=== PATIENT | female | born 1945 | race Caucasian/White ===

== ENCOUNTER → 2020-02-03 11:14 | Outpatient (CLI) | payer MEDICARE, SELFPAY ==
--- NOTE | ~2020-02-03 | XR_ITS ---
XR hip BI 2V w AP pelvis DATE: 02/03/2020 11:47 INDICATION: Bilateral hip pain TECHNIQUE: AP pelvis. AP and lateral views of each hip COMPARISON: None FINDINGS: Diffuse osteopenia. No pelvic fracture. No hip fracture or dislocation. The pubic symphysis and sacroiliac joints are i ntact. Hip joint spaces are preserved. Abdominal aortic and bilateral common iliac artery calcifications. IMPRESSION: Osteopenia No pelvic or hip fracture or bone destruction is detected. Reviewed, dictated and finalized at location B. R MANAGER
--- NOTE | ~2020-02-03 | MM_ITS ---
EXAMINATION: MM screening [facility] BI w samuel HISTORY: Screening mammogram TECHNIQUE: Craniocaudal and mediolateral oblique 3-D tomosynthesis images were obtained and synthetic 2-D images were generated. CAD analysis was submitted and interpreted. COMPARISON: 09/15/2018, 08/24/2017, 07/01/2016 BREAST PARENCHYMAL COMPOSITION: There are scattered areas of fibroglandular density. FINDINGS: Focal asymmetry of the central left breast has decreased in prominence compared to prior ex aminations. There is no evidence of suspicious mass, calcification, or architectural distortion to ulloa ggest malignancy in either breast. There has been no suspicious interval change. IMPRESSION: 1. No mammographic evidence of malignancy. 2. Recommend routine screening mammography in one year. BI-RADS Category 2: Benign finding(s). Reviewed, dictated and finalized at location A. WARE QUALITY AUTOMATION ENGINEER
--- NOTE | ~2020-02-03 | DEXA_ITS ---
Bone Density Report Name: Glendy Roblero Age: 74 Sex: Female Ethnicity: White Date of : 1945 Indication: postmenopausal osteoporosis; height loss; Referring Provider: Cristiana, Tere Callahan Study: Bone densitometry was performed. Exam Date: February 03, 2020 Accession number: [id number] Bone Density: Region BMD T-score Z-score Classification AP Spine (L1-L4) 0.607 -4.0 -1.7 Osteoporosis Femoral Neck (Left) 0.453 -3.6 -1.6 Osteoporosis Total Hip (Left) 0.463 -3.9 -2.2 Osteoporosis Femoral Neck (Right) 0.411 -3.9 -1.9 Osteoporosis Total Hip (Right) 0.463 -3.9 -2.2 Osteoporosis Total Hip Mean 0.463 -3.9 -2.2 Osteoporosis World Health Organization criteria for BMD impression classify patients as: Normal (T-score at or above -1.0), Osteopenia (T-score between -1.0 and -2.5), or Osteoporosis (T-score at or below -2.5). 10-year Fracture Risk: FRAX not reported because: Some T-score for Spine Total or Hip Total or Femoral Neck at or below -2.5 Previous Exams: Region Exam Age BMD T-score BMD Change BMD Change Date g/cm2 vs Baseline vs Previous AP Spine(L1-L4) 02/03/2020 74 0.607 -4.0 -0.213* -0.038* 07/01/2016 71 0.644 -3.7 -0.175* -0.074* 01/21/2013 67 0.718 -3.0 -0.101* -0.023* 04/12/2010 64 0.741 -2.8 -0.078* -0.004 03/13/2008 62 0.745 -2.7 -0.074* -0.037* 03/01/2007 61 0.782 -2.4 -0.037* -0.037* 02/05/2004 58 0.819 -2.1 Total Hip(Left) 02/03/2020 74 0.463 -3.9 -0.246* -0.067* 07/01/2016 71 0.530 -3.4 -0.180* -0.053* 01/21/2013 67 0.583 -2.9 -0.126* -0.028* 04/12/2010 64 0.611 -2.7 -0.098* -0.010 03/13/2008 62 0.621 -2.6 -0.088* -0.056* 03/01/2007 61 0.677 -2.2 -0.032* -0.032* 02/05/2004 58 0.709 -1.9 Total Hip(Right) 02/03/2020 74 0.463 -3.9 -0.280* -0.053* 07/01/2016 71 0.515 -3.5 -0.228* -0.073* 01/21/2013 67 0.589 -2.9 -0.154* -0.026 04/12/2010 64 0.615 -2.7 -0.128* -0.017 03/13/2008 62 0.632 -2.5 -0.111* -0.072* 03/01/2007 61 0.704 -2.0 -0.039* -0.039* 02/05/2004 58 0.743 -1.6 *Denotes significance at 95% confidence level, LSC for AP Spine = 0.022 g/cm2, LSC for Total Hip = 0.027 g/cm2 Clinical Information Provided by Patient:
== END ==
PROVIDERS: Visit Provider Nurse Practitioner Family
DX: Z12.31 Encounter for screening mammogram for malignant neoplasm of breast (principal); Z78.0 Asymptomatic menopausal state; M81.0 Age-related osteoporosis without current pathological fracture; M85.852 Other specified disorders of bone density and structure, left thigh; M85.851 Other specified disorders of bone density and structure, right thigh
CPT/HCPCS: 73521; 77063; 77067; 77080

== ENCOUNTER → 2021-07-01 16:01 | Outpatient (CLI) | payer MEDICARE, SELFPAY ==
--- NOTE | ~2021-07-01 | MM_ITS ---
EXAMINATION: MM screening kit BI w samuel HISTORY: Screening mammogram TECHNIQUE: Craniocaudal and mediolateral oblique 3-D tomosynthesis images were obtained and synthetic 2-D images were generated. CAD analysis was submitted and interpreted. COMPARISON: 02/03/2020, 09/15/2018, 08/24/2017 bilateral screening mammogram examinations BREAST PARENCHYMAL COMPOSITION: There are scattered areas of fibroglandular density. FINDINGS: Stable fibroglandular asymmetry. Occasional benign calcifications. There is no evidence of suspicious mass, calcification, or architectural distortion to suggest malignancy in either breast. T here has been no suspicious interval change. IMPRESSION: 1. No mammographic evidence of malignancy. 2. Recommend routine screening mammography in one year. BI-RADS Category 2: Benign finding(s). Reviewed, dictated and finalized at location A.
== END ==
PROVIDERS: PCP Nurse Practitioner Family; Visit Provider Nurse Practitioner Family
DX: Z12.31 Encounter for screening mammogram for malignant neoplasm of breast (principal)
CPT/HCPCS: 77063; 77067

== ENCOUNTER → 2022-09-05 13:14 | Outpatient (CLI) | payer MEDICARE, SELFPAY ==
--- NOTE | ~2022-09-05 | MM_ITS ---
EXAMINATION: MM screening kit BI w samuel HISTORY: Screening mammogram TECHNIQUE: Craniocaudal and mediolateral oblique 3-D tomosynthesis images were obtained and synthetic 2-D images were generated. CAD analysis was submitted and interpreted. COMPARISON: 07/01/2021, 02/03/2020 BREAST PARENCHYMAL COMPOSITION:There are scattered areas of fibroglandular density. FINDINGS: No suspicious mass, calcification, or architectural distortion are identified in either alana ast to suggest malignancy. There has been no suspicious interval change. IMPRESSION: No mammographic evidence of malignancy. Recommend routine screening mammography in one year. BI-RADS Category 1: Negative Reviewed, dictated and finalized at location .
== END ==
PROVIDERS: PCP Nurse Practitioner Family; Visit Provider Nurse Practitioner Family
DX: Z12.31 Encounter for screening mammogram for malignant neoplasm of breast (principal)
CPT/HCPCS: 77063; 77067

== ENCOUNTER 2023-04-15 15:55 | Outpatient (CLI) | payer MEDICARE, SELFPAY ==
[2023-04-15 16:20] LABS: Basophils Absolute Auto 0.1 K/mm3 (0.0-0.1); Basophils Percent Auto 0.4 % (0.2-1.2); Eosinophils Absolute Auto 0.1 K/mm3 (0-0.3); Eosinophils Percent Auto 0.3 % (0-4.4); Hematocrit 41.2 % (37.0-47.0); Hemoglobin 13.7 g/dL (12.0-15.0); Immature Granulocyte Absolute 0.08 K/mm3 (0.00-0.031); Immature Granulocyte Percent A 0.5 % (0-0.5); Lymphocytes Absolute Auto 2.28 K/mm3 (0.9-3.2); Mean Corpuscular HGB Conc 33.3 g/dl (32-36); Mean Corpuscular Hemoglobin 32.2 pg (26-34); Mean Corpuscular Volume 96.7 fl (80-100); Mean Platelet Volume 8.6 fl (7.4-10.4); Monocytes Absolute Auto 0.9 K/mm3 (0.1-0.6); Monocytes Percent Auto 5.3 % (2.6-8.5); Neutrophils Absolute Auto 12.9 K/mm3 (1.3-6.7); Neutrophils Percent Auto 79.5 % (45.5-73.1); Platelet Count Result 460 k/mm3 (150-375); Red Blood Count 4.26 M/mm3 (4.2-5.4); Red Cell Distribution Width 13.2 % (11.5-14.5); White Blood Count 16.2 K/mm3 (4.5-10.0)
[2023-04-15 17:12] LABS: Erythrocyte Sedimentation Rate 13 mm/hr (0-20)
[2023-04-15 18:33] LABS: Iron 76 ug/dL (37-170)
[2023-04-15 18:42] LABS: Percent Iron Saturation 23 % (20-50)
[2023-04-15 20:12] LABS: Alanine Aminotransferase 11 U/L (6-35); Albumin Level 4.7 g/dL (3.5-5.1); Alkaline Phosphatase 65 U/L (38-126); Anion Gap 9 mmol/L (8-16); Aspartate Amino Transferase 24 U/L (14-36); Bilirubin,Total 0.5 mg/dL (0.2-1.3); Blood Urea Nitrogen 6 mg/dL (7-17); CRP < 0.5 mg/dL (<1.0); Calcium 10.1 mg/dL (8.4-10.2); Carbon Dioxide 30 mmol/L (22-30); Chloride 97 mmol/L (98-107); Estimated Glomerular Filt Rate > 60; Glucose 105 mg/dL (65-110); Potassium 4.3 mmol/L (3.4-5.0); Sodium 136 mmol/L (137-145)
== END 2023-04-15 15:56 | disposition home or self-care (01) ==
PROVIDERS: Nurse Practitioner Family; PCP Nurse Practitioner Family; Visit Provider Internal Medicine Hematology & Oncology
DX: D72.829 Elevated white blood cell count, unspecified (principal); D50.9 Iron deficiency anemia, unspecified
CPT/HCPCS: 36415; 80053; 82728; 83540; 83550; 85025; 85652; 86140; 88184; 88185

== ENCOUNTER 2023-06-15 12:39 | Outpatient (CLI) | payer MEDICARE, SELFPAY ==
--- NOTE | ~2023-06-15 | CT_ITS ---
CT Scan of the Chest without Contrast: Clinical Indication: Lung cancer screening, nicotine dependence Technique: Contiguous sections were acquired throughout the chest without intravenous contrast. Dose reduction technique was used on this scan by utilizing automated exposure control and iterative recon struction technique. The dose-length product (DLP) was 32.61 mGy-cm. Findings: There is no evidence of any significant mediastinal, hilar or axillary lymphadenopathy. There are ath erosclerotic calcifications of the aorta. There is no evidence of pleural or pericardial effusion. There is advanced emphysema. There is a 4 mm fissural nodule right lung (axial image 66). Images through the upper abdomen reveal no abnormalities. Impression: Lung RADS 2: Benign appearance. 12 month follow-up screening CT advised. Advanced emphysema. Reviewed, dictated and finalized at [facility]. Impression: Lung RADS 2: Benign appearance. 12 month follow-up screening CT advised. Advanced emphysema.
== END 2023-06-15 12:40 ==
LOC: MICIMG 12:40
PROVIDERS: PCP Nurse Practitioner Family; Visit Provider Nurse Practitioner Family
DX: Z12.2 Encounter for screening for malignant neoplasm of respiratory organs (principal); Z87.891 Personal history of nicotine dependence; J43.9 Emphysema, unspecified
CPT/HCPCS: 71271

== ENCOUNTER 2023-06-29 10:53 | Outpatient (CLI) | payer MEDICARE, SELFPAY ==
[2023-06-29 11:11] LABS: Basophils Percent Auto 0.4 % (0.2-1.2); Eosinophils Absolute Auto 0.1 K/mm3 (0-0.3); Eosinophils Percent Auto 0.6 % (0-4.4); Hemoglobin 13.7 g/dL (12.0-15.0); Immature Granulocyte Absolute 0.04 K/mm3 (0.00-0.031); Immature Granulocyte Percent A 0.4 % (0-0.5); Lymphocytes Absolute Auto 2.31 K/mm3 (0.9-3.2); Lymphocytes Percent Auto 23.5 % (18.3-44.2); Mean Corpuscular HGB Conc 32.6 g/dl (32-36); Mean Corpuscular Hemoglobin 31.9 pg (26-34); Mean Corpuscular Volume 97.9 fl (80-100); Mean Platelet Volume 8.4 fl (7.4-10.4); Monocytes Absolute Auto 0.7 K/mm3 (0.1-0.6); Monocytes Percent Auto 6.8 % (2.6-8.5); Neutrophils Absolute Auto 6.7 K/mm3 (1.3-6.7); Neutrophils Percent Auto 68.3 % (45.5-73.1); Platelet Count Result 422 k/mm3 (150-375); Red Blood Count 4.29 M/mm3 (4.2-5.4); Red Cell Distribution Width 12.7 % (11.5-14.5); White Blood Count 9.8 K/mm3 (4.5-10.0)
[2023-06-29 11:20] LABS: Blood Urea Nitrogen 7 mg/dL (8-26); Carbon Dioxide 29 mmol/L (22-30); Chloride 97 mmol/L (98-109); Estimated Glomerular Filt Rate 54; Glucose 95 mg/dL (70-105); Ionized Calcium (POC) 1.14 mmol/L (1.11-1.31); Potassium 4.5 mmol/L (3.5-4.9); Sodium 136 mmol/L (138-146)
== END 2023-06-29 10:54 | disposition home or self-care (01) ==
LOC: ANHLAB 10:56
PROVIDERS: Nurse Practitioner Family; PCP Nurse Practitioner Family; Visit Provider Internal Medicine Hematology & Oncology
DX: D72.829 Elevated white blood cell count, unspecified (principal)
CPT/HCPCS: 36415; 80047; 85025

== ENCOUNTER 2023-07-09 13:07 | Outpatient (CLI) | payer MEDICARE, SELFPAY ==
--- NOTE | ~2023-07-09 | XR_ITS ---
EXAMINATION: XR scapula RT DATE: 07/09/2023 13:33 INDICATION: Right posterior thorax bump. TECHNIQUE: 2 views of right scapula were obtained. COMPARISON: None. FINDINGS: There is thoracic dextroscoliosis. No fracture. There is mild osteoarthritis of acromioclav icular joint. Glenohumeral joint is normal. IMPRESSION: 1. Mild right acromioclavicular joint osteoarthritis. Reviewed, dictated and finalized at location E.
--- NOTE | ~2023-07-09 | XR_ITS ---
EXAMINATION: XR thoracic spine 2V DATE: 07/09/2023 13:33 INDICATION: Kyphosis deformity of spine. TECHNIQUE: 2 views of thoracic spine were obtained. COMPARISON: Chest CT 06/15/2023. FINDINGS: There is 27 degrees dextroscoliosis of thoracic spine. There is kyphosis of thoracic spine. Vertebral body heights are normal. Intervertebral disc heights are normal. There are endplate osteop hytes at most levels. There is multilevel mild facet joint osteoarthritis. IMPRESSION: 1. Mild thoracic spondylosis. 2. Thoracic dextroscoliosis and kyphosis. Reviewed, dictated and finalized at location E.
== END 2023-07-09 13:08 ==
PROVIDERS: PCP Physician Assistant; Visit Provider Physician Assistant
DX: M43.04 Spondylolysis, thoracic region (principal); M41.84 Other forms of scoliosis, thoracic region; M40.204 Unspecified kyphosis, thoracic region
CPT/HCPCS: 72070; 73010

== ENCOUNTER 2023-12-30 13:04 | Outpatient (CLI) | payer MEDICARE, SELFPAY ==
[2023-12-30 13:26] LABS: Basophils Absolute Auto 0.1 K/mm3 (0.0-0.1); Basophils Percent Auto 0.5 % (0.2-1.2); Eosinophils Absolute Auto 0.1 K/mm3 (0-0.3); Eosinophils Percent Auto 0.6 % (0-4.4); Hematocrit 40.4 % (37.0-47.0); Hemoglobin 12.9 g/dL (12.0-15.0); Immature Granulocyte Absolute 0.06 K/mm3 (0.00-0.031); Immature Granulocyte Percent A 0.5 % (0-0.5); Lymphocytes Absolute Auto 2.05 K/mm3 (0.9-3.2); Lymphocytes Percent Auto 16.4 % (18.3-44.2); Mean Corpuscular HGB Conc 31.9 g/dl (32-36); Mean Corpuscular Hemoglobin 31.4 pg (26-34); Mean Corpuscular Volume 98.3 fl (80-100); Mean Platelet Volume 8.2 fl (7.4-10.4); Monocytes Absolute Auto 0.7 K/mm3 (0.1-0.6); Monocytes Percent Auto 5.8 % (2.6-8.5); Neutrophils Absolute Auto 9.6 K/mm3 (1.3-6.7); Neutrophils Percent Auto 76.2 % (45.5-73.1); Platelet Count Result 406 k/mm3 (150-375); Red Blood Count 4.11 M/mm3 (4.2-5.4); Red Cell Distribution Width 13.5 % (11.5-14.5); White Blood Count 12.5 K/mm3 (4.5-10.0)
[2023-12-30 13:31] LABS: Blood Urea Nitrogen 6 mg/dL (8-26); Carbon Dioxide 26 mmol/L (22-30); Chloride 97 mmol/L (98-109); Estimated Glomerular Filt Rate > 60; Glucose 112 mg/dL (70-105); Ionized Calcium (POC) 1.14 mmol/L (1.11-1.31); Potassium 3.8 mmol/L (3.5-4.9); Sodium 135 mmol/L (138-146)
[2023-12-30 17:06] LABS: Alanine Aminotransferase 8 U/L (6-35); Albumin Level 4.2 g/dL (3.5-5.1); Alkaline Phosphatase 50 U/L (38-126); Anion Gap 8 mmol/L (4-12); Aspartate Amino Transferase 21 U/L (14-36); Bilirubin,Total 0.4 mg/dL (0.2-1.3); Blood Urea Nitrogen 8 mg/dL (7-17); Calcium 9.2 mg/dL (8.4-10.2); Carbon Dioxide 29 mmol/L (22-30); Chloride 97 mmol/L (98-107); Cholesterol 169 mg/dL (0-200); Estimated Glomerular Filt Rate > 60; Glucose 115 mg/dL (65-110); HDL Direct 65 mg/dL; Potassium 3.9 mmol/L (3.4-5.0); Sodium 134 mmol/L (137-145); Triglycerides 77 mg/dL (<150)
[2023-12-30 17:18] LABS: LDL Cholesterol Direct 78 mg/dL
[2023-12-30 17:38] LABS: Thyroid Stimulating Hormone 0.787 uIU/mL (0.465-4.680)
[2023-12-30 21:26] LABS: Free T4 Free Thyroxine 1.01 ng/mL (0.78-2.19)
== END 2023-12-30 13:05 | disposition home or self-care (01) ==
LOC: ANHLAB 13:06
PROVIDERS: Nurse Practitioner Family; PCP Physician Assistant; Visit Provider Internal Medicine Hematology & Oncology
DX: Z13.220 Encounter for screening for lipoid disorders (principal); Z79.899 Other long term (current) drug therapy
CPT/HCPCS: 36415; 80047; 80048; 80061; 80076; 84439; 84443; 85025

== ENCOUNTER 2024-07-01 13:27 | Outpatient (CLI) | payer MEDICARE, SELFPAY ==
--- NOTE | ~2024-07-01 | CT_ITS ---
EXAMINATION: CT lung screening DATE: 07/01/2024 14:35 INDICATION: Nicotine dependence TECHNIQUE: Computed tomography (CT) of the chest was performed without intravenous contrast. The dose -length product was 63.56 mGy-cm. Automated exposure control and iterative reconstruction technique w ere employed. COMPARISON: CT dated 06/15/2023 FINDINGS: Heart size normal. No thoracic lymphadenopathy. There is atherosclerosis of the aorta and c oronary arteries. No significant pleural or pericardial effusion. There is dextroscoliosis of the tho racic spine. No focal lytic or blastic lesions are seen. Severe emphysema. Stable 4 mm fissural nodul e on the right there is dependent atelectasis. No pneumothorax. IMPRESSION: 1. Lung-RADS category 2: Benign appearance or behavior. Continue annual screening with noncontrast lo w-dose chest CT in 12 months. Reviewed, dictated and finalized at location A. IMPRESSION: 1. Lung-RADS category 2: Benign appearance or behavior. Continue annual screeni ng with noncontrast low-dose chest CT in 12 months.
--- OUTSIDE RECORDS SUMMARY | 2024-07-01 13:33 | XMS_ITS | CONTINUITY OF CARE DOCUMENT ---
Author Name felipe wang Address Unknown Organization [facility] Address [address] [facility] [address] [place] [address] Phone [phone] Care Team Providers Care Packager Or Packer And Weigher Name Role Phone felipe wang Unavailable Unavailable
--- OUTSIDE RECORDS SUMMARY | 2024-07-01 13:34 | XMS_ITS | Continuity of Care Document ---
Author Organization [facility] Address [address] [place] [address] [place] [address] Phone Care Team Providers Care Filter Washer And Presser Name Role Phone Gamal Recio Unavailable Unavailable [...] Providers Copied on Encounter Office/outpat ient Visit, [facility], [address] [place] [address] [address], [place], [place], [id number], [place] tel:[phone] [facility] No Information 2-201 0 Hemal Yeung. Arlet [facility] [address], [place], [address], [place]. tel:[phone] Referring Provider: Arlet Calderon [facility] [address], [place], [address]. tel:[phone] Office/outpat ient Visit, [facility], [address] [place] [address] [address], [place], [place], [id number], [place] tel:[phone] [facility] [place] No Information Mar-0 9-201 0 Valente Petel. [address], [place], [place], [facility], . tel:[phone] Office/outpat ient Visit, [facility], [address], [place], [place], [address], [place] tel:[phone] [facility] No Information Oct-0 5-200 9 Doisy Edward. [address], [place], [place], [facility], [place]. tel:[phone] [facility]pat [facility], [facility], [address] [place] [address] [address], [place], [place], [address], [place] tel:[phone] [facility] No Information Sep-2 1-200 9 Doisy Edward. [address], [place], [place], [facility], [place]. tel:[phone] [facility], [address] [place] [address] [address], [place], [place], [id number], [place] tel:[phone] [facility] No Information Benton-3 1-200 9 Doisy Edward. [address], [place], [place], [facility], [place]. tel:[phone] Office/outpat ient Visit, [facility], [address] [place] [address] [address], [place], [place], [id number], [place] tel:[phone] [facility] [place] No Information Robby-0 9-200 8 Doisy Edward. [address], [place], [place], [facility], [place]. tel:[phone] [facility]/outpat ient Visit, [facility], [address], [place], [place], [id number], tel:[phone] [facility] No Information 200 7 Hemal Yeung. [address] [place] [address] , [address], [place], [place], [facility], . tel:[phone] Referring Provider: Arlet Calderon [facility] [address], [place], [place], [facility]. tel:[phone] [facility], [address], [place], [place], [id number], tel:[phone] [facility] [place] No Information 7 Hemal Yeung. [address] [place] [address] , [address], [place], [place], [facility], . tel:[phone] Referring Provider: Arlet Calderon [facility] [address], [place], [place], [facility]. tel:[phone] Family History Family Member Type Diagnosis Age At Onset No Information Payers Payer name Insurance type Covered republican ID Authoriza tion(s) No Information Social History [...]
--- OUTSIDE RECORDS SUMMARY | 2024-07-01 13:34 | XMS_ITS | Data Portability ---
Author Organization [facility]ju[facility]ita[facility] Patience Address [address] [place] [address] Care Team Providers Care Salesperson Jewelry Name Role Phone MARY GUDINO Primary Care Provider Unavailab le Assessment No assessment recorded. Plan of Treatment Reminders Order Date Submit Date Provider Last Modified By Organization Details Last Modified Time Details Appointments ANY 15 2024 01:00P M HARDIK Reilly Not available Not available Not available [facility], [facility]24 [email or web address], [address], [place], [address], 04/01/2024 14:03:10 hepatic function panel, serum 2023 024 [email or web address], 20[address], [place], [address], 04/01/2024 14:03:09 BMP, serum or plasma 2023 024 [email or web address], [address], [place], [address], 04/01/2024 14:03:09 TSH + free T4, serum 2023 024 [email or web address], [address], [place], [address], 04/01/2024 14:03:10 Referral None recorded. Procedures None recorded. Surgeries None recorded. Imaging XR, thoracic spine, 2 view 2023 024 [facility], 2022 Mirtha [address], [address], [place], [address], 07/10/2023 07:26:35 XR, scapula [address] [facility], 2022 [address], [place], [address], 07/29/2023 13:55:35 MAMMO, screening , digital, bilateral [address] [facility], [address]22 [address], [place], [address], 03/08/2024 09:41:10 DEXA [address], 2022 [address], [address], [place], [address], 03/08/2024 09:41:04 Medication Orders None recorded. Patient TargetsNo targets recorded. Patient InstructionsNo instructions recorded. Reason for Referral None Reported. Results Created Date Observation Date Name Description Value Unit Range Abnormal Flag Note LastModifiedBy Organization Detail LastModifiedTime 07/10/19 24 07/09/2023 XR, thora cic spine , 2 view No observ ation record ed. [email or web address] 20[address], [place], [address], 07/14/2023 17:47:16 Result Notes None recorded. Problems Name Problem SNOMED Code Status Onset Date Resolution Date Notes Provider Name and Address Organization Details Recorded Time Bilateral hip joint pain 6658838860730 9100 Active 2023 HARDIK Reilly Attn: Rebeka xie,[address] [facility], [place], [address], [place] - [facility] 4 15:47:17 Chronic obstructive pulmonary disease 30469011 Active 2023 HARDIK Reilly Attn: Rebeka xie,[address] [facility], [place], [address], [place] [facility] 4 15:47:18 Leukocytosi s 127399203 Active 2023 HARDIK Reilly Attn: Rebeka xie,[address] [place], [address], [place] [facility] 4 15:47:19 Hypoxemia 522650511 Active 2023 HARDIK Reilly Attn: Rebeka xie,[address] [place], [address], [place] [facility] 4 15:47:22 Kyphosis deformity of spine 711453157 Active 2023 HARDIK Reilly Attn: Rebeka xie,[address] [place], [address], [place] [facility] 4 15:47:24 Long-term drug therapy Active 2023 HARDIK Reilly Attn: Rebeka g,[address] [place], [address], [place] [facility] 4 15:47:30 Allergic rhinitis 02455911 Active 2023 Alison Reyna LPN null, [place] [facility] 4 10:04:29 Body mass index less than 20 278367727 Active 2023 HARDIK Reilly Attn: Rebeka xie,[address] [place], [address], [place] [facility] 4 10:12:29 Problem Notes None recorded. Procedures Surgical History None recorded. Imaging Results Imaging Date Name Status LastModified by Organiz ation Details LastModified Time 07/09/2023 XR, thoracic spine, 2 view completed [facility] [address], [place], [address], 07/14/2023 17:47:16 Procedure Notes None recorded. Medical Equipment None Reported. Allergies Allergen ID Allergen Name Allergen Category Reaction Reaction Severity Criticality Documentation Date Start Date Code Code System Note Provider Name and Address Organization Details Recorded Time 691075 codeine medicatio n Not available Not available Not available 07/08/2023 2670 RxNorm Not Available Not Available Not Available 199292 Product containin g penicilli n (product) medicatio n Not available Not available Not available 07/08/2023 20820 8001 SNOMED Not Available Not Available Not Available 550421 ibuprofen medicatio n Not available Not available Not available 07/08/2023 5640 RxNorm Not Available Not Available Not Available Medications Name Sig Start Date Stop Date Status Note LastModified by Organization Details LastModified Time nystatin 100,000 unit/mL oral suspension SHAKE LIQUID AND TAKE 5 ML BY MOUTH FOUR TIMES DAILY NEEDED active Not Available Not Available No t Available hydrocortison e 2.5 % topical cream with perineal applicator APPLY THIN LAYER TOPICALLY TO THE AFFECTED AREA 2 TO 4 TIMES DAILY NEEDED active Not Available Not Available No t Available montelukast 10 mg tablet TAKE 1 TABLET BY MOUTH EVERY DAY active Not Available Not Available No t Available gabapentin 100 mg capsule TAKE 1 CAPSULE BY MOUTH EVERY OTHER DAY active Not Available Not Available No t Available fluticasone propionate 50 mcg/actuation nasal spray,suspens ion SHAKE LIQUID AND USE 2 SPRAYS IN EACH NOSTRIL AT SUPPER active Not Available Not Available No t Available Ventolin HFA 90 mcg/actuation aerosol inhaler INHALE 1 TO 2 PUFFS BY MOUTH EVERY 4 TO 6 HOURS NEEDED FOR SHORTNESS OF BREATH OR WHEEZING active Not Available Not Available No t Available Vitamin D3 50 mcg (2,000 unit) capsule Take by oral route. active Not Available Not Available No t Available Anoro Ellipta 62.5 mcg-25 mcg/actuation powder for inhalation INHALE 1 PUFF BY MOUTH DAILY active Not Available Not Available No t Available Vitals Date Recorded Body height Body mass index (BMI) Body weight Oxygen saturation Oxygen saturation in Arterial blood by Pulse oximetry Heart rate Systolic blood pressure Diastolic blood pressure Provider Name and Address Organization Details Last Updated DateTime 4 155.58 cm 16.7 kg/m2 31859.7 2 g 89 % 89 % 101 /min 130 mm[Hg] 72 mm[Hg] Kassy Roper [place] - [facility] 4 15:34:41 Date Recorded Respiratory rate Oxygen saturation Oxygen saturation in Arterial blood by Pulse oximetry Systolic blood pressure Diastolic blood pressure Systolic blood pressure Diastolic blood pressure Provider Name and Address Organization Details Last Updated DateTime 4 18 /min 94 % 94 % 140 mm[Hg] 80 mm[Hg] 132 mm[Hg] 80 mm[Hg] HARDIK Reilly Attn: Rebeka xie,[address] [facility], [place], [address], [facility] 4 16:00:16 Date Recorded Body height Body mass index (BMI) Body weight Respiratory rate Oxygen saturation Oxygen saturation in Arterial blood by Pulse oximetry Heart rate Systolic blood pressure Diastolic blood pressure Provider Name and Address Organization Details Last Updated DateTime 4 155.58 cm 15.6 kg/m2 73663.3 5 g 18 /min 96 % 96 % 88 /min 138 mm[Hg] 88 mm[Hg] Kassy Roper MA [facility] 4 15:27:13 Social History Question Answer Notes LastModified by Organizat ion Details LastModified Time Tobacco Smoking Status Current Every Day Smoker Kassy Roper MA null, [facility] 07/08/2023 15:29:20 Do You Have An Advance Directive? Yes Information n ot available 07/08/2023 What Is Your Level Of Alcohol Consumption? None Information not available 07/08/2023 Are You Blind Or Do You Have Difficulty Seeing? No Information n ot available 07/08/2023 What Is Your Level Of Caffeine Consumption? None DECAFE/ Information not available 07/08/2023 In The 14 Days Before Symptom Onset, Have You Had Close Contact With A Laboratory-confirm ed COVID-19 While That Case Was Ill? No Information n ot available 07/08/2023 In The 14 Days Before Symptom Onset, Have You Had Close Contact With A Person Who Is Under Investigation For COVID-19 While That Person Was Ill? No Information not available 07/08/2023 Have You Been To An Area Known To Be High Risk For COVID-19? No Information not available 07/08/2023 Are You Deaf Or Do You Have Serious Difficulty Hearing? No Information not available 07/08/2023 What Type Of Diet Are You Following? REGULAR Information n ot available 07/08/2023 Are There Any Guns Present In Your Home? No Information not available 07/08/2023 What Was The Date Of Your Most Recent Tobacco Screening? 12/16/2023 Information not available 12/16/2023 What Is Your Current Pack Years? 20-29packye ars Information not available 07/08/2023 Do You Use Your Seat Belt Or Car Seat Routinely? Yes Information not available 07/08/2023 Do You Have Smoke And Carbon Monoxide Detectors In Your Home? Yes Information not available 07/08/2023 How Much Tobacco Do You Smoke? 1 PPD Information not available 07/08/2023 Do You Feel Stressed (tense, Restless, Nervous, Or Anxious, Or Unable To Sleep At Night)? [id number] Information not available 07/08/2023 Do You Use Any Illicit Or Recreational Drugs? No Information not available 07/08/2023 Do You Use Sunscreen Routinely? No Information not available 07/08/2023 Has Tobacco Cessation Counseling Been Provided? Yes Information not available 07/08/2023 On What Date Was Tobacco Cessation Counseling Provided? 12/16/2023 Information not available 12/16/2023 Do You Or Have You Ever Used Any Other Forms Of Tobacco Or Nicotine? No Information not available 07/08/2023 Sex: Female Functional Status Question Answer Note LastModified by Organizat ion Details LastModified Time Are you able to care for yourself? Yes Information not available 07/08/2023 What is your exercise level? Occasional Information not available 07/08/2023 Mental Status None recorded. Family History Relationship Description Onset Age of this Age Resolved Age Notes LastModified by Organization Details LastModified Time Mother Hypertensive disorder [email or web address] Not available 2023 16:19:57 Mother Hypercholest erolemia tcarterma Not available 2023 16:20:04 Mother Diabetes mellitus [email or web address] Not available 2023 16:20:10 Medical History Condition Response Coronary Artery Disease N Other N Atrial Fibrillation N High Blood Pressure N Depression N COPD Y Blood Clots N Anxiety Disorder N Muscle, Joint, or Bone Problems Y Acid Reflux (GERD) N Cancer Y Stroke N High Cholesterol N Liver Disease N Headaches N Kidney or Bladder Problems N Thyroid Problems N GI Problems N Skin Problems N Anemia N Heart Attack (NC) N Diabetes N Seizures/Epilepsy N Asthma N Allergies N Hepatitis N Heart Failure N Osteoporosis N Gynecological History Statement/Question Response Menses Monthly N Current Control Method None Obstetrics History GPAL:G 0 P 0 0 0 0 Immunizations Vaccine Type Date Status Note Provider Nam e and Address Organization Details Recorded Time Influenza, split virus, quadrivalent, preservative 0 completed EDUARDO Bauer, [place] - [facility] 12/30/2023 13:59:53 Influenza, split virus, quadrivalent, preservative 8 completed Kassy Roper [place], [place] [facility] 12/30/2023 13:59:53 Influenza, adjuvanted, trivalent, PF 8 completed Kassy [place] [facility] 12/30/2023 13:59:53 Influenza, adjuvanted, trivalent, PF 7 completed Kassy [place] [facility] 12/30/2023 13:59:53 Influenza, high-dose, quadrivalent, PF 2 completed Kassy [place] [facility] 12/30/2023 13:59:53 Influenza, high-dose, quadrivalent, PF 0 completed Kassy [place] [facility] 12/30/2023 13:59:53 Influenza, high-dose, quadrivalent, PF 1 [place] [facility] 12/30/2023 13:59:53 Influenza, high-dose, quadrivalent, PF 3 [place] [facility] 12/30/2023 13:59:53 COVID-19, mRNA, LNP-S, PF, 30 mcg/0.3 mL dose 1 [place] ED[place] [facility] 12/30/2023 13:59:53 COVID-19, mRNA, LNP-S, PF, 30 mcg/0.3 mL dose 1 completed Kassy [place] [facility] 12/30/2023 13:59:53 COVID-19, mRNA, LNP-S, PF, 30 mcg/0.3 mL dose 1 completed Kassy [place] [facility] 12/30/2023 13:59:53 COVID-19, mRNA, LNP-S, PF, 30 mcg/0.3 mL dose 1 [place] [facility] 12/30/2023 13:59:53 pneumococcal polysaccharide PPV23 0 [place] ED[place] [facility] 12/30/2023 13:59:53 Pneumococcal conjugate PCV 13 9 completed Kassy [place] [facility] 12/30/2023 13:59:53 Pneumococcal conjugate PCV 13 9 completed Kassy [place] [facility] 12/30/2023 13:59:53 Influenza, high-dose, trivalent, PF 4 completed [place]assy [place] [facility] 12/30/2023 13:59:53 Influenza, high-dose, trivalent, PF 6 completed Kasys Roper [place] [facility] 12/30/2023 13:59:53 Influenza, high-dose, trivalent, PF 6 completed [place]assy [place] [facility] 12/30/2023 13:59:53 Influenza, split virus, trivalent, preservative 1 completed [place]assy [place] [facility] 12/30/2023 13:59:53 Influenza, split virus, trivalent, preservative 3 completed [place]assy [place] [facility] 12/30/2023 13:59:53 Influenza, split virus, quadrivalent, PF 9 completed Kassy Roper MA null, [place] - [facility] 12/30/2023 13:59:53 Influenza, high-dose, trivalent, PF 4 completed HARDIK Reilly Attn: Accounting,[address] [facility], [place], [address], [facility] 12/31/2023 14:28:21 Past Encounters Encounter ID Performer Location Encounter Start Date Encounter Closed Date Diagnosis/Indication Diagnosis SNOMED-CT Code Diagnosis ICD10 Code Diagnosis Note [id number] HARDIK Reilly [facility] [employer] [address] [place] [address] 07/08/2023 15:05:31 07/08/2023 16:10:39 Chronic obstructive pulmonary disease 15602219 J44.9 Pulmonary is TANMA[facility] Becerra [facility]. Leukocytosis 127902674 D 72.[address] Brownlee and her WBC improved and she follows up in 6 months. Bilateral hip joint pain 6957383936 4608275 M25.551 M25.552 hx noted. sees pain management . Long-term drug therapy 661942950 Z79.899 will await records that she will bring us tomorrow. she thinks labs were done in the winter plus dr. Brownlee completed some recently. Kyphosis d eformity of spine 376311915 M40.209 check xray tspine and scapula with deformity noted on exam today Screening mammography 24 177600 Z12.31 annual mammogram due Screening for osteoporosis 096348750 Z13.820 due for DEXA screening. Hypoxemia 329110790 R09. 02 86% on room air after walking, up to 94% with rest. [id number] HARDIK Reilly [facility] [employer] [address] [place] [address] 12/16/2023 14:38:45 12/24/2023 11:54:41 Chronic obstructive pulmonary disease 20044711 J44.9 Pulmonary is [facility]. Leukocytosis 403000835 D 72.[address] Brownlee and her WBC improved and she follows up in 6 months. Bilateral hip joint pain 9622606041 4772343 M25.551 M25.552 hx noted. sees pain management . Hypoxemia 354574810 R09. 02 86% on room air after walking, up to 94% with rest. Kyphosis d eformity of spine 009055824 M40.209 check xray tspine and scapula with deformity noted on exam today Long-term drug therapy 115451527 Z79.899 All routine labs were ordered for routine six-month evaluation Cholesterol screening 27 4828800 Z13.220 Body mass index less than 20 892531760 Z68.1 15.6 [id number] HARDIK Reilly [facility] [address] [place] [address] 12/31/2023 14:07:26 01/04/2024 15:07:00 Administration of influenza vaccine 54661628 Z23 Health Concerns Section Related Observation LastModified by Organization Detai ls LastModified Time None Recorded Concern Status LastModified by Organization Details LastModified Time None Recorded Advance Directives Directive Y: Payers Encounter Date Sequence Insurance Name Policy Number Policy Paul Covered Member ID Paul Member ID Guarantor Name 07/08/2023 1 [place] Glendy Roblero [id number] 2 Glendy Roblero 07/08/2023 2 [place] [id number] Glendy Roblero [id number] Glendy Roblero 12/16/2023 2 [place] [id number] Glendy Roblero [id number] Glendy Roblero 12/16/2023 [place] [facility] Glendy Roblero [id number] 2 Glendy Roblero 12/31/2023 1 [place] Glendy Roblero [id number] 2 Glendy Roblero 12/31/2023 2 [place] [id number] Glendy Roblero [id number] Glendy Roblero Notes Date Note Type Note Provider Name and Address Organization Details Recorded Time 07/08/2023 text/html COPDReported bypatient.Notes:bolivar ing Anoro Ellipta inhaler.Hip(s)Repor kevyn bypatient.Notes:arden at. hip arthritis. sees pain management and gets gabapentin 100mg daily. HARDIK Reilly Attn: Accounting,[address] [place], [address], [facility] 07/15/2023 13:40:25 12/16/2023 text/html COPDReported bypatient.Notes:bolivar ing Anoro Ellipta inhaler. Patient follows with salon manager for managementHip(s)Rep orted bypatient.Notes:arden at. hip arthritis. sees pain management and gets gabapentin 100mg daily. Patient has chronic leukocytosis and follows with oncology hematology for management and evaluation HARDIK Reilly Attn: Accounting,[address] [place], [address], [facility] 01/04/2024 10:12:51 OBGyn Episode No OBEpisode recorded.
--- OUTSIDE RECORDS SUMMARY | 2024-07-01 13:34 | XMS_ITS | Data Portability ---
Author Organization [place] [facility] [employer], Main Office Address [address] [place] [address] Assessment Encounter Date Assessment Date Assessment LastModified by Organization Details LastModified Time 06/16/2022 06/16/2022 Cscope- 03/2018- [facility] repeat 2023 Mammo- 06/2021 DEXA- osteoporosis, refuses meds LDCT- per pulm WWE- DRY PLASTERER- Dr. Chan Call office if worse, ER if life threatening illness RTC 4 months She voices understanding of plan and agrees [email or web address] Not available 06/16/2022 15:06:29 10/14/2022 10/14/2022 Cscope- 03/2018- [facility] repeat 2023 Mammo-08/2022 DEXA- osteoporosis, refuses meds LDCT- per pulmiguel BAINS- DRY PLASTERERJacey Chan Call office if worse, ER if life threatening illness RTC 4 months She voices understanding of plan and agrees [email or web address] Not available 10/14/2022 13:59:34 02/10/2023 02/10/2023 Cscope- 03/2018- [facility] repeat 2023 Mammo-08/2022 DEXA- osteoporosis, refuses meds LDCT- per pulmiguel ROLONE- DRY PLASTERER- Dr. Chan Call office if worse, ER if life threatening illness RTC 4 months- plans to transfer to PCP out of [facility] She voices understanding of plan and agrees [email or web address] Not available 02/10/2023 15:23:57 Plan of Treatment Reminders Order Date Submit Date Provider Last Modified By Organization Details Last Modified Time Details Appointments None recorded. Lab vitamin D, 25-hydroxy, total, serum 2022 023 [email or web address] [facility] (Lab), [address] [place], [address], 4 15:46:33 CMP, serum or plasma 2022 023 [facility] (Lab), [address] [place], [address], 3 17:19:48 CBC w/ auto diff 2022 023 [facility] (Lab), [address] [place], [address], 3 17:09:49 lipid panel, serum 2022 023 [facility] (Lab), [address] [place], [address], 3 17:19:58 vitamin D, 25-hydroxy, total, serum [address] (Lab), [address] [place], [address], 3 09:18:51 CBC w/ auto diff 2022 023 [facility] (Lab), [address] [place], [address], 3 17:03:00 CMP, serum or plasma 2022 023 [facility] (Lab), [address] [place], [address], 3 19:09:58 lipid panel, serum 2022 023 [facility] (Lab), [address] [place], [address], 3 19:10:03 TSH, serum or plasma 2022 023 [facility] (Lab), [address] [place], [address], 19:23:22 Referral None recorded. Procedures None recorded. Surgeries None recorded. Imaging LDCT, chest, for lung cancer screening - DUE 12/2022 023 [email or web address] [facility], [address], [place], [address], 09:48:25 MAMMO, screening, bilateral 2022 023 [email or web address] [facility], [address], [place], [address], 17:20:24 Medication Orders montelukast 10 mg tablet 2022 023 [id number], [address], [place], [place], [id number], 3 14:53:31 Anoro Ellipta 62.5 mcg-25 mcg/actuati on powder for inhalation 2022 023 [facility] #[id number], [address], [place], [place], [id number], 3 14:53:30 fluticasone propionate 50 mcg/actuati on nasal spray,suspe nsion 2022 023 [facility] #[id number], [address], [place], [place], [id number], 3 14:19:12 Anusol-HC 2.5 % topical cream with perineal applicator 2022 023 [facility] #[id number], [address], [place], [place], [id number], 14:19:12 Patient TargetsNo targets recorded. Patient Instructions Encounter Date Encounter Id Patient Instructions Last Modified By Organization Details Last Modified Time 10/14/2022 [id number] dementia rating scale-2* [email or web address] Not available 10/14/2022 14:27:15 depression screening* Not available 10/14/2022 15:30:28 multi-dimensiona l health assessment questionnaire* [email or web address] Not available 10/14/2022 14:27:15 Personalized [facility] Plan and Screening Recommendations Advance Directives - Do you have one? Yes Advance Directives - Do we have your advance directive on file in your health record? No, please bring in a copy at your earliest convenience Primary Prevention/Interven tion (prevents or decreases the chance of common diseases from occurring) Smoking Risk: Smoker Refer to attached smoking cessation handouts Alcohol Misuse Screening: Negative Weight: Underweight monitor weight weekly and call if continue to lose weight Physical activity: Need more exercise/physical activity minimum of 10-20 minutes of activity that causes mild breathlessness/day minimum of 20-30 minutes activity that causes mild breathlessness/day minimum of 30-40 minutes of activity that causes mild breathlessness/day Nutrition: Good Average Refer to attached handout Heart-Healthy Diet: After Your Visit Fall Risk (screened today): Low Intermediate Refer to attached handout Preventing Falls: After your Visit Vaccines Pneumococcal: Ordered Recommended today Recommended today, but you have declined No further needed Influenza: Your next one in the fall of this year Chronic Disease Risks Stroke: Low Risk Intermediate Risk Heart Attack: Low risk Intermediate Risk Clogging of the Arteries: Low risk Intermediate Risk Diabetes: Low Risk Secondary Prevention/Interven tion (detects treatable diseases before they may cause symptoms, disability, or ) Breast Cancer Screening with mammogram: Cervical/Uterine/Ov cristal Cancer Screening: No screening necessary Osteoporosis Screening: Your next DEXA in: Ordered Recomme nded today Recommended today, but you have declined Date Screening Last Performed: Colon Cancer Screening: Colonoscopy Date Screening Last Performed: Eye Disease Screening: Ordered Recommended today Dementia Risk: Low Depression Screening: Negative [email or web address] Not available 10/14/2022 14:28:51 Reason for Referral None Reported. Results Created Date Observation Date Name Description Value Unit Range Abnormal Flag Note LastModifiedBy Organization Detail LastModifiedTime 06/17/1906/16/2022 CBC/C OMPLE TE BLD COUNT W/DIF F white blood cells 9.9 x10'3 /uL 4.2-10 .8 Not Available [facility] (Lab) [address] [place], [address], 06/16/2022 17:03:00 06/17/19 23 06/16/2022 CBC/C OMPLE TE BLD COUNT W/DIF F red blood cells 4.07 x10'6 /uL 3.80-5 .20 Not Available [facility] (Lab) [address] [facility] [place], [address], 06/16/2022 17:03:00 06/17/19 23 06/16/2022 CBC/C OMPLE TE BLD COUNT W/DIF F hemoglobin 12.6 g/dL 12.0-1 5.6 Not Available [facility] (Lab) [address] [place], [address], 06/16/2022 17:03:00 06/17/19 23 06/16/2022 CBC/C OMPLE TE BLD COUNT W/DIF F hematocrit 39.0 % 35.7-4 5.7 Not Available [facility] (Lab) [address] [place], [address], 06/16/2022 17:03:00 06/17/19 23 06/16/2022 CBC/C OMPLE TE BLD COUNT W/DIF F mean red cell volume 95.8 fL 82.0-9 9.0 Not Available [facility] (Lab) [address] [place], [address], 06/16/2022 17:03:00 06/17/19 23 06/16/2022 CBC/C OMPLE TE BLD COUNT W/DIF F mean red cell hemoglobin 31.0 pg 27.0-3 3.0 Not Available [facility] (Lab) [address] [place], [address], 06/16/2022 17:03:00 06/17/19 23 06/16/2022 CBC/C OMPLE TE BLD COUNT W/DIF F mean RBC HGB concentratio n 32.3 g/dL 31.0-3 6.0 Not Available [facility] (Lab) [address] [place], [address], 06/16/2022 17:03:00 06/17/19 23 06/16/2022 CBC/C OMPLE TE BLD COUNT W/DIF F red cell distribution width 13.1 % 11.8-1 5.5 Not Available [facility] (Lab) [address] [place], [address], 06/16/2022 17:03:00 06/17/19 23 06/16/2022 CBC/C OMPLE TE BLD COUNT W/DIF F platelets 414 x10'3 /uL 150-40 0 high Not Available [facility] (Lab) [address] [place], [address], 06/16/2022 17:03:00 06/17/1906/16/2022 CBC/C OMPLE TE BLD COUNT W/DIF F mean platelet volume 9.2 fL 9.0-12 .4 Not Available [facility] (Lab) [address] [place], [address], 06/16/2022 17:03:00 06/17/19 23 06/16/2022 CBC/C OMPLE TE BLD COUNT W/DIF F neutrophils 60.7 % 39.0-7 2.0 Not Available [facility] (Lab) [address] [place], [address], 06/16/2022 17:03:00 06/17/19 23 06/16/2022 CBC/C OMPLE TE BLD COUNT W/DIF F lymphocytes 30.2 % 16.0-4 7.0 Not Available [facility] (Lab) [address] [place], [address], 06/16/2022 17:03:00 06/17/19 23 06/16/2022 CBC/C OMPLE TE BLD COUNT W/DIF F monocytes 7.1 % 5.0-12 .0 Not Available [facility] (Lab) [address] [place], [address], 06/16/2022 17:03:00 06/17/19 23 06/16/2022 CBC/C OMPLE TE BLD COUNT W/DIF F eosinophils 1.0 % 1.0-7. 0 Not Available [facility] (Lab) [address] [place], [address], 06/16/2022 17:03:00 06/17/19 23 06/16/2022 CBC/C OMPLE TE BLD COUNT W/DIF F basophils 0.6 % 0.0-2. 0 Not Available [facility] (Lab) [address] [place], [address], 06/16/2022 17:03:00 06/17/1906/16/2022 CBC/C OMPLE TE BLD COUNT W/DIF F immature granulocytes 0.4 % 0.00-0 .50 Not Available [facility] (Lab) [address] [place], [address], 06/16/2022 17:03:00 06/17/1906/16/2022 CBC/C OMPLE TE BLD COUNT W/DIF F neutrophils, absolute count 5.99 x10'3 /uL 1.5-8. 0 Not Available [facility] (Lab) [address] [place], [address], 06/16/2022 17:03:00 06/17/19 23 06/16/2022 CBC/C OMPLE TE BLD COUNT W/DIF F lymphocytes, absolute count 2.98 x10'3 /uL 1.07-3 .43 Not Available [facility] (Lab) [address] [place], [address], 06/16/2022 17:03:00 06/17/1906/16/2022 CBC/C OMPLE TE BLD COUNT W/DIF F monocytes, absolute count 0.70 x10'3 /uL 0.29-0 .99 Not Available [facility] (Lab) [address] [place], [address], 06/16/2022 17:03:00 06/17/19 23 06/16/2022 CBC/C OMPLE TE BLD COUNT W/DIF F eosinophils, absolute count 0.10 x10'3 /uL 0.02-0 .53 Not Available [facility] (Lab) [address] [place], [address], 06/16/2022 17:03:00 06/17/19 23 06/16/2022 CBC/C OMPLE TE BLD COUNT W/DIF F basophils, absolute count 0.06 x10'3 /uL 0.01-0 .08 Not Available [facility] (Lab) [address] [place], [address], 06/16/2022 17:03:00 06/17/19 23 06/16/2022 CBC/C OMPLE TE BLD COUNT W/DIF F immature granulocytes ,absolute 0.04 x10'3 /uL 0.00-0 .05 Not Available [facility] (Lab) [address] [place], [address], 06/16/2022 17:03:00 06/17/19 23 06/16/2022 CBC/C OMPLE TE BLD COUNT W/DIF F nucleated red blood cells 0.0 % -0 Not Available [facility] (Lab) [address] [place], [address], 06/16/2022 17:03:00 06/17/19 23 06/16/2022 CBC/C OMPLE TE BLD COUNT W/DIF F NRBC# 0.00 x10'3 /uL Not Available [facility] (Lab) [address] [place], [address], 06/16/2022 17:03:00 06/17/19 23 06/16/2022 COMPR EHENS MICHAEL METAB OLIC PANEL sodium 136 mmol/ L 137-14 5 low Not Available [facility] (Lab) [address] [place], [address], 06/16/2022 19:09:58 06/17/19 23 06/16/2022 COMPR EHENS MICHAEL METAB OLIC PANEL potassium 4.1 mmol/ L 3.5-5. 1 Not Available [facility] (Lab) [address] [place], [address], 06/16/2022 19:09:58 06/17/19 23 06/16/2022 COMPR EHENS MICHAEL METAB OLIC PANEL chloride 101 mmol/ L 98-107 Not Available [facility] (Lab) [address] [place], [address], 06/16/2022 19:09:58 06/17/19 23 06/16/2022 COMPR EHENS MICHAEL METAB OLIC PANEL carbon dioxide 26 mmol/ L 22-30 Not Available [facility] (Lab) [address] [place], [address], 06/16/2022 19:09:58 06/17/19 23 06/16/2022 COMPR EHENS MICHAEL METAB OLIC PANEL anion gap 13.1 mmol/ L 14-22 low Not Available [facility] (Lab) [address] [place], [address], 06/16/2022 19:09:58 06/17/19 23 06/16/2022 COMPR EHENS MICHAEL METAB OLIC PANEL glucose 82 mg/dL 70-99 Not Available [facility] (Lab) [address] [place], [address], 06/16/2022 19:09:58 06/17/19 23 06/16/2022 COMPR EHENS MICHAEL METAB OLIC PANEL BUN 7 mg/dL 8-19 low Not Available [facility] (Lab) [address] [facility] [place], [address], 06/16/2022 19:09:58 06/17/19 23 06/16/2022 COMPR EHENS MICHAEL METAB OLIC PANEL creatinine 0.88 mg/dL 0.66-1 .25 Not Available [facility] (Lab) [address] [place], [address], 06/16/2022 19:09:58 06/17/19 23 06/16/2022 COMPR EHENS MICHAEL METAB OLIC PANEL GFR >60 Refer ence Range : [place] ge GFR Healt hy Adult : >60 mL/mi n/1.7 3 m2 Chron ic Kidne y Disea se: 15-60 mL/mi n/1.7 3 m2 Kidne y Failu re: <15/m L/min /1.73 m2 www.n iddk. nih.g ov The MDRD study equat ion has not been valid ated in child charles <18 years of age; pregn ant women ; the elder ly >85 years of age; or in some racia l or ethni c subgr oups, such as [facility] nics. Outsi de the valid ated skye eters , estim ated GFR is less accur ate, requi ring clini rubén judgm ent on a case- by-ca se basis . Clini rubén inter preta tion for other races and ages must be made by the clini dre. The MDRD study equat ion has not been valid ated for the evalu ation of serum creat inine relat ed to nutri [place] statu s or medic ation usage . For perso ns <18 years of age, a pedia tric GFR calcu lator is avail able on the F websi te: https ://carolina w.malgorzata velasquez.o rg/pr ofess ional s/kdo qi/gf r_cal culat or Not Available [facility] (Lab) [address] [place], [address], 06/16/2022 19:09:58 06/17/19 23 06/16/2022 COMPR EHENS MICHAEL METAB OLIC PANEL alkaline phosphatase 49 U/L 38-126 Not Available [facility] (Lab) [address] [place], [address], 06/16/2022 19:09:58 06/17/19 23 06/16/2022 COMPR EHENS MICHAEL METAB OLIC PANEL alanine aminotransfe rase 13 U/L 0-35 Not Available [facility] (Lab) [address] [place], [address], 06/16/2022 19:09:58 06/17/19 23 06/16/2022 COMPR EHENS MICHAEL METAB OLIC PANEL aspartate aminotransfe rase 20 U/L 15-37 Not Available [facility] (Lab) [address] [place], [address], 06/16/2022 19:09:58 06/17/19 23 06/16/2022 COMPR EHENS MICHAEL METAB OLIC PANEL bilirubin, total 0.30 mg/dL 0.20-1 .30 Not Available [facility] (Lab) [address] [place], [address], 06/16/2022 19:09:58 06/17/19 23 06/16/2022 COMPR EHENS MICHAEL METAB OLIC PANEL calcium 9.0 mg/dL 8.4-10 .2 Not Available [facility] (Lab) [address] [place], [address], 06/16/2022 19:09:58 06/17/19 23 06/16/2022 COMPR EHENS MICHAEL METAB OLIC PANEL total protein 7.4 g/dL 6.3-8. 2 Not Available [facility] (Lab) [address] [place], [address], 06/16/2022 19:09:58 06/17/19 23 06/16/2022 COMPR EHENS MICHAEL METAB OLIC PANEL albumin 4.0 g/dL 3.0-4. 4 Not Available [facility] (Lab) [address] [place], [address], 06/16/2022 19:09:58 06/17/19 23 06/16/2022 COMPR EHENS MICHAEL METAB OLIC PANEL globulin 3.4 g/dL 2.6-4. 2 Not Available [facility] (Lab) [address] [place], [address], 06/16/2022 19:09:58 06/17/19 23 06/16/2022 COMPR EHENS MICHAEL METAB OLIC PANEL A/G ratio 1.2 ratio 1.0-2. 0 Not Available [facility] (Lab) [address] [place], [address], 06/16/2022 19:09:58 06/17/19 23 06/16/2022 LIPID PANEL cholesterol 178 mg/dL 140-19 9 NIH LALIT NSUS RECOM MENDA TION FOR HELEN STERO L: ADULT CHILD LOW RISK: <200 <170 BORDE RLINE : <200- 239 ----- HIGH RISK: >240 >200 Not Available [facility] (Lab) [address] [place], [address], 06/16/2022 19:10:03 06/17/19 23 06/16/2022 LIPID PANEL triglyceride s 71 mg/dL 0-150 NIH LALIT NSUS REPOR T RECOM MENDA TION FOR TRIGL YCERI CHEIKH: ADULT CHILD LOW RISK: <150 ----- BODER LINE: 150-1 99 ----- HIGH RISK: >200 ----- Not Available [facility] (Lab) [address] [place], [address], 06/16/2022 19:10:03 04/03/20 23 06/16/2022 LIPID PANEL HDL cholesterol 63 mg/dL 40- Not Available [facility] (Lab) [address] [place], [address], 06/16/2022 19:10:03 06/17/19 23 06/16/2022 LIPID PANEL LDL cholesterol, calculated 101 mg/dL 0-130 NIH LALIT NSUS REPOR T RECOM MENDA TIONS FOR LDL: ADULT CHILD LOW RISK <130 <110 (OPTI MAL LDL) <100 ----- BORDE RLINE : 130-1 59 ----- HIGH RISK: >160 >130 A TRIGL YCERI DE RESUL T >400 INVAL IDATE S THE CALCU LATIO N FOR LDL FRACT IONAT ION - THE LDL RESUL T WILL NOT BE REPOR PATSY. Not Available [facility] (Lab) [address] [place], [address], 06/16/2022 19:10:03 06/17/19 23 06/16/2022 VITAM IN D 25-HY DROXY [id number] 68.3 NG/mL 30-100 Vitam in D Statu s: Defic ient: <20 ng/mL Insuf ficie nt: 20-29 ng/mL Suffi cient : 30-10 0 ng/mL Not Available [facility] (Lab) [address] [place], [address], 06/16/2022 19:23:07 06/17/1906/16/2022 TSH W/REF SEGUNDO FT4 TSH with reflex free T4 2.010 uIU/m L 0.465- 4.680 Not Available [facility] (Lab) [address] [place], [address], 06/16/2022 19:23:22 02/11/20 23 02/10/2023 CBC/C OMPLE TE BLD COUNT W/DIF F white blood cells 12.6 x10'3 /uL 4.2-10 .8 high Not Available [facility] (Lab) [address] [place], [address], 02/10/2023 17:09:48 02/11/20 23 02/10/2023 CBC/C OMPLE TE BLD COUNT W/DIF F red blood cells 4.13 x10'6 /uL 3.80-5 .20 Not Available [facility] (Lab) [address] [place], [address], 02/10/2023 17:09:48 02/11/20 23 02/10/2023 CBC/C OMPLE TE BLD COUNT W/DIF F hemoglobin 13.3 g/dL 12.0-1 5.6 Not Available [facility] (Lab) [address] [place], [address], 02/10/2023 17:09:48 02/11/20 23 02/10/2023 CBC/C OMPLE TE BLD COUNT W/DIF F hematocrit 40.9 % 35.7-4 5.7 Not Available [facility] (Lab) [address] [place], [address], 02/10/2023 17:09:48 02/11/20 23 02/10/2023 CBC/C OMPLE TE BLD COUNT W/DIF F mean red cell volume 99.0 fL 82.0-9 9.0 Not Available [facility] (Lab) [address] [place], [address], 02/10/2023 17:09:48 02/11/20 23 02/10/2023 CBC/C OMPLE TE BLD COUNT W/DIF F mean red cell hemoglobin 32.2 pg 27.0-3 3.0 Not Available [facility] (Lab) [address] [place], [address], 02/10/2023 17:09:48 02/11/20 23 02/10/2023 CBC/C OMPLE TE BLD COUNT W/DIF F mean RBC HGB concentratio n 32.5 g/dL 31.0-3 6.0 Not Available [facility] (Lab) [address] [place], [address], 02/10/2023 17:09:48 02/11/20 23 02/10/2023 CBC/C OMPLE TE BLD COUNT W/DIF F red cell distribution width 13.2 % 11.8-1 5.5 Not Available [facility] (Lab) [address] [place], [address], 02/10/2023 17:09:48 02/11/20 23 02/10/2023 CBC/C OMPLE TE BLD COUNT W/DIF F platelets 437 x10'3 /uL 150-40 0 high Not Available [facility] (Lab) [address] [place], [address], 02/10/2023 17:09:48 02/11/20 23 02/10/2023 CBC/C OMPLE TE BLD COUNT W/DIF F mean platelet volume 9.4 fL 9.0-12 .4 Not Available [facility] (Lab) [address] [place], [address], 02/10/2023 17:09:48 02/11/20 23 02/10/2023 CBC/C OMPLE TE BLD COUNT W/DIF F neutrophils 69.3 % 39.0-7 2.0 Not Available [facility] (Lab) [address] [place], [address], 02/10/2023 17:09:48 02/11/20 23 02/10/2023 CBC/C OMPLE TE BLD COUNT W/DIF F lymphocytes 23.2 % 16.0-4 7.0 Not Available [facility] (Lab) [address] [place], [address], 02/10/2023 17:09:48 02/11/20 23 02/10/2023 CBC/C OMPLE TE BLD COUNT W/DIF F monocytes 5.9 % 5.0-12 .0 Not Available [facility] (Lab) [address] [place], [address], 02/10/2023 17:09:48 02/11/20 23 02/10/2023 CBC/C OMPLE TE BLD COUNT W/DIF F eosinophils 0.8 % 1.0-7. 0 low Not Available [facility] (Lab) [address] [place], [address], 02/10/2023 17:09:48 02/11/20 23 02/10/2023 CBC/C OMPLE TE BLD COUNT W/DIF F basophils 0.5 % 0.0-2. 0 Not Available [facility] (Lab) [address] [place], [address], 02/10/2023 17:09:48 02/11/20 23 02/10/2023 CBC/C OMPLE TE BLD COUNT W/DIF F immature granulocytes 0.3 % 0.00-0 .50 Not Available [facility] (Lab) [address] [place], [address], 02/10/2023 17:09:48 02/11/20 23 02/10/2023 CBC/C OMPLE TE BLD COUNT W/DIF F neutrophils, absolute count 8.74 x10'3 /uL 1.5-8. 0 high Not Available [facility] (Lab) [address] [place], [address], 02/10/2023 17:09:48 02/11/20 23 02/10/2023 CBC/C OMPLE TE BLD COUNT W/DIF F lymphocytes, absolute count 2.92 x10'3 /uL 1.07-3 .43 Not Available [facility] (Lab) [address] [place], [address], 02/10/2023 17:09:48 02/11/20 23 02/10/2023 CBC/C OMPLE TE BLD COUNT W/DIF F monocytes, absolute count 0.75 x10'3 /uL 0.29-0 .99 Not Available [facility] (Lab) [address] [place], [address], 02/10/2023 17:09:48 02/11/20 23 02/10/2023 CBC/C OMPLE TE BLD COUNT W/DIF F eosinophils, absolute count 0.10 x10'3 /uL 0.02-0 .53 Not Available [facility] (Lab) [address] [place], [address], 02/10/2023 17:09:48 02/11/20 23 02/10/2023 CBC/C OMPLE TE BLD COUNT W/DIF F basophils, absolute count 0.06 x10'3 /uL 0.01-0 .08 Not Available [facility] (Lab) [address] [place], [address], 02/10/2023 17:09:48 02/11/20 23 02/10/2023 CBC/C OMPLE TE BLD COUNT W/DIF F immature granulocytes ,absolute 0.04 x10'3 /uL 0.00-0 .05 Not Available [facility] (Lab) [address] [place], [address], 02/10/2023 17:09:48 02/11/20 23 02/10/2023 CBC/C OMPLE TE BLD COUNT W/DIF F nucleated red blood cells 0.0 % -0 Not Available [facility] (Lab) [address] [place], [address], 02/10/2023 17:09:48 02/11/20 23 02/10/2023 CBC/C OMPLE TE BLD COUNT W/DIF F NRBC# 0.00 x10'3 /uL Not Available [facility] (Lab) [address] [place], [address], 02/10/2023 17:09:48 02/11/2002/10/2023 VITAM IN D 25-HY DROXY [id number] 84.7 NG/mL 30-100 Vitam in D Statu s: Defic ient: <20 ng/mL Insuf ficie nt: 20-29 ng/mL Suffi cient : 30-10 0 ng/mL Not Available [facility] (Lab) [address] [place], [address], 02/10/2023 17:17:24 02/11/20 23 02/10/2023 COMPR EHENS MICHAEL METAB OLIC PANEL sodium 134 mmol/ L 137-14 5 low Not Available [facility] (Lab) [address] [place], [address], 02/10/2023 17:19:48 02/11/20 23 02/10/2023 COMPR EHENS MICHAEL METAB OLIC PANEL potassium 4.4 mmol/ L 3.5-5. 1 Not Available [facility] (Lab) [address] [place], [address], 02/10/2023 17:19:48 02/11/20 23 02/10/2023 COMPR EHENS MICHAEL METAB OLIC PANEL chloride 98 mmol/ L 98-107 Not Available [facility] (Lab) [address] [place], [address], 02/10/2023 17:19:48 02/11/20 23 02/10/2023 COMPR EHENS MICHAEL METAB OLIC PANEL carbon dioxide 28 mmol/ L 22-30 Not Available [facility] (Lab) [address] [place], [address], 02/10/2023 17:19:48 02/11/20 23 02/10/2023 COMPR EHENS MICHAEL METAB OLIC PANEL anion gap 12.4 mmol/ L 14-22 low Not Available [facility] (Lab) [address] [place], [address], 02/10/2023 17:19:48 02/11/20 23 02/10/2023 COMPR EHENS MICHAEL METAB OLIC PANEL glucose 93 mg/dL 70-99 Not Available [facility] (Lab) [address] [place], [address], 02/10/2023 17:19:48 02/11/20 23 02/10/2023 COMPR EHENS MICHAEL METAB OLIC PANEL BUN 8 mg/dL 8-19 Not Available [facility] (Lab) [address] [place], [address], 02/10/2023 17:19:48 02/11/20 23 02/10/2023 COMPR EHENS MICHAEL METAB OLIC PANEL creatinine 0.83 mg/dL 0.66-1 .25 Not Available [facility] (Lab) [address] [place], [address], 02/10/2023 17:19:48 02/11/2002/10/2023 COMPR EHENS MICHAEL METAB OLIC PANEL GFR >60 Refer ence Range : [place] ge GFR Healt hy Adult : >60 mL/mi n/1.7 3 m2 Chron ic Kidne y Disea se: 15-60 mL/mi n/1.7 3 m2 Kidne y Failu re: <15/m L/min /1.73 m2 [email or web address] The MDRD study equat ion has not been valid ated in child charles <18 years of age; pregn ant women ; the elder ly >85 years of age; or in some racia l or ethni c subgr oups, such as Hispa nics. Outsi de the valid ated skye eters , estim ated GFR is less accur ate, requi ring clini rubén judgm ent on a case- by-ca se basis . Clini rubén inter preta tion for other races and ages must be made by the clini dre. The MDRD study equat ion has not been valid ated for the evalu ation of serum creat inine relat ed to nutri [place] statu s or medic ation usage . For perso ns <18 years of age, a pedia tric GFR calcu lator is avail able on the F websi te: [email or web address] :[email or web address] culat or Not Available [facility] (Lab) [address] [place], [address], 02/10/2023 17:19:48 02/11/20 23 02/10/2023 COMPR EHENS MICHAEL METAB OLIC PANEL alkaline phosphatase 52 U/L 38-126 Not Available [facility] (Lab) [address] [place], [address], 02/10/2023 17:19:48 02/11/20 23 02/10/2023 COMPR EHENS MICHAEL METAB OLIC PANEL alanine aminotransfe rase 12 U/L 0-35 Not Available [facility] (Lab) [address] [place], [address], 02/10/2023 17:19:48 02/11/20 23 02/10/2023 COMPR EHENS MICHAEL METAB OLIC PANEL aspartate aminotransfe rase 21 U/L 15-37 Not Available [facility] (Lab) [address] [place], [address], 02/10/2023 17:19:48 02/11/20 23 02/10/2023 COMPR EHENS MICHAEL METAB OLIC PANEL bilirubin, total 0.40 mg/dL 0.20-1 .30 Not Available [facility] (Lab) [address] [place], [address], 02/10/2023 17:19:48 02/11/20 23 02/10/2023 COMPR EHENS MICHAEL METAB OLIC PANEL calcium 9.8 mg/dL 8.4-10 .2 Not Available [facility] (Lab) [address] [place], [address], 02/10/2023 17:19:48 02/11/20 23 02/10/2023 COMPR EHENS MICHAEL METAB OLIC PANEL total protein 8.1 g/dL 6.3-8. 2 Not Available [facility] (Lab) [address] [place], [address], 02/10/2023 17:19:48 02/11/20 23 02/10/2023 COMPR EHENS MICHAEL METAB OLIC PANEL albumin 4.2 g/dL 3.0-4. 4 Not Available [facility] (Lab) [address] [place], [address], 02/10/2023 17:19:48 02/11/20 23 02/10/2023 COMPR EHENS MICHAEL METAB OLIC PANEL globulin 3.9 g/dL 2.6-4. 2 Not Available [facility] (Lab) [address] [place], [address], 02/10/2023 17:19:48 02/11/20 23 02/10/2023 COMPR EHENS MICHAEL METAB OLIC PANEL A/G ratio 1.1 ratio 1.0-2. 0 Not Available [facility] (Lab) [address] [place], [address], 02/10/2023 17:19:48 02/11/20 23 02/10/2023 LIPID PANEL cholesterol 199 mg/dL 140-19 9 NIH LALIT NSUS RECOM MENDA TION FOR HELEN STERO L: ADULT CHILD LOW RISK: <200 <170 BORDE RLINE : <200- 239 ----- HIGH RISK: >240 >200 Not Available [facility] (Lab) [address] [place], [address], 02/10/2023 17:19:58 02/11/20 23 02/10/2023 LIPID PANEL triglyceride s 95 mg/dL 0-150 NIH LALIT NSUS REPOR T RECOM MENDA TION FOR TRIGL YCERI CHEIKH: ADULT CHILD LOW RISK: <150 ----- BODER LINE: 150-1 99 ----- HIGH RISK: >200 ----- Not Available [facility] (Lab) [address] [facility] [place], [address], 02/10/2023 17:19:58 02/11/20 23 02/10/2023 LIPID PANEL HDL cholesterol 69 mg/dL 40- Not Available [facility] (Lab) [address] [facility] [place], [address], 02/10/2023 17:19:58 02/11/20 23 02/10/2023 LIPID PANEL LDL cholesterol, calculated 111 mg/dL 0-130 NIH LALIT NSUS REPOR T RECOM MENDA TIONS FOR LDL: ADULT CHILD LOW RISK <130 <110 (OPTI MAL LDL) <100 ----- MARILOU RLINE : 130-1 59 ----- HIGH RISK: >160 >130 A TRIGL YCERI DE RESUL T >400 INVAL IDATE S THE CALCU LATIO N FOR LDL FRACT IONAT ION - THE LDL RESUL T WILL NOT BE REPOR PATSY. Not Available [facility] (Lab) [address] [place], [address], 02/10/2023 17:19:58 03/12/20 23 03/12/2023 CBC/C OMPLE TE BLD COUNT W/DIF F white blood cells 14.0 x10'3 /uL 4.2-10 .8 high Not Available [facility] (Lab) [address] [place], [address], 03/12/2023 15:55:00 03/12/20 23 03/12/2023 CBC/C OMPLE TE BLD COUNT W/DIF F red blood cells 4.07 x10'6 /uL 3.80-5 .20 Not Available [facility] (Lab) [address] [place], [address], 03/12/2023 15:55:00 03/12/20 23 03/12/2023 CBC/C OMPLE TE BLD COUNT W/DIF F hemoglobin 13.2 g/dL 12.0-1 5.6 Not Available [facility] (Lab) [address] [place], [address], 03/12/2023 15:55:00 03/12/20 23 03/12/2023 CBC/C OMPLE TE BLD COUNT W/DIF F hematocrit 40.5 % 35.7-4 5.7 Not Available [facility] (Lab) [address] [place], [address], 03/12/2023 15:55:00 03/12/20 23 03/12/2023 CBC/C OMPLE TE BLD COUNT W/DIF F mean red cell volume 99.5 fL 82.0-9 9.0 high Not Available [facility] (Lab) [address] [place], [address], 03/12/2023 15:55:00 03/12/20 23 03/12/2023 CBC/C OMPLE TE BLD COUNT W/DIF F mean red cell hemoglobin 32.4 pg 27.0-3 3.0 Not Available [facility] (Lab) [address] [place], [address], 03/12/2023 15:55:00 03/12/20 23 03/12/2023 CBC/C OMPLE TE BLD COUNT W/DIF F mean RBC HGB concentratio n 32.6 g/dL 31.0-3 6.0 Not Available [facility] (Lab) [address] [place], [address], 03/12/2023 15:55:00 03/12/20 23 03/12/2023 CBC/C OMPLE TE BLD COUNT W/DIF F red cell distribution width 13.5 % 11.8-1 5.5 Not Available [facility] (Lab) [address] [place], [address], 03/12/2023 15:55:00 03/12/20 23 03/12/2023 CBC/C OMPLE TE BLD COUNT W/DIF F platelets 415 x10'3 /uL 150-40 0 high Not Available [facility] (Lab) [address] [place], [address], 03/12/2023 15:55:00 03/12/20 23 03/12/2023 CBC/C OMPLE TE BLD COUNT W/DIF F mean platelet volume 9.5 fL 9.0-12 .4 Not Available [facility] (Lab) [address] [place], [address], 03/12/2023 15:55:00 03/12/20 23 03/12/2023 CBC/C OMPLE TE BLD COUNT W/DIF F neutrophils 72.6 % 39.0-7 2.0 high Not Available [facility] (Lab) [address] [place], [address], 03/12/2023 15:55:00 03/12/20 23 03/12/2023 CBC/C OMPLE TE BLD COUNT W/DIF F lymphocytes 19.1 % 16.0-4 7.0 Not Available [facility] (Lab) [address] [place], [address], 03/12/2023 15:55:00 03/12/20 23 03/12/2023 CBC/C OMPLE TE BLD COUNT W/DIF F monocytes 6.9 % 5.0-12 .0 Not Available [facility] (Lab) [address] [place], [address], 03/12/2023 15:55:00 03/12/20 23 03/12/2023 CBC/C OMPLE TE BLD COUNT W/DIF F eosinophils 0.6 % 1.0-7. 0 low Not Available [facility] (Lab) [address] [place], [address], 03/12/2023 15:55:00 03/12/20 23 03/12/2023 CBC/C OMPLE TE BLD COUNT W/DIF F basophils 0.4 % 0.0-2. 0 Not Available [facility] (Lab) [address] [place], [address], 03/12/2023 15:55:00 03/12/20 23 03/12/2023 CBC/C OMPLE TE BLD COUNT W/DIF F immature granulocytes 0.4 % 0.00-0 .50 Not Available [facility] (Lab) [address] [place], [address], 03/12/2023 15:55:00 03/12/20 23 03/12/2023 CBC/C OMPLE TE BLD COUNT W/DIF F neutrophils, absolute count 10.14 x10'3 /uL 1.5-8. 0 high Not Available [facility] (Lab) [address] [place], [address], 03/12/2023 15:55:00 03/12/20 23 03/12/2023 CBC/C OMPLE TE BLD COUNT W/DIF F lymphocytes, absolute count 2.67 x10'3 /uL 1.07-3 .43 Not Available [facility] (Lab) [address] [place], [address], 03/12/2023 15:55:00 03/12/20 23 03/12/2023 CBC/C OMPLE TE BLD COUNT W/DIF F monocytes, absolute count 0.97 x10'3 /uL 0.29-0 .99 Not Available [facility] (Lab) [address] [place], [address], 03/12/2023 15:55:00 03/12/20 23 03/12/2023 CBC/C OMPLE TE BLD COUNT W/DIF F eosinophils, absolute count 0.08 x10'3 /uL 0.02-0 .53 Not Available [facility] (Lab) [address] [place], [address], 03/12/2023 15:55:00 03/12/20 23 03/12/2023 CBC/C OMPLE TE BLD COUNT W/DIF F basophils, absolute count 0.05 x10'3 /uL 0.01-0 .08 Not Available [facility] (Lab) [address] [place], [address], 03/12/2023 15:55:00 03/12/20 23 03/12/2023 CBC/C OMPLE TE BLD COUNT W/DIF F immature granulocytes ,absolute 0.06 x10'3 /uL 0.00-0 .05 high Not Available [facility] (Lab) [address] [place], [address], 03/12/2023 15:55:00 03/12/20 23 03/12/2023 CBC/C OMPLE TE BLD COUNT W/DIF F nucleated red blood cells 0.0 % -0 Not Available [facility] (Lab) [address] [place], [address], 03/12/2023 15:55:00 03/12/20 23 03/12/2023 CBC/C OMPLE TE BLD COUNT W/DIF F NRBC# 0.00 x10'3 /uL Not Available [facility] (Lab) [address] [place], [address], 03/12/2023 15:55:00 09/06/19 23 09/05/2022 MAMMO , scree nithya, bilat eral No observ ation record ed. [email or web address] [facility] [address] [facility], [place], [address], 09/09/2022 10:56:10 Result Notes None recorded. Problems Name Problem SNOMED Code Status Onset Date Resolution Date Notes Provider Name and Address Organization Details Recorded Time Vitamin D deficiency 44293263 Active 2022 Not Available [facility] 04:10:23 Osteoporos is 62005800 Active 2022 Not Available [facility] 4 04:10:23 Nicotine dependence with current use 166103746 Active 2022 Not Available [facility] 4 04:10:23 Microscopi c hematuria 417340447 Active 2022 Not Available [facility] 4 04:10:23 Allergic rhinitis 37889207 Active 2022 Not Available [facility] 4 04:10:23 Sciatica 83937443 Active 2022 Not Available [facility] 4 04:10:23 Coronary atheroscle rosis 146438979 Active 2022 Not Available [facility] 4 04:10:23 Bilateral hip joint pain 0020638665431 9100 Active 2022 Not Available [facility] 4 04:10:23 Nicotine dependence 41109477 Active 2022 Not Available [facility] 4 04:10:23 Sciatica 85094550 Active 2022 Not Available [facility] 4 04:10:23 Hemorrhoid s 47318858 Active 2022 Not Available [facility] 4 04:10:23 Leukocytos is 235956316 Active 2022 Not Available [facility] 4 04:10:23 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 Not Available [facility] 4 04:10:23 Anxiety disorder 426010430 Active Not Available [facility] 4 04:10:23 Low back pain 146374719 Active 2017 Not Available [facility] 4 04:10:23 Severe chronic obstructiv e pulmonary disease 575651216 Active 2019 Not Available [facility] 4 04:10:23 Hypoxia 724153873 Active 2019 Not Available [facility] 4 04:10:23 Osteoarthr itis 426700874 Active Not Available [facility] 4 04:10:23 Bronchioli tis 3833900 Active Not Available [facility] 4 04:10:23 Hyperlipid emia 25999070 Active Not Available [facility] 4 04:10:23 Dyspnea on exertion 97242718 Active 2021 Not Available [facility] 4 04:10:23 Otitis media 59702350 Active Not Available [facility] 4 04:10:23 Thrombocyt osis 9110997 Active Not Available [facility] 4 04:10:23 Rhinitis 28939513 Active 2017 Not Available [facility] 4 04:10:23 Posterior rhinorrhea 58775109 Active 2021 Not Available [facility] 4 04:10:23 Hyponatrem ia 13888324 Active Not Available [facility] 4 04:10:23 Eczema of external auditory canal 95256559 Active 2021 Not Available [facility] 4 04:10:23 Problem Notes None recorded. Procedures Surgical History Date Name Laterality Status Provider Name and Address Organization Details Recorded Time 10/15/19 Medicare Wellness CPT Code, subsequent completed Tere Zendejas, ROOM MANAGER-C [address] [place] [address], [facility] [address], [place], [address], [facility] [employer] [facility] 10/14/2022 14:23:51 02/03/20 20 Most Recent Bone Density completed Not Available [facility] 05/14/2022 04:41:58 03/30/19 19 Date of Last Colonoscopy completed Not Available [facility] 05/14/2022 04:41:58 Breast Biopsy completed Not Available [facility] 05/14/2022 04:42:01 procedure on facial bone completed Not Available [facility] 05/14/2022 04:42:01 Imaging Results Imaging Date Name Status LastModified by Organiz [facility] Details LastModified Time 09/05/2022 MAMMO, screening, bilateral completed [email or web address] [facility] [address], [place], [address], 09/09/2022 10:56:10 Procedure Notes None recorded. Medical Equipment None Reported. Allergies Allergen ID Allergen Name Allergen Category Reaction Reaction Severity Criticality Documentation Date Start Date Code Code System Note Provider Name and Address Organization Details Recorded Time 7945 Product containin g penicilli n (product) medicatio n Not available Not available Not available 05/14/2022 89068 8001 SNOMED Not Available [facility] 3 05:03:16 7946 ibuprofen medicatio n Not available Not available Not available 05/14/2022 5640 RxNorm Not Available [facility] 3 05:03:16 7947 codeine medicatio n Not available Not available Not available 05/14/2022 2670 RxNorm Not Available [facility] 3 05:03:16 7948 aspirin medicatio n Not available Not available Not available 05/14/2022 1191 RxNorm Not Available [facility] 3 05:03:16 7949 caffeine food,medi cation Not available Not available Not available 05/14/2022 1886 RxNorm Not Available [facility] 3 05:03:16 7950 Advil medicatio n Not available Not available Not available 05/14/2022 84889 0 RxNorm pt is unsur e if she has an aller gy to this Not Available [facility] 3 05:03:16 Medications Name Sig Start Date Stop Date Status Note LastModified by Organization Details LastModified Time tetracyclin e 500 mg capsule Take 1 capsule twice a day by oral route for 6 days. active Not Available Not Available No t Available buspirone 5 mg tablet Take 1 tablet twice a day by oral route as needed. active Not Available Not Available No t Available nystatin 100,000 unit/mL oral suspension Take 5 mL PO 4 times per day x 10 days- swish for 30 seconds then swallow active Not Available Not Available No t Available clindamycin HCl 300 mg capsule active Not Available Not Available Not Available azithromyci n 250 mg tablet Take 1 dose pk by oral route for 1 day. 01/26 completed Not Available Not Available Not Available ofloxacin 0.3 % eye drops 09/17 completed Not Available Not Available Not Available tizanidine 4 mg tablet TAKE 1 TABLET BY MOUTH EVERY DAY AT BEDTIME 02/12 completed Not Available Not Available Not Available promethazin e 6.25 mg/5 mL oral syrup TAKE TWO TEASPOONF ULS BY MOUTH THREE TIMES DAILY active Not Available Not Available No t Available Claritin 10 mg tablet Take 1 tablet every day by oral route for 90 days. 2012 active Not Available Not Available Not Avai lable minocycline 100 mg capsule Take 1 capsule every day by oral route for 6 days. active Not Available Not Available No t Available fluoxetine 10 mg tablet Take 1 tablet every day by oral route. active Not Available Not Available No t Available alclometaso ne 0.05 % topical cream 10/15 completed Not Available Not Available Not Available Debrox 6.5 % ear drops INSTILL 5 DROPS INTO AFFECTED EAR(S) BY OTIC ROUTE 2 TIMES PER DAY 12/16 completed Not Available Not Available Not Available ciprofloxac in 500 mg tablet Take 1 tablet every 12 hours by oral route for 5 days. active Not Available Not Available No t Available peg-electro lyte solution 420 gram oral solution 05/14 completed Not Available Not Available Not Available hydrocortis one 2.5 % topical cream with perineal applicator APPLY THIN LAYER TOPICALLY TO THE AFFECTED AREA 2 TO 4 TIMES DAILY NEEDED active Not Available Not Available No t Available lorazepam 0.5 mg tablet Take 1 tablet twice a day by oral route in the morning&h s for 30 days. 02/12 completed Not Available Not Available Not Available benzonatate 100 mg capsule TK 1 C PO TID PRN 03/13 completed Not Available Not Available Not Available bisacodyl 10 mg rectal suppository UNW AND I 1 SUP REC UTD 05/14 completed Not Available Not Available Not Available erythromyci n 5 mg/gram (0.5 %) eye ointment DELANEY A THIN LAYER INTO THE LEFT EYE TID active Not Available Not Available No t Available montelukast 10 mg tablet TAKE 1 TABLET BY MOUTH EVERY DAY active Not Available Not Available No t Available gabapentin 100 mg capsule TAKE 1 CAPSULE BY MOUTH EVERY OTHER DAY active Not Available Not Available No t Available ergocalcife rol (vitamin D2) 1,250 mcg (50,000 unit) capsule Take 1 capsule every week by oral route as directed for 84 days. 05/15 completed Not Available Not Available Not Available Cheratussin AC 10 mg-100 mg/5 mL oral liquid Take 10 mL every 4 hours by oral route. active Not Available Not Available No t Available methylpredn isolone 4 mg tablets in a dose pack TK UTD 09/29 completed Not Available Not Available Not Available fluticasone propionate 50 mcg/actuati on nasal spray,suspe nsion SHAKE LIQUID AND USE 2 SPRAYS IN EACH NOSTRIL AT SUPPER active Not Available Not Available No t Available Ventolin HFA 90 mcg/actuati on aerosol inhaler Inhale 2 puffs every 4-6 hours by inhalatio n route as needed for 30 days. active Not Available Not Available No t Available Pneumovax-2 3 25 mcg/0.5 mL injection syringe ADM 0.5ML IM UTD 01/16 completed Not Available Not Available Not Available mirtazapine 7.5 mg tablet Take 1 tablet every day by oral route at bedtime. active Not Available Not Available No t Available acetaminoph en 500 mg effervescen t tablet Take 2 tablets every 6-8 hours by oral route. 03/28 completed Not Available Not Available Not Available Prevnar 13 (PF) 0.5 mL intramuscul ar syringe INJECT 0.5 ML IM ONCE FOR 1 DOSE 11/24 completed Not Available Not Available Not Available D3-2000 50 mcg (2,000 unit) capsule Take 1 capsule every day by oral route. 2019 active Not Available Not Available Not Avai lable Anoro Ellipta 62.5 mcg-25 mcg/actuati on powder for inhalation INHALE 1 PUFF BY MOUTH EVERY DAY DIRECTED active Not Available Not Available No t Available Fluad 65yr up(PF)45 mcg(15 mcgx3)/0.5 mL intramuscul ar syringe ADM 0.5ML IM UTD 05/29 completed Not Available Not Available Not Available Fluad 65yr up(PF)45 mcg(15 mcgx3)/0.5 mL intramuscul ar syringe ADM 0.5ML IM UTD 02/12 completed Not Available Not Available Not Available Fluarix Quad (PF) 60 mcg (15 mcg x 4)/0.5 mL IM syringe ADM 0.5ML IM UTD 01/26 completed Not Available Not Available Not Available Fluzone High-Dose Quad (PF) 240 mcg/0.7 mL IM syringe ADMINISTE R 0.7ML IN THE MUSCLE DIRECTED 01/16 completed Not Available Not Available Not Available Vitals Date Recorded Body mass index (BMI) Body height Oxygen saturation Oxygen saturation in Arterial blood by Pulse oximetry Heart rate Body temperature Body weight Systolic blood pressure Diastolic blood pressure Provider Name and Address Organization Details Last Updated DateTime 2 17.7 kg/m2 157.48 cm 91 % 91 % 102 /min 96.7 [degF] 31311.4 6 g 120 mm[Hg] 70 mm[Hg] Not Available [facility] 3 04:44:33 Date Recorded Body height Body mass index (BMI) Body weight Body temperature Heart rate Oxygen saturation Oxygen saturation in Arterial blood by Pulse oximetry Systolic blood pressure Diastolic blood pressure Provider Name and Address Organization Details Last Updated DateTime 3 157.48 cm 17 kg/m2 33416.0 9 g 97.9 [degF] 94 /min 96 % 96 % 114 mm[Hg] 72 mm[Hg] Kirsten Subramanian [place] [employer] [facility] [employer] 3 14:04:48 Date Recorded Body height Body mass index (BMI) Body weight Heart rate Oxygen saturation Oxygen saturation in Arterial blood by Pulse oximetry Systolic blood pressure Diastolic blood pressure Provider Name and Address Organization Details Last Updated DateTime 3 157.48 cm 17.4 kg/m2 64288.2 8 g 91 /min 95 % 95 % 118 mm[Hg] 72 mm[Hg] Abimbola Montesinos [employer] [facility] [employer] 3 14:20:34 Date Recorded Body height Body mass index (BMI) Body weight Body temperature Heart rate Oxygen saturation Oxygen saturation in Arterial blood by Pulse oximetry Systolic blood pressure Diastolic blood pressure Provider Name and Address Organization Details Last Updated DateTime 3 157.48 cm 16.8 kg/m2 04050.5 g 97.9 [degF] 102 /min 96 % 96 % 116 mm[Hg] 72 mm[Hg] Kirsten Subramanian [place] [employer] [employer] [facility] [employer] 3 13:57:41 Date Recorded Body height Body mass index (BMI) Body weight Body temperature Heart rate Oxygen saturation Oxygen saturation in Arterial blood by Pulse oximetry Systolic blood pressure Diastolic blood pressure Provider Name and Address Organization Details Last Updated DateTime 3 157.48 cm 16.6 kg/m2 39194.9 1 g 98.7 [degF] 104 /min 96 % 96 % 114 mm[Hg] 74 mm[Hg] EDUARDO Jordan - [facility] 3 14:31:05 Social History Question Answer Notes LastModified by Organizat ion Details LastModified Time Tobacco Smoking Status Current Some Day Smoker Not Available [facility] 05/14/2022 04:19:36 Do You Have An Advance Directive? Yes [id number] Information not available 05/14/2022 What Is Your Level Of Alcohol Consumption? None [id number].14127 [id number] Information not available 05/14/2022 Are You Blind Or Do You Have Difficulty Seeing? No MIGRATION.92105 [id number] Information not available 05/14/2022 What Is Your Level Of Caffeine Consumption? None [id number].81000 [id number] Information not available 05/14/2022 How Much Tobacco Do You Chew? None [id number].30815 [id number] Information not available 05/14/2022 In The 14 Days Before Symptom Onset, Have You Had Close Contact With A Laboratory-confi rmed COVID-19 While That Case Was Ill? No [id number].[id number] Information not available 05/14/2022 In The 14 Days Before Symptom Onset, Have You Had Close Contact With A Person Who Is Under Investigation For COVID-19 While That Person Was Ill? No [id number].[id number] Information not available 05/14/2022 Are You Deaf Or Do You Have Serious Difficulty Hearing? No MIGRATION.36647 [id number] Information not available 05/14/2022 What Type Of Diet Are You Following? REGULAR MIGRATION.29049 [id number] Information not available 05/14/2022 Which Illicit Or Recreational Drugs Have You Used? None MIGRATION.54234 [id number] Information not available 05/14/2022 Do You Or Have You Ever Used E-cigarettes Or Vape? Never Used Electronic Cigarettes MIGRATION.04685 [id number] Information not available 05/14/2022 What Is Your Occupation? Retired MIGRATION.48345 [id number] Information not available 05/14/2022 Have There Been Any Changes To Your Family Or Social Situation? No MIGRATION.21889 [id number] Information not available 05/14/2022 What Is The Fluoride Status Of Your Home? Unknown MIGRATION.61982 [id number] Information not available 05/14/2022 Do You Use Insect Repellent Routinely? No MIGRATION.25374 46610 Information not available 05/14/2022 Where Do You Live? [place] MIGRATION.97056 13914 Information not available 05/14/2022 Do You Have A Medical Power Of Marketing Sales Representative? Yes [id number].62529 [id number] Information not available 05/14/2022 What Was The Date Of Your Most Recent Tobacco Screening? 02/10/2023 [email or web address] Information not available 02/10/2023 What Is Your Relationship Status? MIGRATION.09863 [id number] Information not available 05/14/2022 Do You Use Your Seat Belt Or Car Seat Routinely? Yes MIGRATION.86605 09239 Information not available 05/14/2022 Do You Have Smoke And Carbon Monoxide Detectors In Your Home? Yes MIGRATION.96856 [id number] Information not available 05/14/2022 Are You Passively Exposed To Smoke? Yes MIGRATION.23246 [id number] Information not available 05/14/2022 Do You Or Have You Ever Used Smokeless Tobacco? Never Used Smokeless Tobacco MIGRATION.63609 [id number] Information not available 05/14/2022 Are There Any Smokers In Your House? Yes MIGRATION.10892 [id number] Information not available 05/14/2022 How Much Tobacco Do You Smoke? 1 PPD MIGRATION.60681 07761 Information not available 05/14/2022 Do You Feel Stressed (tense, Restless, Nervous, Or Anxious, Or Unable To Sleep At Night)? [id number] MIGRATION.20405 19657 Information not available 05/14/2022 Do You Use Any Illicit Or Recreational Drugs? No MIGRATION.32586 53642 Information not available 05/14/2022 Do You Use Sunscreen Routinely? No MIGRATION.68636 28597 Information not available 05/14/2022 Have You Recently Traveled Abroad? No MIGRATION.42684 76660 Information not available 05/14/2022 Do You Have Any Dietary Restrictions? No MIGRATION.70833 43764 Information not available 05/14/2022 Do You Or Have You Ever Used Any Other Forms Of Tobacco Or Nicotine? No [id number] Information not available 05/14/2022 Sex: Unknown Functional Status Question Answer Note LastModified by Organizat ion Details LastModified Time Do you have difficulty walking or climbing stairs? Yes due to hips [id number] Information not available 05/14/2022 Do you have transportation difficulties? No [id number] Information not available 05/14/2022 Are you able to walk? YESWOREST MIGRATION.[id number] Information not available 05/14/2022 Do you have difficulty doing errands alone? No [id number] Information not available 05/14/2022 Are you able to care for yourself? Yes [id number] Information not available 05/14/2022 Do you have difficulty dressing or bathing? No MIGRATION.[id number] Information not available 05/14/2022 What is your exercise level? Occasional [id number].[id number] Information not available 05/14/2022 Mental Status Question Answer Note LastModified by Organizat ion Details LastModified Time Do you have difficulty concentrating, remembering or making decisions? No [id number] Information not available 05/14/2022 Family History Relationship Description Onset Age of this Age Resolved Age Notes LastModified by Organization Details LastModified Time Mother Hyperlipidem ia [id number] Not available 05/14/2022 04:42:05 Mother Diabetes mellitus MIGRATION.772 [id number] Not available 05/14/2022 04:42:05 Mother Hypertensive disorder [id number] Not available 05/14/2022 04:42:05 Father Hypertensive disorder [id number] [id number] Not available 05/14/2022 04:42:05 Father Malignant tumor of colon MIGRATION.[id number] Not available 05/14/2022 04:42:05 Father Heart disease MIGRATION.898 [id number] Not available 05/14/2022 04:42:05 Medical History Condition Response BLINDNESS N NERVE DISEASE N RHEUMATIC FEVER N BLADDER PROBLEMS N KIDNEY STONES N MRSA N OTHER # 1 N POLIO N LUNG DISEASE/DISORDER N RADIATION / CHEMOTHERAPY N COPD Y Other # 2 N BLOOD DISEASES N EAR OR HEARING PROBLEMS N MUMPS N DEPRESSION (INCLUDING POST ) N BOWEL PROBLEMS N STROKE/TIA N ULCERS N BENIGN PROSTATIC HYPERPLASIA N MEASLES N MYOCARDIAL INFARCTION N OBESITY N GERD/NAUSEA N ANEURYSM N URINARY/BLADDER/KIDNEY PROBLEMS N CORONARY ARTERY DISEASE (CAD) N ADDICTION CONCERNS N ENDOMETRIOSIS N Impotence N USE OF BLOOD THINNERS N SKIN PROBLEMS N GASTROINTESTINAL DISORDER N PERIPHERAL VASCULAR DISEASE N MUSCLE,JOINT OR BONE PROBLEMS N GASTROINTESTINAL BLEEDING N BLOOD CLOTS N ASTHMA N CATARACTS N ERECTILE DYSFUNCTION N VARICOSITIES N GI PROBLEMS N Low Testosterone N INFERTILITY N AIDS/HIV N CHEMOTHERAPY / RADIATION N LIVER DISEASE N MALE HYPOGONADISM N HYPERTENSION N Deficiency Y TOURETTE'S N ANXIETY DISORDER Y BLOOD TRANSFUSION N ANEMIA/BLOOD DISORDER N CHRONIC EAR INFECTIONS N BRONCHITIS N TUBERCULOSIS N GLAUCOMA N FOOT PROBLEM N DIVERTICULITIS N SLEEP APNEA N CHICKENPOX N INFECTIOUS DISEASE N HEART ARRHYTHMIA N PROSTATE N INSOMNIA N HIGH CHOLESTEROL / HYPERLIPIDEMIA Y HYPERTHYROIDISM N EYE PROBLEMS N EDEMA N CHRONIC PAIN SYNDROME N HYPOTHYROIDISM N CAROTID BLOCKAGE N CONSTIPATION N BACK / NECK PROBLEMS N ATHEROSCLEROSIS N BREAST PROBLEMS N DIALYSIS N ECZEMA N OSTEOPOROSIS Y ARTHRITIS Y APPENDICITIS N DIABETES, TYPE N BAD TEETH N ENT N HEARTBURN / REFLUX N AUTISM SPECTRUM DISORDER (ASD) N HEPATITIS / LIVER DISEASE N GOUT N SLEEP DISORDER N ALZHEIMER'S DISEASE N Brain Problems N HERPES N DEMENTIA N HEADACHES/MIGRAINES N SEIZURES/EPILEPSY N VASCULAR DISEASE N PACEMAKER N Blood Disorder N DIZZINESS N HEART DISEASE/HEART PROBLEMS N KIDNEY DISEASE N MULTIPLE SCLEROSIS N CARDIAC ARRHYTHMIA N CANCER: SPECIFY N ATRIAL FIBRILLATION N Gall Stones N PULMONARY EMBOLISM N AUTOIMMUNE DISEASE N Gynecological History Statement/Question Response Date of Last Mammogram 07/01/2021 Date of Last Colonoscopy 03/30/2018 Most Recent Bone Density 02/03/2020 Obstetrics History GPAL:G 0 P 0 0 0 0 Immunizations Vaccine Type Date Status Note Provider Nam e and Address Organization Details Recorded Time Influenza, split virus, trivalent, preservative 3 completed Not Available [facility] 03/27/2023 04:10:24 Influenza, high-dose, trivalent, PF 9 completed Not Available [facility] 03/27/2023 04:10:24 Influenza, split virus, quadrivalent, preservative 9 completed Not Available [facility] 03/27/2023 04:10:23 COVID-19, mRNA, LNP-S, PF, 30 mcg/0.3 mL dose 1 completed Not Available [facility] 03/27/2023 04:10:23 Influenza, split virus, trivalent, preservative 1 completed Not Available [facility] 03/27/2023 04:10:24 COVID-19, mRNA, LNP-S, PF, 30 mcg/0.3 mL dose 1 completed Not Available [facility] 03/27/2023 04:10:23 COVID-19, mRNA, LNP-S, PF, 30 mcg/0.3 mL dose 1 completed Not Available [facility] 03/27/2023 04:10:23 Influenza, high-dose, quadrivalent, PF 0 completed Not Available [facility] 03/27/2023 04:10:23 Influenza, split virus, quadrivalent, preservative 0 completed Not Available [facility] 03/27/2023 04:10:23 pneumococcal polysaccharide PPV23 0 completed Not Available [facility] 03/27/2023 04:10:24 Pneumococcal conjugate PCV 13 9 completed Not Available [facility] 03/27/2023 04:10:24 Influenza, split virus, quadrivalent, preservative 8 completed Not Available [facility] 03/27/2023 04:10:23 influenza, unspecified formulation 7 completed Not Available [facility] 03/27/2023 04:10:24 Influenza, high-dose, trivalent, PF 6 completed Not Available [facility] 03/27/2023 04:10:24 Influenza, high-dose, quadrivalent, PF 2 completed Not Available [facility] 03/27/2023 04:10:23 Influenza, high-dose, trivalent, PF 6 completed Not Available [facility] 03/27/2023 04:10:24 Influenza, high-dose, trivalent, PF 4 completed Not Available [facility] 03/27/2023 04:10:24 Influenza, high-dose, quadrivalent, PF 3 completed EDUARDO Jordan [place] [employer] 01/05/2023 14:18:16 Past Encounters Encounter ID Performer Location Encounter Start Date Encounter Closed Date Diagnosis/Indication Diagnosis SNOMED-CT Code Diagnosis ICD10 Code Diagnosis Note [id number] [facility] Pulmonolo [facility] [place] [address] [place] [address] 09/07/2020 00:00:00 09/07/2020 16:32:12 [id number] [facility] Internal [facility] [place] [address] [place] [address] 09/14/2020 00:00:00 09/14/2020 15:44:54 [id number] [facility] [place] [address] [place] [address] 10/25/2020 00:00:00 10/25/2020 14:26:06 [id number] [facility] [place] [address] [place] [address] 01/18/2021 00:00:00 01/18/2021 15:43:37 [id number] [facility] [place] [address] [facility] [address] [place] [address] 01/25/2021 00:00:00 01/25/2021 16:04:32 [id number] [facility] [place] [address] [place] [address] 05/21/2021 00:00:00 05/21/2021 16:12:54 [id number] [facility] [place] [address] [facility] [address] [place] [address] 07/16/2021 00:00:00 07/16/2021 17:24:17 [id number] [facility] [place] [address] [place] [address] 08/16/2021 00:00:00 08/16/2021 15:05:22 [id number] [facility] [place] [address] [place] [address] Ave[address] [facility] [address] [place] [address] 12/16/2021 00:00:00 12/16/2021 15:06:13 [id number] [facility] [place] [address] [place] [address] 02/12/2022 00:00:00 02/12/2022 16:55:21 [id number] JAROD Osullivan [facility] Internal Med [place] [address] [place] [address] 06/16/2022 13:56:21 06/16/2022 14:22:35 Hyperlipidemia 56536660 E78.5 no meds, lifestyle measuresch mendy labs Vitamin D deficiency 347 71438 E55.9 on OTC supplement Severe chr onic obstructive pulmonary disease 940354690 J44.9 follows pulmonolog y- Aydee Cruz Anororefus es O2 Sciatica 26335378 M54.30 follows pain management on gabapentin Osteoporosis 95357391 M8 1.0 refuses meds, she is aware of risks of untreated osteoporos is including risk of fracture and deathweigh t bearing exercise recommende d, on OTC calcium and vitamin D3 Nicotine dependence 5629 4008 F17.200 1 min spent with patient discussing risks, cessation options. Patient encouraged to quit. Coronary atherosclerosis 548690732 I25.10 incidental finding on LDCT, she refuses cardiology referral Microscopic hematuria 19 0876589 R31.29 Follows urology- Dr. Chenqcyst oscopy was negative Bilateral hip joint pain [id number] 1877735 M25.551 M25.552 follows pain management as abovethey have recommende d injections - she declinessh e also declines PT Allergic rhinitis 370171 04 J30.9 on singulair, flonaseCal l office if any change in mood or behavior Screening mammography 24 541553 Z12.31 Hemorrhoids 83640954 K64 .9 On Anusol p.r.n. [id number] Aydee Patel, [facility] Pulmonolo gy [place] [address] [place] [address] 08/13/2022 14:01:09 08/13/2022 14:41:23 Severe chronic obstructive pulmonary disease 440126692 J44.9 PFT testing December 2018 with severe obstructio n.FEV1:FVC ratio 47%.FEV1 30% pre BD.15% improvemen t post BD.TLC 125%.DLCO decreased. Alpha1 MM normalDecl brett any repeat testingNo oxygen needed per six minute walk testing 2018Contin ue Anoro and Albuterol. Instructed on Anoro use and techniqueD iscussed indication s for Albuterol useShe is aware of reportable signs and symptomsRT C in 6 months, PRN for concerns Traction bronchiectasis 28207245 J47.[address] chestStart flutter valve - discussed use and frequencyI have re-demonst rated use today Dyspnea on exertion 6084 5006 R06.09 All labs normal except IGGsEvalua tion by immunologi st with all values but one returned to normalEnco uraged smoking cessationI ncrease activitySa turations re-checked : 94% on RA at restDeclin es repeat testing Nicotine dependence 5629 4008 Z87.891 Smoking cessation counseling and techniques reviewed at length. Literature reviewed. Avoid triggers, support groups. Distractio n techniques Greater than 3 but less than 10 minutes spent discussing cessation. Declines NRT. Discussed Rx options if needed in the future. LDCT completed 12/2021No mass or adenopathy Repeat due 12/2022 - ordered today [id number] JAROD Osullivan [facility] Internal Med [place] [address] [facility], [place] [address] [place] [address] 10/14/2022 13:48:35 10/14/2022 14:28:53 Hyperlipidemia 00182912 E78.5 no meds, lifestyle measuresch mendy labs Vitamin D deficiency 347 64698 E55.9 on OTC supplement Severe chr onic obstructive pulmonary disease 715210816 J44.9 follows pulmonolog y- Aydeeregla Cruz Anororefus es O2 Sciatica 43595091 M54.30 follows pain management on gabapentin Osteoporosis 88498095 M8 1.0 refuses meds, she is aware of risks of untreated osteoporos is including risk of fracture and deathweigh t bearing exercise recommende d, on OTC calcium and vitamin D3 Nicotine dependence 5629 4008 F17.200 1 min spent with patient discussing risks, cessation options. Patient encouraged to quit. Coronary atherosclerosis 617146812 I25.10 incidental finding on LDCT, she refuses cardiology referral Microscopic hematuria 19 3892750 R31.29 Follows urology- Dr. Chenqcyst oscopy was negative Bilateral hip joint pain 5923873846 2937818 M25.551 M25.552 follows pain management as abovethey have recommende d injections - she declinessh e also declines PT Allergic rhinitis 042936 04 J30.9 on singulair, flonaseCal l office if any change in mood or behavior Hemorrhoids 73793261 K64 .9 On Anusol p.r.n. Adult heal th examination 369492521 Z00.00 Screening for disorder 268233900 Z13.9 [id number] Tere Zendejas, [facility] Internal Med [place] [address] [facility] [address] [place] [address] 02/10/2023 14:11:50 02/10/2023 14:53:11 Hyperlipidemia 11032175 E78.5 no meds, lifestyle measuresch mendy labs Vitamin D deficiency 347 52409 E55.9 on OTC supplement Severe chr onic obstructive pulmonary disease 087415885 J44.9 follows pulmonolog y- Aydee Cruz Anororefus es O2 Sciatica 49612768 M54.30 follows pain management on gabapentin Osteoporosis 84633203 M8 1.0 refuses meds, she is aware of risks of untreated osteoporos is including risk of fracture and deathweigh t bearing exercise recommende d, on OTC calcium and vitamin D3 Nicotine dependence 5629 4008 F17.200 1 min spent with patient discussing risks, cessation options. Patient encouraged to quit. Coronary atherosclerosis 623321485 I25.10 incidental finding on LDCT, she refuses cardiology referral Microscopic hematuria 19 1452259 R31.29 Follows urology- Dr. Chenqcyst oscopy was negative Bilateral hip joint pain 3118814888 3240865 M25.551 M25.552 follows pain management as abovethey have recommende d injections - she declinessh e also declines PT Allergic rhinitis 263664 04 J30.9 on singulair, flonaseCal l office if any change in mood or behavior Hemorrhoids 09111435 K64 .9 On Anusol p.r.n. Renewal of prescription 950459480 Z76.0 Health Concerns Section Related Observation LastModified by Organization Detai ls LastModified Time None Recorded Concern Status LastModified by Organization Details LastModified Time None Recorded Advance Directives Directive Y: Payers Encounter Date Sequence Insurance Name Policy Number Policy Paul Covered Member ID Paul Member ID Guarantor Name 06/16/2022 1 [place] Glendy Roblero [id number] Glendy Roblero 06/16/2022 2 [place] [id number] Glendy Roblero [id number] Glendy Roblero 08/13/2022 1 [place]y Roblero [id number] Glendy Roblero 08/13/2022 2 [place] [id number] Glendy Roblero [id number] Glendy Roblero 10/14/2022 1 [place] Glendy Roblero [id number] Glendy Roblero 10/14/2022 2 [place] [id number] Glendy Roblero [id number] Glendy Roblero 02/10/2023 1 [place] Glendy Roblero [id number] Glendy Roblero 02/10/2023 2 [place] [id number] Glendy Roblero [id number] Glendy Roblero Notes Date Note Type Note Provider Name and Address Organization Details Recorded Time 08/13/2022 text/html Glendy presents to day to follow up on COPD, dyspnea, cough, nicotine dependenceNo exacerbations in > 2 years requiring steroids or antibiotics.Continu es to have anxiety R/T her personal lifeStable on Anoro Ellipta, no rescue inhaler useShe feels her hip pain limits her, not her breathing.Continues to sleep well and continues to decline any re-testing for nocturnal oxygenNo hemoptysis or chest painDenies GERD and sinus congestionContinues to smoke, she has tried to quit but just does not want to.Has not felt like she has had decline in he last 6 months. Aydee Patel, [facility]- [address] [facility], [place], [address], [place] [facility] [facility] 08/13/2022 16:09:58 10/14/2022 text/html Glendy presents to [facility] for follow up. She is also due for Medicare annual wellness visit. She reports she has been having more hip pain. She tried to come off her gabapentin but was having more pain with that. She is back on to the gabapentin. She just saw Pain Management again last week. She reports the pain is better now that she is back on the gabapentin. She continues to follow pulmonology for her COPD. She has been breathing at baseline even with the hot weather. She has been staying inside in the air conditioning. She continues to refuse medications for osteoporosis. She is taking OTC multivitamin, calcium, and vitamin-D. JAROD Osullivan [address] [facility], [facility] [address], [place], [address], [facility] [employer] [facility] [employer] 10/14/2022 15:30:54 02/10/2023 text/html Glendy presents to [facility] for follow-up. She has been following Aydee Patel for pulm, she is planning to transfer her care to her at her new location. For now, she needs a refill on her Anoro until she can get in for a new patient appointment. She reports the COPD is well controlled on the Anoro. She reports allergies are well controlled on the montelukast. She continues to follow with pain management for the bilateral hip pain. She reports pain is well controlled on the gabapentin from them. She does continue to smoke. Is not interested in cessation at this time. JAROD Osullivan [address] [facility] [address], [place], [address], [facility] [employer] [facility] [employer] [facility] 02/10/2023 15:24:12 OBGyn Episode No OBEpisode recorded.
--- OUTSIDE RECORDS SUMMARY | 2024-07-01 13:34 | XMS_ITS | Clinical Summary ---
Author Organization [facility] Cipriano mayen Felicitymayiemilia Address [address] [place] [address] Care Team Providers Care Car Knocker Name Role Phone Unavailable Primary Care Provider Unavailabl e Allergies Active Allergy Reactions Criticality Noted Date Comments Aspirin Unknown 04/15/2023 Codeine Unknown 04/15/2023 Ibuprofen (Bulk) Unknown 04/15/2023 Penicillins Swelling Low 04/29/2023 Medications umeclidinium-vi lanteroL (Anoro Ellipta) 62.5-25 mcg/actuation Disk with Device Take by inhalation. Active montelukast (SINGULAIR) 10 mg tablet Take 10 mg by mouth daily at bedtime. Active gabapentin (NEURONTIN) 100 mg capsule Take 100 mg by mouth every other day. Active Cholecalciferol , Vitamin D3, 50 mcg (2,000 unit) Capsule Take 50 mcg by mouth. Active fluticasone propionate (FLONASE) 50 mcg/spray [place], Suspension nasal inhaler Administer 2 Sprays in each nostril daily. Active Active Problems No known active problems Encounters Date Type Department Care Team Description 05/04/2024 External Device Data [facility] ABSTRACTION Provider, Abstract 04/13/2024 External Device Data [facility] ABSTRACTION Provider, Abstract 04/07/2024 External Device Data [facility] ABSTRACTION Provider, Abstract from Last 3 Months Family History Medical History Relation Name Comments No Known Problems Daughter Colon Cancer Father Diabetes Mother Hypertension Mother No Known Problems Son Relation Name Status Comments Daughter Alive Father Mother Son Alive Social History Tobacco Use Types Packs/Day Years Used Date Smoking Tobacco: Every Day Cigarettes 1.5 25 Tobacco Cessation:Ready to Q uit: Not Asked; Counseling Given: Not Answered Comments Unknown Sex and Gender Information Value Date Recorded Sex Assigned at Not on file Legal Sex Female 11:50 AM [employer] Gender Identity Not on file Sexual Orientation Not on file Last Filed Vital Signs Vital Sign Reading Time Taken Comments Blood Pressure 115/85 12/30/2023 1:39 PM CDT Pulse 92 12/30/2023 1:39 PM CDT Temperature 36.7 C (98 F) 12/30/2023 1:39 PM CDT Respiratory Rate 16 12/30/2023 1:39 PM CDT Oxygen Saturation 91% 12/30/2023 1:39 PM CDT Inhaled Oxygen Concentration - - Weight 38.1 kg (84 lb) 12/30/2023 1:39 PM CDT Height 154.9 cm (5' 1 ) 04/15/2023 3:03 PM [employer] Body Mass Index 15.87 04/15/2023 3:03 PM [employer] Plan of Treatment Upcoming Encounters Date Type Department Care Team (Late st Contact Info) Description 08/15/2024 2:45 PM CDT Office Visit [facility] Oncology and Hematology [facility] [address] [facility] [address] [place] [address] Shaun Barlow MD [address] [facility] [address] [place] [address] Health Maintenance Due Date Last Done Comments DTAP/TDAP/TD VACCINES (1 - Tdap) 1964 Traditional Medicare (ACO) A nnual Wellness Visit 1964 Lung Cancer Screening 1996 ZOSTER VACCINE (1 of 2) 1996 RSV VACCINE (60+ or ) (1 - 1-dose 75+ series) 2021 INFLUENZA VACCINE (#1) 2023 3, 12/16/2021, 12/16/2020, Additional history exists OSTEOPOROSIS SCREENING 02/02/2025 02/03/2020 PNEUMOCOCCAL VACCINE 50+ YEARS Completed 11/17/2019 , 11/02/2018 Insurance MEDICARE PART A AND B [facility] SUPP
--- OUTSIDE RECORDS SUMMARY | 2024-07-01 13:34 | XMS_ITS | Clinical Summary ---
Author Organization [facility] Care Team Providers Care Aircraft Cabin Cleaner Name Role Phone Unavailable Primary Care Provider Unavailabl e Social History Tobacco Use Types Packs/Day Years Used Date Smoking Tobacco: Never Assessed Comments Unknown Sex and Gender Information Value Date Recorded Sex Assigned at Not on file Legal Sex Female 9:23 PM CDT Gender Identity Not on file Sexual Orientation Not on file Plan of Treatment Not on file
== END 2024-07-01 13:28 | disposition home or self-care (01) ==
PROVIDERS: PCP Physician Assistant; Visit Provider Internal Medicine Hematology & Oncology
DX: Z12.2 Encounter for screening for malignant neoplasm of respiratory organs (principal); Z87.891 Personal history of nicotine dependence
CPT/HCPCS: 71271

== ENCOUNTER 2024-07-28 07:36 | Outpatient (CLI) | payer MEDICARE, SELFPAY ==
--- NOTE | ~2024-07-28 | CT_ITS ---
CT of the Abdomen and Pelvis: Indication: Intentional weight loss Technique: 2.5 mm axial scans were obtained through the abdomen and pelvis following intravenous adm inistration of 100 cc of Omnipaque 350. Dose reduction technique was used on this scan by utilizing a utomated exposure control and iterative reconstruction technique. The dose-length product (DLP) was 1 39.95 mGy-cm. Findings: Scans through the lung bases there is a peripheral chronic interstitial change in the righ t lower lobe with probable minimal bronchiolectasis in the right lower lobe.. The liver, spleen, pancreas, gallbladder, adrenals and kidneys are within normal limits. There are at herosclerotic calcifications of the aorta. No lymphadenopathy. No bowel obstruction or bowel wall thickening. There is no evidence to suggest acute appendicitis. Images through the pelvis were performed. Urinary bladder unremarkable. No pelvic mass seen. No ascit es. Impression: No acute abnormalities seen. Probable chronic changes at the lung bases, as detailed above. Reviewed, dictated and finalized at location . Impression: No acute abnormalities seen. Probable chronic changes at the lung bases, as detailed above.
--- OUTSIDE RECORDS SUMMARY | 2024-07-28 07:41 | XMS_ITS | Continuity of Care Document ---
Author Organization [facility] Address [address] [place] [address] [place] [address] Phone Care Team Providers Care Animal Cytologist Name Role Phone Gamal Recio Unavailable Unavailable [...] Providers Copied on Encounter Office/outpat ient Visit, [facility], [address] [place] [address] [address], [place], [place], [id number], [place] tel:[phone] [facility] No Information 2-201 0 Hemal Yeung. Arlet [facility] [address], [place], [address], [place]. tel:[phone] Referring Provider: [facility] [address], [place], [address]. tel:[phone] Office/outpat ient Visit, [facility], [address] [place] [address] [address], [place], [place], [id number], [place] tel:[phone] [facility] [place] No Information Mar-0 9-201 0 Valente Petel. [address], [place], [place], [facility], . tel:[phone] Office/outpat ient Visit, [facility], [address], [place], [place], [address], [place] tel:[phone] [facility] No Information Oct-0 5-200 9 Doisy Edward. [address] , [address], [place], [facility], [place]. tel:[phone] [facility]pat ient [facility], [facility], [address] [place] [address] [address], [place], [place], [id number], [place] tel:[phone] SEC [facility] No Information Sep-2 1-200 9 Doisy Edward. [address] , [address], [place], [facility], [place]. tel:[phone] [facility], [address] [place] [address] [address], [place], [place], [id number], [place] tel:[phone] [facility] No Information Benton-3 1-200 9 Doisy Edward. [address] , [address], [place], [facility], [place]. tel:[phone] Office/outpat ient Visit, [facility], [address] [place] [address] [address], [place], [place], [address], [place] tel:[phone] [facility] [place] No Information Robby-0 9-200 8 Doisy Edward. [address] , [address], [place], [facility], [place]. tel:[phone] [facility]pat ient [facility], [facility], [address], [place], [place], [address], tel:[phone] [facility] No Information 200 7 Hemal Yeung. [address] [place] [address] , [address], [place], [facility], . tel:[phone] Referring Provider: Arlet Calderon [facility] [address], [place], [facility]. tel:[phone] [facility], [address], [place], [place], [address], tel:[phone] [facility] [place] No Information 7 Hemal Yeung. [address] [place] [address] , [address], [place], [facility], . tel:[phone] Referring Provider: Arlet Calderon [facility] [address], [place], [facility]. tel:[phone] Family History Family Member Type Diagnosis Age At Onset No Information Payers Payer name Insurance type Covered libertarian ID Authoriza tion(s) No Information Social History [...]
--- OUTSIDE RECORDS SUMMARY | 2024-07-28 07:42 | XMS_ITS | Data Portability ---
Author Organization [facility] Address [address] [place] [address] Care Team Providers Care Watershed Program Manager Name Role Phone MARY GUDINO Primary Care Provider Unavailab le Assessment No assessment recorded. Plan of Treatment Reminders Order Date Submit Date Provider Last Modified By Organization Details Last Modified Time Details Appointments ANY 15 2024 01:00P M HARDIK Reilly Not available Not available Not available [facility], [facility]23 024 [facility], [address], [place], [address], 04/01/2024 14:03:10 hepatic function panel, serum 2023 024 [facility], [address], [place], [address], 04/01/2024 14:03:09 BMP, serum or plasma 2023 024 [facility], [address], [place], [address], 04/01/2024 14:03:09 TSH + free T4, serum 2023 024 [facility], [address], [place], [address], 04/01/2024 14:03:10 Referral None recorded. Procedures None recorded. Surgeries None recorded. Imaging XR, thoracic spine, 2 view 2023 024 [facility], [address], [place], [address], 07/10/2023 07:26:35 XR, scapula [address] [facility], [address], [place], [address], 07/29/2023 13:55:35 MAMMO, screening , digital, bilateral [address] [facility], [address], [place], [address], 03/08/2024 09:41:10 DEXA [address], [address], [place], [address], 03/08/2024 09:41:04 Medication Orders None recorded. Patient TargetsNo targets recorded. Patient InstructionsNo instructions recorded. Reason for Referral None Reported. Results Created Date Observation Date Name Description Value Unit Range Abnormal Flag Note LastModifiedBy Organization Detail LastModifiedTime 07/10/19 24 07/09/2023 XR, thora cic spine , 2 view No observ ation record ed. [email or web address] [facility] [address], [place], [address], 07/14/2023 17:47:16 Result Notes None recorded. Problems Name Problem SNOMED Code Status Onset Date Resolution Date Notes Provider Name and Address Organization Details Recorded Time Pain of bilateral hip joints 2932626636187 9100 Active 2023 HARDIK Reilly Attn: Rebeka xie,[address] [facility], [place], [address], [place] [facility] 15:47:17 Chronic obstructive pulmonary disease 79684507 Active 2023 HARDIK Reilly Attn: Rebeka xie,[address] [facility], [place], [address], [place] [facility] 4 15:47:18 Leukocytosi s 087581190 Active 2023 HARDIK Reilly Attn: Rebeka xie,[address] [place], [place], [address] [place] [address] 2, [place] [facility] 4 15:47:19 Hypoxemia 137556866 Active 2023 HARDIK Reilly Attn: Rebeka g,[address] [place], [place], [address] [place] [address] 2, [place] [facility] 4 15:47:22 Kyphosis deformity of spine 095250021 Active 2023 HARDIK Reilly Attn: Accountrhianna g,[address] [facility], [place], [place], [address] [place] [address] 2, [place] [facility] 4 15:47:24 Long-term drug therapy Active 2023 HARDIK Reilly Attn: Accountrhianna g,[address] [facility], [place], [place], [address] [place] [address] 2, [place] [facility] 4 15:47:30 Allergic rhinitis 73786509 Active 2023 Alison Reyna LPN null, [place] [facility] 4 10:04:29 Body mass index less than 16.5 752275633 Active 2024 Kassy Roper MA null, [place] [facility] 5 13:58:55 Problem Notes None recorded. Procedures Surgical History None recorded. Imaging Results Imaging Date Name Status LastModified by Organiz ation Details LastModified Time 07/09/2023 XR, thoracic spine, [address] [facility] [address], [place], [address], 07/14/2023 17:47:16 Procedure Notes None recorded. Medical Equipment None Reported. Allergies Allergen ID Allergen Name Allergen Category Reaction Reaction Severity Criticality Documentation Date Start Date Code Code System Note Provider Name and Address Organization Details Recorded Time 715469 codeine medicatio n Not available Not available Not available 07/08/2023 2410 RxNorm EDUARDO [place], [place] - [facility] 4 15:25:38 877985 Product containin g penicilli n (product) medicatio n Not available Not available Not available 07/08/2023 17420 8001 SNOMED EDUARDO [place], [place] - [facility] 4 15:25:46 175988 ibuprofen medicatio n Not available Not available Not available 07/08/2023 5640 RxNorm EDUARDO [place], [place] [facility] 4 15:25:51 Medications Name Sig Start Date Stop Date Status Note LastModified by Organization Details LastModified Time nystatin 100,000 unit/mL oral suspension SHAKE LIQUID AND TAKE 5 ML BY MOUTH FOUR TIMES DAILY NEEDED active Not Available Not Available No t Available hydrocortiso ne 2.5 % topical cream with perineal applicator APPLY A THIN LAYER TO THE AFFECTED AREA(S) BY TOPICAL ROUTE 2-4 TIMESDAILY PRN 2024 active Not Available Not Available Not Avai lable montelukast 10 mg tablet TAKE 1 TABLET BY MOUTH EVERY DAY active Not Available Not Available No t Available gabapentin 100 mg capsule TAKE 1 CAPSULE BY MOUTH EVERY OTHER DAY active Not Available Not Available No t Available fluticasone propionate 50 mcg/actuatio n nasal spray,suspen shanita SHAKE LIQUID AND USE 2 SPRAYS IN EACH NOSTRIL AT SUPPER active Not Available Not Available No t Available Ventolin HFA 90 mcg/actuatio n aerosol inhaler INHALE 1 TO 2 PUFFS BY MOUTH EVERY 4 TO 6 HOURS NEEDED FOR SHORTNESS OF BREATH OR WHEEZING active Not Available Not Available Not Available Vitamin D3 50 mcg (2,000 unit) capsule Take by oral route. active Not Available Not Available Not Available Anoro Ellipta 62.5 mcg-25 mcg/actuatio n powder for inhalation INHALE 1 PUFF BY MOUTH DAILY active Not Available Not Available Not Available Vitals Date Recorded Body height Body mass index (BMI) Body weight Oxygen saturation Oxygen saturation in Arterial blood by Pulse oximetry Heart rate Systolic blood pressure Diastolic blood pressure Provider Name and Address Organization Details Last Updated DateTime 4 155.58 cm 16.7 kg/m2 08344.7 2 g 89 % 89 % 101 /min 130 mm[Hg] 72 mm[Hg] Kassy Roper MA [facility] 4 15:34:41 Date Recorded Respiratory rate Oxygen saturation Oxygen saturation in Arterial blood by Pulse oximetry Systolic blood pressure Diastolic blood pressure Systolic blood pressure Diastolic blood pressure Provider Name and Address Organization Details Last Updated DateTime 4 18 /min 94 % 94 % 140 mm[Hg] 80 mm[Hg] 132 mm[Hg] 80 mm[Hg] HARDIK Reilly Attn: Rebeka xie,[address] [facility], [place], [address], [facility] 4 16:00:16 Date Recorded Body height Body mass index (BMI) Body weight Respiratory rate Oxygen saturation Oxygen saturation in Arterial blood by Pulse oximetry Heart rate Systolic blood pressure Diastolic blood pressure Provider Name and Address Organization Details Last Updated DateTime 4 155.58 cm 15.6 kg/m2 20219.3 5 g 18 /min 96 % 96 % 88 /min 138 mm[Hg] 88 mm[Hg] Kassy Roper MA [facility] 4 15:27:13 Date Recorded Body height Body mass index (BMI) Body weight Oxygen saturation Oxygen saturation in Arterial blood by Pulse oximetry Heart rate Respiratory rate Systolic blood pressure Diastolic blood pressure Provider Name and Address Organization Details Last Updated DateTime 5 155.58 cm 12.1 kg/m2 72419.4 3 g 96 % 96 % 76 /min 18 /min 122 mm[Hg] 80 mm[Hg] Kassy Roper MA [facility] 5 14:01:19 Social History Question Answer Notes LastModified by Organizat ion Details LastModified Time Tobacco Smoking Status Current Every Day Smoker Kassy Roper MA null, [facility] 07/08/2023 15:29:20 Do You Have An Advance Directive? Yes Information n ot available 07/08/2023 Are You Blind Or Do [...] Date Of Your Most Recent Tobacco Screening? 07/18/2024 Information not available 07/18/2024 What Is Your Current Pack Years? 20-29packye ars Information not available 07/08/2023 Do You Use Your Seat Belt Or Car Seat Routinely? Yes Information not available 07/08/2023 Do You Have Smoke And Carbon Monoxide Detectors In Your Home? Yes Information not available 07/08/2023 How Much Tobacco Do You Smoke? 1 PPD Information not available 07/08/2023 Do You Use Sunscreen Routinely? No Information not available 07/08/2023 Has Tobacco Cessation Counseling Been Provided? Yes Information not available 07/08/2023 On What Date Was Tobacco Cessation Counseling Provided? 07/18/2024 Information not available 07/18/2024 Sex: Female Functional Status Question Answer Note LastModified by Organizat ion Details LastModified Time Do you use any illicit or recreational drugs? No Information not available 07/08/2023 Do you or have you ever used any other forms of tobacco or nicotine? No Information not available 07/08/2023 What is your level of alcohol consumption? None Information not available 07/08/2023 Are you able to care for yourself? Yes Information n ot available 07/08/2023 What is your exercise level? Occasional Information not available 07/08/2023 Mental Status Question Answer Note LastModified by Organization D etails LastModified Time Do you feel stressed (tense, restless, nervous, or anxious, or unable to sleep at night)? [id number] Information not available 07/08/2023 Family History Relationship Description Onset Age of this Age Resolved Age Notes LastModified by Organization Details LastModified Time Mother Hypertensive disorder [email or web address] Not available 2023 16:19:57 Mother Hypercholest erolemia tcarterma Not available 2023 16:20:04 Mother Diabetes mellitus tcarterma Not available 2023 16:20:10 Medical History Condition Response Coronary Artery Disease N Other N High Blood Pressure N Atrial Fibrillation N Kidney or Bladder Problems N Thyroid Problems N GI Problems N Depression N COPD Y Blood Clots N Skin Problems N Anemia N Heart Attack (SD) N Anxiety Disorder N Diabetes N Muscle, Joint, or Bone Problems Y Seizures/Epilepsy N Acid Reflux (GERD) N Cancer Y Stroke N Asthma N Allergies N High Cholesterol N Hepatitis N Liver Disease N Headaches N Osteoporosis N Heart Failure N Gynecological History Statement/Question Response Menses Monthly [...] 13:59:53 Influenza, high-dose, quadrivalent, PF 2 completed EDUARDO [place] [facility] 12/30/2023 13:59:53 Influenza, high-dose, quadrivalent, PF 0 completed Kassy Roper [place], [place] [facility] 12/30/2023 13:59:53 Influenza, high-dose, quadrivalent, PF 1 completed Kassy [place] [facility] 12/30/2023 13:59:53 Influenza, high-dose, quadrivalent, PF 3 completed Kassy Roper [place] null, [place] [...] 12/30/2023 13:59:53 pneumococcal polysaccharide PPV23 0 completed Kassy Roper [place] null, [place] [...] Influenza, split virus, quadrivalent, PF 9 completed [place]ARD[place] [facility] 12/30/2023 13:59:53 Influenza, high-dose, trivalent, PF 4 completed HARDIK Reilly Attn: Accounting[address] [place], [address], [place] [facility] 12/31/2023 14:28:21 Past Encounters Encounter ID Performer Location Encounter Start Date Encounter Closed Date Diagnosis/Indication Diagnosis SNOMED-CT Code Diagnosis ICD10 Code Diagnosis Note [id number] Alessio Patricio MD [facility] [address] [place] [address] 07/08/2023 15:05:31 07/08/2023 16:10:39 Chronic obstructive pulmonary disease 38425206 J44.9 Pulmonary is [facility]. Leukocytosis 736422550 D 72.[address] Brownlee and her WBC improved and she follows up in 6 months. Pain of bi lateral hip joints 7088846148 5591248 M25.551 M25.552 hx noted. sees pain management . Long-term drug therapy 222559197 Z79.899 will await records that she will bring us tomorrow. she thinks labs were done in the winter plus dr. Brownlee completed some recently. Kyphosis d eformity of spine 529634131 M40.209 check xray tspine and scapula with deformity noted on exam today Screening mammography 24 565655 Z12.31 annual mammogram due Screening for osteoporosis 791598469 Z13.820 due for DEXA screening. Hypoxemia 986137366 R09. 02 86% on room air after walking, up to 94% with rest. [id number] Alessio Patricio MD [facility] [place] [facility] [address] [place] [address] 12/16/2023 14:38:45 12/24/2023 11:54:41 Chronic obstructive pulmonary disease 94591232 J44.9 Pulmonary is [facility]. Leukocytosis 883942997 D 72.[address] Brownlee and her WBC improved and she follows up in 6 months. Pain of bi lateral hip joints 6554880161 6840443 M25.551 M25.552 hx noted. sees pain management . Hypoxemia 122650510 R09. 02 86% on room air after walking, up to 94% with rest. Kyphosis d eformity of spine 267651991 M40.209 check xray tspine and scapula with deformity noted on exam today Long-term drug therapy 009226791 Z79.899 All routine labs were ordered for routine six-month evaluation Cholesterol screening 27 6344654 Z13.220 Body mass index less than 20 042890052 Z68.1 15.6 [id number] Alessio Patricio MD [facility] [employer] [place] [facility] [employer] [address] [place] [address] 12/31/2023 14:07:26 01/04/2024 15:07:00 Administration of influenza vaccine 05645035 Z23 [id number] Alessio Patricio MD [facility] [place] [facility] [place] [address] [place] [address] 07/18/2024 13:38:14 07/18/2024 14:41:19 Body mass index less than 16.5 606135162 Z68.1 12.1 Chronic ob structive pulmonary disease 51728311 J44.9 Pulmonary is [facility]. Leukocytosis 975320582 D 72.[address] Brownlee and her WBC improved and she follows up in 6 months. Pain of bi lateral hip joints 8972025519 5702542 M25.551 M25.552 hx noted. sees pain management . Kyphosis d eformity of spine 645701277 M40.209 Long-term drug therapy 721165245 Z79.899 All routine labs were ordered for routine six-month evaluation Cholesterol screening 27 7047230 Z13.220 Body mass index less than 20 201163924 Z68.1 External hemorrhoids 239 79663 K64.4 Unintentio nal weight loss 535041096 R63.4 Screening for malignant neoplasm of colon 829686106 Z12.11 Positive s creening for depression on PHQ-9 (Patient Health Questionnaire 9) 7101686039 94952 Z13.31 Health Concerns Section Related Observation LastModified by Organization Detai ls LastModified Time None Recorded Concern Status LastModified by Organization Details LastModified Time None Recorded Advance Directives Directive Y: Payers Encounter Date Sequence Insurance Name Policy Number Policy Paul Covered Member ID Paul Member ID Guarantor Name 07/08/2023 1 [place] Glendy Roblero [id number] 2 Glendy Roblero 07/08/2023 2 [place] [id number] Glendy Roblero [id number] Glendy Roblero 12/16/2023 2 [place] [id number] Glendy Roblero [id number] Glendy Roblero 12/16/2023 [place] [facility] Glendy Roblero [id number] 2 Glendy Roblero 12/31/2023 1 [place] Glendy Roblero [id number] 2 Glendy Roblero 12/31/2023 2 [place] [id number] Glendy Roblero [id number] Glendy Roblero Notes Date Note Type Note Provider Name and Address Organization Details Recorded Time 07/08/2023 text/html COPDReported bypatient.Notes:bolivar ing Anoro Ellipta inhaler.Hip(s)Repor kevyn bypatient.Notes:arden at. hip arthritis. sees pain management and gets gabapentin 100mg daily. HARDIK Reilly Attn: Accounting,[address], [place], [address], [place] [facility] 07/15/2023 13:40:25 12/16/2023 text/html COPDReported bypatient.Notes:bolivar ing Anoro Ellipta inhaler. Patient follows with terrazzo journeyman for managementHip(s)Rep orted bypatient.Notes:arden at. hip arthritis. sees pain management and gets gabapentin 100mg daily. Patient has chronic leukocytosis and follows with oncology hematology for management and evaluation HARDIK Reilly Attn: Accounting[address], [place], [address], [place] [facility] 01/04/2024 10:12:51 OBGyn Episode No OBEpisode recorded.
--- OUTSIDE RECORDS SUMMARY | 2024-07-28 07:42 | XMS_ITS | Clinical Summary ---
Author Organization [facility] Care Team Providers Care Street Superintendent Name Role Phone Unavailable Primary Care Provider [...]
--- OUTSIDE RECORDS SUMMARY | 2024-07-28 07:42 | XMS_ITS | Data Portability ---
Author Organization [place] [facility] [employer], Main Office Address [address] [place] [address] Assessment Encounter Date Assessment Date Assessment LastModified by Organization Details LastModified Time 06/16/2022 06/16/2022 Cscope- 03/2018- [place] repeat 2023 Mammo- 06/2021 DEXA- osteoporosis, refuses meds LDCT- per pulm WWE- DAIRY FARMWORKER- Dr. Chan Call office if worse, ER if life threatening illness RTC 4 months She voices understanding of plan and agrees [email or web address] Not available 06/16/2022 15:06:29 10/14/2022 10/14/2022 Cscope- 03/2018- [place] repeat 2023 Mammo-08/2022 DEXA- osteoporosis, refuses meds LDCT- per pulm HERSON- DAIRY FARMWORKERJacey Chan Call office if worse, ER if life threatening illness RTC 4 months She voices understanding of plan and agrees [email or web address] Not available 10/14/2022 13:59:34 02/10/2023 02/10/2023 Cscope- 03/2018- [place] repeat 2023 Mammo-08/2022 DEXA- osteoporosis, refuses meds LDCT- per pulm GONZALESE- DAIRY FARMWORKERJacey Chan Call office if worse, ER if life threatening illness RTC 4 months- plans to transfer to PCP out of [facility] system She voices understanding of plan and agrees [email or web address] Not available 02/10/2023 15:23:57 Plan of Treatment Reminders Order Date Submit Date Provider Last Modified By Organization Details Last Modified Time Details Appointments None recorded. Lab vitamin D, 25-hydroxy, total, serum 2022 023 [email or web address] [facility] (Lab), [address] [place], [address], 4 15:46:33 CMP, serum or plasma 2022 023 [facility] (Lab), [address] [place], [address], 3 17:19:48 CBC w/ auto diff 2022 023 [facility] (Lab), [address] [place], [address], 3 17:09:49 lipid panel, serum 2022 023 [facility] (Lab), [address] [place], [address], 3 17:19:58 vitamin D, 25-hydroxy, total, serum [address] (Lab), [address] [place], [address], 3 09:18:51 CBC w/ auto diff 2022 023 [facility] (Lab), [address] [place], [address], 3 17:03:00 CMP, serum or plasma 2022 023 [facility] (Lab), [address] [place], [address], 3 19:09:58 lipid panel, serum 2022 023 [facility] (Lab), [address] [place], [address], 3 19:10:03 TSH, serum or plasma 2022 023 [facility] (Lab), [address] [place], [address], 19:23:22 Referral None recorded. Procedures None recorded. Surgeries None recorded. Imaging LDCT, chest, for lung cancer screening - DUE 12/2022 023 [email or web address], [address], [place], [address], 09:48:25 MAMMO, screening, bilateral 2022 023 [email or web address] [facility], [address], [place], [address], 17:20:24 Medication Orders montelukast 10 mg tablet 2022 023 [facility] #[id number], [address], [place], [place], [id number], 3 14:53:31 Anoro Ellipta 62.5 mcg-25 mcg/actuati on powder for inhalation 2022 023 [facility] #[id number], [address], [place], [place], [id number], 3 14:53:30 fluticasone propionate 50 mcg/actuati on nasal spray,suspe nsion 2022 023 [facility] #[id number], [address], [place], [place], [id number], 14:19:12 Anusol-HC 2.5 % topical cream with perineal applicator 2022 023 [facility] #[id number], [address], [place], [place], [id number], 14:19:12 Patient TargetsNo targets recorded. Patient Instructions Encounter Date Encounter Id Patient Instructions Last Modified By Organization Details Last Modified Time 10/14/2022 [id number] dementia rating scale-2* Not available 10/14/2022 14:27:15 depression screening* [email or web address] Not available 10/14/2022 15:30:28 multi-dimensiona l health assessment questionnaire* [email or web address] Not available 10/14/2022 14:27:15 Personalized a [facility] Plan and Screening Recommendations Advance Directives - [...] today Dementia Risk: Low Depression Screening: Negative [email or web address] Not available 10/14/2022 14:28:51 Reason for Referral None Reported. Results Created Date Observation Date Name Description Value Unit Range Abnormal Flag Note LastModifiedBy Organization Detail LastModifiedTime 06/17/1906/16/2022 CBC/C OMPLE TE BLD COUNT W/DIF F white blood cells 9.9 x10'3 /uL 4.2-10 .8 Not Available [facility] (Lab) [address] [place], [address], 06/16/2022 17:03:00 06/17/19 23 06/16/2022 CBC/C OMPLE TE BLD COUNT W/DIF F red blood cells 4.07 x10'6 /uL 3.80-5 .20 Not Available [facility] (Lab) [address] [place], [address], 06/16/2022 17:03:00 06/17/19 23 06/16/2022 CBC/C OMPLE TE BLD COUNT W/DIF F hemoglobin 12.6 g/dL 12.0-1 5.6 Not Available [facility] (Lab) [address] [place], [address], 06/16/2022 17:03:00 06/17/19 23 06/16/2022 CBC/C OMPLE TE BLD COUNT W/DIF F hematocrit 39.0 % 35.7-4 5.7 Not Available [facility] (Lab) [address] [place], [address], 06/16/2022 17:03:00 06/17/19 23 06/16/2022 CBC/C OMPLE TE BLD COUNT W/DIF F mean red cell volume 95.8 fL 82.0-9 9.0 Not Available [facility] (Lab) [address] [place], [address], 06/16/2022 17:03:00 06/17/19 23 06/16/2022 CBC/C OMPLE TE BLD COUNT W/DIF F mean red cell hemoglobin 31.0 pg 27.0-3 3.0 Not Available [facility] (Lab) [address] [place], [address], 06/16/2022 17:03:00 06/17/19 23 06/16/2022 CBC/C OMPLE TE BLD COUNT W/DIF F mean RBC HGB concentratio n 32.3 g/dL 31.0-3 6.0 Not Available [facility] (Lab) [address] [place], [address], 06/16/2022 17:03:00 06/17/19 23 06/16/2022 CBC/C OMPLE TE BLD COUNT W/DIF F red cell distribution width 13.1 % 11.8-1 5.5 Not Available [facility] (Lab) [address] [place], [address], 06/16/2022 17:03:00 06/17/19 23 06/16/2022 CBC/C OMPLE TE BLD COUNT W/DIF F platelets 414 x10'3 /uL 150-40 0 high Not Available [facility] (Lab) [address] [place], [address], 06/16/2022 17:03:00 06/17/19 23 06/16/2022 CBC/C OMPLE TE BLD COUNT W/DIF F mean platelet volume 9.2 fL 9.0-12 .4 Not Available [facility] (Lab) [address] [place], [address], 06/16/2022 17:03:00 06/17/19 23 06/16/2022 CBC/C OMPLE TE BLD COUNT W/DIF F neutrophils 60.7 % 39.0-7 2.0 Not Available [facility] (Lab) [address] [place], [address], 06/16/2022 17:03:00 06/17/19 23 06/16/2022 CBC/C OMPLE TE BLD COUNT W/DIF F lymphocytes 30.2 % 16.0-4 7.0 Not Available [facility] (Lab) [address] [place], [address], 06/16/2022 17:03:00 06/17/19 23 06/16/2022 CBC/C OMPLE TE BLD COUNT W/DIF F monocytes 7.1 % 5.0-12 .0 Not Available [facility] (Lab) [address] [place], [address], 06/16/2022 17:03:00 06/17/19 23 06/16/2022 CBC/C OMPLE TE BLD COUNT W/DIF F eosinophils 1.0 % 1.0-7. 0 Not Available [facility] (Lab) [address] [place], [address], 06/16/2022 17:03:00 06/17/19 23 06/16/2022 CBC/C OMPLE TE BLD COUNT W/DIF F basophils 0.6 % 0.0-2. 0 Not Available [facility] (Lab) [address] [place], [address], 06/16/2022 17:03:00 06/17/19 23 06/16/2022 CBC/C OMPLE TE BLD COUNT W/DIF F immature granulocytes 0.4 % 0.00-0 .50 Not Available [facility] (Lab) [address] [place], [address], 06/16/2022 17:03:00 06/17/19 23 06/16/2022 CBC/C OMPLE TE BLD COUNT W/DIF F neutrophils, absolute count 5.99 x10'3 /uL 1.5-8. 0 Not Available [facility] (Lab) [address] [place], [address], 06/16/2022 17:03:00 06/17/19 23 06/16/2022 CBC/C OMPLE TE BLD COUNT W/DIF F lymphocytes, absolute count 2.98 x10'3 /uL 1.07-3 .43 Not Available [facility] (Lab) [address] [place], [address], 06/16/2022 17:03:00 06/17/19 23 06/16/2022 CBC/C OMPLE TE BLD COUNT W/DIF F monocytes, absolute count 0.70 x10'3 /uL 0.29-0 .99 Not Available [facility] (Lab) [address] [place], [address], 06/16/2022 17:03:00 06/17/19 23 06/16/2022 CBC/C OMPLE TE BLD COUNT W/DIF F eosinophils, absolute count 0.10 x10'3 /uL 0.02-0 .53 Not Available [facility] (Lab) [address] [place], [address], 06/16/2022 17:03:00 06/17/19 23 06/16/2022 CBC/C OMPLE TE BLD COUNT W/DIF F basophils, absolute count 0.06 x10'3 /uL 0.01-0 .08 Not Available [facility] (Lab) [address] [place], [address], 06/16/2022 17:03:00 06/17/19 23 06/16/2022 CBC/C OMPLE TE BLD COUNT W/DIF F immature granulocytes ,absolute 0.04 x10'3 /uL 0.00-0 .05 Not Available [facility] (Lab) [address] [place], [address], 06/16/2022 17:03:00 06/17/19 23 06/16/2022 CBC/C OMPLE TE BLD COUNT W/DIF F nucleated red blood cells 0.0 % -0 Not Available [facility] (Lab) [address] [place], [address], 06/16/2022 17:03:00 06/17/19 23 06/16/2022 CBC/C OMPLE TE BLD COUNT W/DIF F NRBC# 0.00 x10'3 /uL Not Available [facility] (Lab) [address] [place], [address], 06/16/2022 17:03:00 06/17/19 23 06/16/2022 COMPR EHENS MICHAEL METAB OLIC PANEL sodium 136 mmol/ L 137-14 5 low Not Available [facility] (Lab) [address] [place], [address], 06/16/2022 19:09:58 06/17/19 23 06/16/2022 COMPR EHENS MICHAEL METAB OLIC PANEL potassium 4.1 mmol/ L 3.5-5. 1 Not Available [facility] (Lab) [address] [place], [address], 06/16/2022 19:09:58 06/17/19 23 06/16/2022 COMPR EHENS MICHAEL METAB OLIC PANEL chloride 101 mmol/ L 98-107 Not Available [facility] (Lab) [address] [place], [address], 06/16/2022 19:09:58 06/17/19 23 06/16/2022 COMPR EHENS MIHCAEL METAB OLIC PANEL carbon dioxide 26 mmol/ L 22-30 Not Available [facility] (Lab) [address] [place], [address], 06/16/2022 19:09:58 06/17/19 23 06/16/2022 COMPR EHENS MICHAEL METAB OLIC PANEL anion gap 13.1 mmol/ L 14-22 low Not Available [facility] (Lab) [address] [place], [address], 06/16/2022 19:09:58 06/17/19 23 06/16/2022 COMPR EHENS MICHAEL METAB OLIC PANEL glucose 82 mg/dL 70-99 Not Available [facility] (Lab) [address] [place], [address], 06/16/2022 19:09:58 06/17/19 23 06/16/2022 COMPR EHENS MICHAEL METAB OLIC PANEL BUN 7 mg/dL 8-19 low Not Available [facility] (Lab) [address] [place], [address], 06/16/2022 19:09:58 06/17/19 23 06/16/2022 COMPR EHENS MICHAEL METAB OLIC PANEL creatinine 0.88 mg/dL 0.66-1 .25 Not Available [facility] (Lab) [address] [facility] [place], [place], [address], 06/16/2022 19:09:58 06/17/19 23 06/16/2022 COMPR EHENS MICHAEL METAB OLIC PANEL GFR >60 Refer ence Range : [place] ge GFR Healt hy Adult : >60 [...] or ethni c subgr oups, such as [facility] nics. Outsi de the valid ated skye [...] able on the F websi te: https ://gonzales w.malgorzata velasquez.o rg/pr ofess ional s/kdo qi/gf r_cal culat or Not Available [facility] (Lab) [address] [place], [address], 06/16/2022 19:09:58 06/17/19 23 06/16/2022 COMPR EHENS MICHAEL METAB OLIC PANEL alkaline phosphatase 49 U/L 38-126 Not Available [facility] (Lab) [address] [place], [address], 06/16/2022 19:09:58 06/17/19 23 06/16/2022 COMPR EHENS MICHAEL METAB OLIC PANEL alanine aminotransfe rase 13 U/L 0-35 Not Available [facility] (Lab) [address] [place], [address], 06/16/2022 19:09:58 06/17/19 23 06/16/2022 COMPR EHENS MICHAEL METAB OLIC PANEL aspartate aminotransfe rase 20 U/L 15-37 Not Available [facility] (Lab) [address] [place], [address], 06/16/2022 19:09:58 06/17/19 23 06/16/2022 COMPR EHENS MICHAEL METAB OLIC PANEL bilirubin, total 0.30 mg/dL 0.20-1 .30 Not Available [facility] (Lab) [address] [place], [address], 06/16/2022 19:09:58 06/17/19 23 06/16/2022 COMPR EHENS MICHAEL METAB OLIC PANEL calcium 9.0 mg/dL 8.4-10 .2 Not Available [facility] (Lab) [address] [place], [address], 06/16/2022 19:09:58 06/17/19 23 06/16/2022 COMPR EHENS MICHAEL METAB OLIC PANEL total protein 7.4 g/dL 6.3-8. 2 Not Available [facility] (Lab) [address] [place], [address], 06/16/2022 19:09:58 06/17/19 23 06/16/2022 COMPR EHENS MICHAEL METAB OLIC PANEL albumin 4.0 g/dL 3.0-4. 4 Not Available [facility] (Lab) [address] [place], [address], 06/16/2022 19:09:58 06/17/19 23 06/16/2022 COMPR EHENS MICHAEL METAB OLIC PANEL globulin 3.4 g/dL 2.6-4. 2 Not Available [facility] (Lab) [address] [place], [address], 06/16/2022 19:09:58 06/17/19 23 06/16/2022 COMPR EHENS MICHAEL METAB OLIC PANEL A/G ratio 1.2 ratio 1.0-2. 0 Not Available [facility] (Lab) [address] [place], [address], 06/16/2022 19:09:58 06/17/19 23 06/16/2022 LIPID PANEL cholesterol 178 mg/dL 140-19 9 NIH LALIT NSUS RECOM MENDA TION FOR HELEN STERO L: ADULT CHILD LOW RISK: <200 <170 BORDE RLINE : <200- 239 ----- HIGH RISK: >240 >200 Not Available [facility] (Lab) [address] [place], [address], 06/16/2022 19:10:03 06/17/19 23 06/16/2022 LIPID PANEL triglyceride s 71 mg/dL 0-150 NIH LALIT NSUS REPOR T RECOM MENDA TION FOR TRIGL YCERI CHEIKH: ADULT CHILD LOW RISK: <150 ----- BODER LINE: 150-1 99 ----- HIGH RISK: >200 ----- Not Available [facility] (Lab) [address] [place], [address], 06/16/2022 19:10:03 06/17/19 23 06/16/2022 LIPID PANEL HDL cholesterol 63 mg/dL 40- Not Available [facility] (Lab) [address] [place], [address], 06/16/2022 19:10:03 06/17/19 23 06/16/2022 LIPID PANEL [...] WILL NOT BE REPOR PATSY. Not Available [facility] (Lab) [address] [place], [address], 06/16/2022 19:10:03 06/17/19 23 06/16/2022 VITAM IN D 25-HY DROXY [id number] 68.3 NG/mL 30-100 Vitam in D Statu s: Defic ient: <20 ng/mL Insuf ficie nt: 20-29 ng/mL Suffi cient : 30-10 0 ng/mL Not Available [facility] (Lab) [address] [place], [address], 06/16/2022 19:23:07 06/17/1906/16/2022 TSH W/REF SEGUNDO FT4 TSH with reflex free T4 2.010 uIU/m L 0.465- 4.680 Not Available [facility] (Lab) [address] [place], [address], 06/16/2022 19:23:22 02/11/20 23 02/10/2023 CBC/C OMPLE TE BLD COUNT W/DIF F white blood cells 12.6 x10'3 /uL 4.2-10 .8 high Not Available [facility] (Lab) [address] [place], [address], 02/10/2023 17:09:48 02/11/20 23 02/10/2023 CBC/C OMPLE TE BLD COUNT W/DIF F red blood cells 4.13 x10'6 /uL 3.80-5 .20 Not Available [facility] (Lab) [address] [place], [address], 02/10/2023 17:09:48 02/11/20 23 02/10/2023 CBC/C OMPLE TE BLD COUNT W/DIF F hemoglobin 13.3 g/dL 12.0-1 5.6 Not Available [facility] (Lab) [address] [place], [address], 02/10/2023 17:09:48 02/11/20 23 02/10/2023 CBC/C OMPLE TE BLD COUNT W/DIF F hematocrit 40.9 % 35.7-4 5.7 Not Available [facility] (Lab) [address] [place], [address], 02/10/2023 17:09:48 02/11/20 23 02/10/2023 CBC/C OMPLE TE BLD COUNT W/DIF F mean red cell volume 99.0 fL 82.0-9 9.0 Not Available [facility] (Lab) [address] [place], [address], 02/10/2023 17:09:48 02/11/20 23 02/10/2023 CBC/C OMPLE TE BLD COUNT W/DIF F mean red cell hemoglobin 32.2 pg 27.0-3 3.0 Not Available [facility] (Lab) [address] [place], [address], 02/10/2023 17:09:48 02/11/20 23 02/10/2023 CBC/C OMPLE TE BLD COUNT W/DIF F mean RBC HGB concentratio n 32.5 g/dL 31.0-3 6.0 Not Available [facility] (Lab) [address] [place], [address], 02/10/2023 17:09:48 02/11/20 23 02/10/2023 CBC/C OMPLE TE BLD COUNT W/DIF F red cell distribution width 13.2 % 11.8-1 5.5 Not Available [facility] (Lab) [address] [place], [address], 02/10/2023 17:09:48 02/11/20 23 02/10/2023 CBC/C OMPLE TE BLD COUNT W/DIF F platelets 437 x10'3 /uL 150-40 0 high Not Available [facility] (Lab) [address] [place], [address], 02/10/2023 17:09:48 02/11/20 23 02/10/2023 CBC/C OMPLE TE BLD COUNT W/DIF F mean platelet volume 9.4 fL 9.0-12 .4 Not Available [facility] (Lab) [address] [place], [address], 02/10/2023 17:09:48 02/11/20 23 02/10/2023 CBC/C OMPLE TE BLD COUNT W/DIF F neutrophils 69.3 % 39.0-7 2.0 Not Available [facility] (Lab) [address] [place], [address], 02/10/2023 17:09:48 02/11/20 23 02/10/2023 CBC/C OMPLE TE BLD COUNT W/DIF F lymphocytes 23.2 % 16.0-4 7.0 Not Available [facility] (Lab) [address] [facility] [place], [address], 02/10/2023 17:09:48 02/11/20 23 02/10/2023 CBC/C OMPLE TE BLD COUNT W/DIF F monocytes 5.9 % 5.0-12 .0 Not Available [facility] (Lab) [address] [place], [address], 02/10/2023 17:09:48 02/11/20 23 02/10/2023 CBC/C OMPLE TE BLD COUNT W/DIF F eosinophils 0.8 % 1.0-7. 0 low Not Available [facility] (Lab) [address] [place], [address], 02/10/2023 17:09:48 02/11/20 23 02/10/2023 CBC/C OMPLE TE BLD COUNT W/DIF F basophils 0.5 % 0.0-2. 0 Not Available [facility] (Lab) [address] [place], [address], 02/10/2023 17:09:48 02/11/20 23 02/10/2023 CBC/C OMPLE TE BLD COUNT W/DIF F immature granulocytes 0.3 % 0.00-0 .50 Not Available [facility] (Lab) [address] [place], [address], 02/10/2023 17:09:48 02/11/20 23 02/10/2023 CBC/C OMPLE TE BLD COUNT W/DIF F neutrophils, absolute count 8.74 x10'3 /uL 1.5-8. 0 high Not Available [facility] (Lab) [address] [place], [address], 02/10/2023 17:09:48 02/11/20 23 02/10/2023 CBC/C OMPLE TE BLD COUNT W/DIF F lymphocytes, absolute count 2.92 x10'3 /uL 1.07-3 .43 Not Available [facility] (Lab) [address] [place], [address], 02/10/2023 17:09:48 02/11/20 23 02/10/2023 CBC/C OMPLE TE BLD COUNT W/DIF F monocytes, absolute count 0.75 x10'3 /uL 0.29-0 .99 Not Available [facility] (Lab) [address] [place], [address], 02/10/2023 17:09:48 02/11/20 23 02/10/2023 CBC/C OMPLE TE BLD COUNT W/DIF F eosinophils, absolute count 0.10 x10'3 /uL 0.02-0 .53 Not Available [facility] (Lab) [address] [place], [address], 02/10/2023 17:09:48 02/11/20 23 02/10/2023 CBC/C OMPLE TE BLD COUNT W/DIF F basophils, absolute count 0.06 x10'3 /uL 0.01-0 .08 Not Available [facility] (Lab) [address] [place], [address], 02/10/2023 17:09:48 02/11/20 23 02/10/2023 CBC/C OMPLE TE BLD COUNT W/DIF F immature granulocytes ,absolute 0.04 x10'3 /uL 0.00-0 .05 Not Available [facility] (Lab) [address] [place], [address], 02/10/2023 17:09:48 02/11/20 23 02/10/2023 CBC/C OMPLE TE BLD COUNT W/DIF F nucleated red blood cells 0.0 % -0 Not Available [facility] (Lab) [address] [place], [address], 02/10/2023 17:09:48 02/11/20 23 02/10/2023 CBC/C OMPLE TE BLD COUNT W/DIF F NRBC# 0.00 x10'3 /uL Not Available [facility] (Lab) [address] [place], [address], 02/10/2023 17:09:48 02/11/20 23 02/10/2023 VITAM IN D 25-HY DROXY vd25oh 84.7 NG/mL 30-100 Vitam in D Statu s: Defic ient: <20 ng/mL Insuf ficie nt: 20-29 ng/mL Suffi cient : 30-10 0 ng/mL Not Available [facility] (Lab) [address] [place], [address], 02/10/2023 17:17:24 02/11/20 23 02/10/2023 COMPR EHENS MICHAEL METAB OLIC PANEL sodium 134 mmol/ L 137-14 5 low Not Available [facility] (Lab) [address] [place], [address], 02/10/2023 17:19:48 02/11/20 23 02/10/2023 COMPR EHENS MICHAEL METAB OLIC PANEL potassium 4.4 mmol/ L 3.5-5. 1 Not Available [facility] (Lab) [address] [place], [address], 02/10/2023 17:19:48 02/11/20 23 02/10/2023 COMPR EHENS MICHAEL METAB OLIC PANEL chloride 98 mmol/ L 98-107 Not Available [facility] (Lab) [address] [place], [address], 02/10/2023 17:19:48 02/11/20 23 02/10/2023 COMPR EHENS MICHAEL METAB OLIC PANEL carbon dioxide 28 mmol/ L 22-30 Not Available [facility] (Lab) [address] [place], [address], 02/10/2023 17:19:48 02/11/20 23 02/10/2023 COMPR EHENS MICHAEL METAB OLIC PANEL anion gap 12.4 mmol/ L 14-22 low Not Available [facility] (Lab) [address] [place], [address], 02/10/2023 17:19:48 02/11/20 23 02/10/2023 COMPR EHENS MICHAEL METAB OLIC PANEL glucose 93 mg/dL 70-99 Not Available [facility] (Lab) [address] [place], [address], 02/10/2023 17:19:48 02/11/20 23 02/10/2023 COMPR EHENS MICHAEL METAB OLIC PANEL BUN 8 mg/dL 8-19 Not Available [facility] (Lab) [address] [place], [address], 02/10/2023 17:19:48 02/11/20 23 02/10/2023 COMPR EHENS MICHAEL METAB OLIC PANEL creatinine 0.83 mg/dL 0.66-1 .25 Not Available [facility] (Lab) [address] [place], [address], 02/10/2023 17:19:48 02/11/2002/10/2023 COMPR EHENS MICHAEL METAB OLIC PANEL GFR >60 Refer ence Range : [place] ge GFR Healt hy Adult : >60 [...] able on the F websi te: https ://gonzales hammond.malgorzata velasquez.o han/vilma gauthier s/kdo qi/gf r_cal culat or Not Available [facility] (Lab) [address] [place], [address], 02/10/2023 17:19:48 02/11/20 23 02/10/2023 COMPR EHENS MICHAEL METAB OLIC PANEL alkaline phosphatase 52 U/L 38-126 Not Available [facility] (Lab) [address] [place], [address], 02/10/2023 17:19:48 02/11/20 23 02/10/2023 COMPR EHENS MICHAEL METAB OLIC PANEL alanine aminotransfe rase 12 U/L 0-35 Not Available [facility] (Lab) [address] [place], [address], 02/10/2023 17:19:48 02/11/20 23 02/10/2023 COMPR EHENS MICHAEL METAB OLIC PANEL aspartate aminotransfe rase 21 U/L 15-37 Not Available [facility] (Lab) [address] [place], [address], 02/10/2023 17:19:48 02/11/20 23 02/10/2023 COMPR EHENS MICHAEL METAB OLIC PANEL bilirubin, total 0.40 mg/dL 0.20-1 .30 Not Available [facility] (Lab) [address] [place], [address], 02/10/2023 17:19:48 02/11/20 23 02/10/2023 COMPR EHENS MICHAEL METAB OLIC PANEL calcium 9.8 mg/dL 8.4-10 .2 Not Available [facility] (Lab) [address] [place], [address], Ph [id number]|2024-07-28 07:42:00|2024-07-28 07:41:00|XMS_ITS|BREEZYG DK|External Medical Summaries|[id number]|" Clinical Summary Created on: July 28, 2024 Glendy Roblero : 1945 Sex: Female Author Organization [facility] Address [address] [place] [address] Care Team Providers Care Electricians Top Helper Name Role Phone Unavailable Primary Care Provider [...] mouth. Active fluticasone propionate (FLONASE) 50 mcg/spray [place], Suspension nasal inhaler Administer 2 Sprays in each nostril daily. Active Active Problems No known active problems Encounters Date Type Department Care Team Description 07/04/2024 Orders Only [facility] Oncology and Hematology - [place] [address] 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 [address] [place] [address] Shaun Barlow MD [address] [facility] [address] [place] [address] Health Maintenance Due Date Last Done Comments DTAP/TDAP/TD VACCINES (1 - Tdap) 1965 Lung Cancer Screening 1996 ZOSTER VACCINE (1 of 2) 1996 RSV VACCINE (60+ or ) (1 - 1-dose 75+ series) 2021 INFLUENZA VACCINE (#1) 2023 3, 12/16/2021, 12/16/2020, Additional history exists OSTEOPOROSIS SCREENING 02/02/2025 02/03/2020 PNEUMOCOCCAL VACCINE 50+ YEARS Completed 11/17/2019 , 11/02/2018 Procedures Procedure Name Priority Date/Time Associated Diagnosis Comments CT LUNG SCREENING (FOLLOW UP LOW DOSE) Routine 07/01/2024 10:00 AM CDT from Last 3 Months Results * CT LUNG SCREENING (FOLLOW UP LOW DOSE) (07/01/2024 10:00 AM CDT) Anatomical Region Laterality Modality Chest Computed Tomogra phy Shaun Barlow MD CT ORDERABLES Final Result from Last 3 Months Insurance MEDICARE PART A AND B [facility] "
[2024-07-28 08:06] LABS: Estimated Glomerular Filt Rate > 60
== END 2024-07-28 07:37 | disposition home or self-care (01) ==
PROVIDERS: PCP Physician Assistant; Visit Provider Physician Assistant
DX: R63.4 Abnormal weight loss (principal)
CPT/HCPCS: 74177; Q9967

== ENCOUNTER 2024-08-18 01:29 | Day surgery (SDC) | payer MEDICARE, SELFPAY ==
[2024-08-09 10:48] VITALS: BMI 13.1
--- OUTSIDE RECORDS SUMMARY | 2024-08-18 01:33 | XMS_ITS | CONTINUITY OF CARE DOCUMENT ---
Author Name felipe wang Address Unknown Organization [facility] Address [address] [place] [address] Phone [phone] Care Team Providers Care Pen And Pencil Repairer Name Role Phone felipe wang Unavailable Unavailable
--- OUTSIDE RECORDS SUMMARY | 2024-08-18 01:33 | XMS_ITS | Continuity of Care Document ---
Author Organization [facility] Address [address] [place] [address] [place] [address] Phone Care Team Providers Care Lens Block Gauger Name Role Phone Gamal Recio Unavailable Unavailable [...] Providers Copied on Encounter Office/outpat ient Visit, [facility], [address] [place] [address] [address], [place], [place], [id number], [place] tel:[phone] [facility] No Information 2-201 0 Hemal Yeung. [facility] [address], [place], [address], [place]. tel:[phone] Referring Provider: [facility] [address], [place], [address]. tel:[phone] Office/outpat ient Visit, [facility], [address] [place] [address] [address], [place], [place], [id number], [place] tel:[phone] [facility] No Information Mar-0 9-201 0 Valente Petel. [address], [place], [place], [facility], . tel:[phone] Office/outpat ient Visit, [facility], [address], [place], [place], [id number], [place] tel:[phone] [facility] No Information Oct-0 5-200 9 Doisy Edward. [address] , [address], [place], [facility], [place]. tel:[phone] [facility]pat [facility], [facility], [address] [place] [address] [address], [place], [place], [id number], [place] tel:[phone] [facility] No Information Sep-2 1-200 9 Doisy Edward. [address] , [address], [place], [facility], [place]. tel:[phone] [facility], [id number] [place] [address] [address], [place], [place], [id number], [place] tel:[phone] [facility] No Information Benton-3 1-200 9 Doisy Edward. [address] , [address], [place], [facility], [place]. tel:[phone] Office/outpat ient Visit, [facility], [address] [place] [address] [address], [place], [place], [id number], [place] tel:[phone] [facility] No Information Robby-0 9-200 8 Doisy Edward. [address] , [address], [place], [facility], [place]. tel:[phone] [facility]pat [facility], [facility], [address], [place], [place], [id number], tel:[phone] [facility] No Information 200 7 Hemal Yeung. [address] [place] [address] , [address], [place], [facility], . tel:[phone] Referring Provider: Arlet Calderon [facility] [address], [place], [facility]. tel:[phone] [facility], [address], [place], [place], [id number], tel:[phone] [facility] No Information 7 Hemal Yeung. [address] [place] [address] , [address], [place], [facility], . tel:[phone] Referring Provider: Arlet Calderon [facility] [address], [place], [facility]. tel:[phone] Family History Family Member Type Diagnosis Age At Onset No Information Payers Payer name Insurance type Covered democrat ID Authoriza tion(s) No Information Social History [...]
--- OUTSIDE RECORDS SUMMARY | 2024-08-18 01:33 | XMS_ITS | Clinical Summary ---
Author Organization [facility] Cipriano mayen Giselle Address [address] [place] [address] Care Team Providers Care Form Presser Name Role Phone Unavailable Primary Care Provider [...] mouth. Active fluticasone propionate (FLONASE) 50 mcg/spray [place], Suspension nasal inhaler Administer 2 Sprays in each nostril daily. Active Active Problems No known active problems Encounters Date Type Department Care Team Description 08/09/2024 External Device Data [facility] ABSTRACTION Provider, Abstract 08/04/2024 External Device Data [facility] ABSTRACTION Provider, Abstract 08/03/2024 External Device Data [facility] ABSTRACTION Provider, Abstract 07/04/2024 Orders Only [facility] Oncology and Hematology - [place] [address] [place] [address] Shaun Barlow MD from Last 3 Months Family History Medical [...] on file Legal Sex Female 11:50 AM DIRECTOR CLIENT Gender Identity Not on file Sexual Orientation [...] 1:39 PM CDT Height 154.9 cm (5' 1) 04/15/2023 3:03 PM DIRECTOR CLIENT Body Mass Index 15.87 04/15/2023 3:03 PM DIRECTOR CLIENT Plan of Treatment Upcoming Encounters Date Type Department Care Team (Late st Contact Info) Description 09/30/2024 12:30 PM CDT Office Visit [facility] Oncology and Hematology - [place] [address] [place] [address] [facility] [address] [place] [address] [place] [address] [place] [address] [address] [place] [address] Health Maintenance Due Date Last [...] Months Insurance MEDICARE PART A AND B BCBS SUPP
--- OUTSIDE RECORDS SUMMARY | 2024-08-18 01:33 | XMS_ITS | Data Portability ---
Author Organization [facility] - [facility] [employer], Main Office Address [address] [place] [address] Assessment Encounter Date Assessment Date Assessment LastModified by Organization Details LastModified Time 06/16/2022 06/16/2022 Cscope- 03/2018- [facility] repeat 2023 Mammo- 06/2021 DEXA- osteoporosis, refuses meds LDCT- per pulm WWE- PRODUCTION CONTROL CLERK- Dr. Chan Call office if worse, ER if life threatening illness RTC 4 months She voices understanding of plan and agrees [email or web address] Not available 06/16/2022 15:06:29 10/14/2022 10/14/2022 Cscope- 03/2018- [place] repeat 2023 Mammo-08/2022 DEXA- osteoporosis, refuses meds LDCT- per pulmiguel BAINS- PRODUCTION CONTROL CLERKJacey Chan Call office if worse, ER if life threatening illness RTC 4 months She voices understanding of plan and agrees Not available 10/14/2022 13:59:34 02/10/2023 02/10/2023 Cscope- 03/2018- [place] repeat 2023 Mammo-08/2022 DEXA- osteoporosis, refuses meds LDCT- per pulmiguel ROLONE- PRODUCTION CONTROL CLERK- Dr. Chan Call office if worse, ER if life threatening illness RTC 4 months- plans to transfer to PCP out of [facility] system She voices understanding of plan and agrees [email or web address] Not available 02/10/2023 15:23:57 Plan of Treatment Reminders Order Date Submit Date Provider Last Modified By Organization Details Last Modified Time Details Appointments None recorded. Lab vitamin D, 25-hydroxy, total, serum 2022 023 [email or web address] [facility] (Lab), [address] [place], [address], 4 15:46:33 CMP, serum or plasma 2022 023 [facility] (Lab), [address] [place], [address], 3 17:19:48 CBC w/ auto diff 2022 023 [facility] (Lab), [address] [place], [address], 3 17:09:49 lipid panel, serum 2022 023 [facility] (Lab), [address] [place], [address], 3 17:19:58 vitamin D, 25-hydroxy, total, serum [address] (Lab), [address] [place], [address], 3 09:18:51 CBC w/ auto diff 2022 023 [facility] (Lab), [address] [place], [address], 3 17:03:00 CMP, serum or plasma 2022 023 [facility] (Lab), [address] [place], [address], 3 19:09:58 lipid panel, serum 2022 023 [facility] (Lab), [address] [place], [address], 3 19:10:03 TSH, serum or plasma 2022 023 [facility] (Lab), [address] [place], [address], 19:23:22 Referral None recorded. Procedures None recorded. Surgeries None recorded. Imaging LDCT, chest, for lung cancer screening - DUE 12/2022 023 [email or web address] [facility], [address], [place], [address], 09:48:25 MAMMO, screening, bilateral 2022 023 [email or web address] [facility], [address], [place], [address], 17:20:24 Medication Orders montelukast 10 mg tablet 2022 023 [id number], [address], [place], [place], [id number], 3 14:53:31 Anoro Ellipta 62.5 mcg-25 mcg/actuati on powder for inhalation 2022 023 [facility] #[id number], [address], [place], [place], [id number], 3 14:53:30 fluticasone propionate 50 mcg/actuati on nasal spray,suspe nsion 2022 023 [facility] #[id number], [address], [place], [place], [id number], 3 14:19:12 Anusol-HC 2.5 % topical cream with perineal applicator 2022 023 [facility] #[id number], [address], [place], [place], [id number], 14:19:12 Patient TargetsNo targets recorded. Patient Instructions Encounter Date Encounter Id Patient Instructions Last Modified By Organization Details Last Modified Time 10/14/2022 [id number] dementia rating scale-2* Not available 10/14/2022 14:27:15 depression screening* [email or web address] Not available 10/14/2022 15:30:28 multi-dimensiona l health assessment questionnaire* [email or web address] Not available 10/14/2022 14:27:15 [facility] Plan and Screening Recommendations Advance Directives [...] activity: Need more exercise/physical activity minimum of 30-40 minutes of activity that causes mild breathlessness/day Nutrition: Average Refer to attached handout Heart-Healthy Diet: After Your Visit Fall Risk (screened today): Intermediate Refer to attached handout Preventing Falls: After your Visit Vaccines Pneumococcal: No further needed Influenza: Your next one in the fall of this year Chronic Disease Risks Stroke: Intermediate Risk Heart Attack: Intermediate Risk Clogging of the Arteries: Intermediate Risk Diabetes: Low Risk Secondary Prevention/Interven tion (detects treatable diseases before they may cause symptoms, disability, or ) Breast Cancer Screening with mammogram: Your next mammogram: Ordered Recommended today Recommended today, but you have declined No screening necessary Your next mammogram: 08/2023 Cervical/Uterine/Ov cristal Cancer Screening: No screening necessary Osteoporosis Screening: Recommended today, but you have declined Date Screening Last Performed: Colon Cancer Screening: Colonoscopy In: Ordered Recomme nded Recommended today, but you have declined No screening necessary In: 2023 Date Screening Last Performed: Eye Disease Screening: Recommended today Dementia Risk: Low Depression Screening: Negative [email or web address] Not available 10/14/2022 14:28:51 Reason for Referral None Reported. Results Created Date Observation Date Name Description Value Unit Range Abnormal Flag Note LastModifiedBy Organization Detail LastModifiedTime 06/17/1906/16/2022 CBC/C OMPLE TE BLD COUNT W/DIF F white blood cells 9.9 x10'3 /uL 4.2-10 .8 Not Available [facility] (Lab) [address] [place], [address], 06/16/2022 17:03:00 06/17/19 23 06/16/2022 CBC/C OMPLE TE BLD COUNT W/DIF F red blood cells 4.07 x10'6 /uL 3.80-5 .20 Not Available [facility] (Lab) [address] [place], [address], 06/16/2022 17:03:00 06/17/19 23 06/16/2022 CBC/C OMPLE TE BLD COUNT W/DIF F hemoglobin 12.6 g/dL 12.0-1 5.6 Not Available [facility] (Lab) [address] [place], [address], 06/16/2022 17:03:00 06/17/19 23 06/16/2022 CBC/C OMPLE TE BLD COUNT W/DIF F hematocrit 39.0 % 35.7-4 5.7 Not Available [facility] (Lab) [address] [place], [address], 06/16/2022 17:03:00 06/17/19 23 06/16/2022 CBC/C OMPLE TE BLD COUNT W/DIF F mean red cell volume 95.8 fL 82.0-9 9.0 Not Available [facility] (Lab) [address] [place], [address], 06/16/2022 17:03:00 06/17/19 23 06/16/2022 CBC/C OMPLE TE BLD COUNT W/DIF F mean red cell hemoglobin 31.0 pg 27.0-3 3.0 Not Available [facility] (Lab) [address] [place], [address], 06/16/2022 17:03:00 06/17/19 23 06/16/2022 CBC/C OMPLE TE BLD COUNT W/DIF F mean RBC HGB concentratio n 32.3 g/dL 31.0-3 6.0 Not Available [facility] (Lab) [address] [place], [address], 06/16/2022 17:03:00 06/17/19 23 06/16/2022 CBC/C OMPLE TE BLD COUNT W/DIF F red cell distribution width 13.1 % 11.8-1 5.5 Not Available [facility] (Lab) [address] [place], [address], 06/16/2022 17:03:00 06/17/19 23 06/16/2022 CBC/C OMPLE TE BLD COUNT W/DIF F platelets 414 x10'3 /uL 150-40 0 high Not Available [facility] (Lab) [address] [place], [address], 06/16/2022 17:03:00 06/17/19 23 06/16/2022 CBC/C OMPLE TE BLD COUNT W/DIF F mean platelet volume 9.2 fL 9.0-12 .4 Not Available [facility] (Lab) [address] [place], [address], 06/16/2022 17:03:00 06/17/19 23 06/16/2022 CBC/C OMPLE TE BLD COUNT W/DIF F neutrophils 60.7 % 39.0-7 2.0 Not Available [facility] (Lab) [address] [place], [address], 06/16/2022 17:03:00 06/17/19 23 06/16/2022 CBC/C OMPLE TE BLD COUNT W/DIF F lymphocytes 30.2 % 16.0-4 7.0 Not Available [facility] (Lab) [address] [place], [address], 06/16/2022 17:03:00 06/17/19 23 06/16/2022 CBC/C OMPLE TE BLD COUNT W/DIF F monocytes 7.1 % 5.0-12 .0 Not Available [facility] (Lab) [address] [place], [address], 06/16/2022 17:03:00 06/17/19 23 06/16/2022 CBC/C OMPLE TE BLD COUNT W/DIF F eosinophils 1.0 % 1.0-7. 0 Not Available [facility] (Lab) [address] [place], [address], 06/16/2022 17:03:00 06/17/19 23 06/16/2022 CBC/C OMPLE TE BLD COUNT W/DIF F basophils 0.6 % 0.0-2. 0 Not Available [facility] (Lab) [address] [place], [address], 06/16/2022 17:03:00 06/17/19 23 06/16/2022 CBC/C OMPLE TE BLD COUNT W/DIF F immature granulocytes 0.4 % 0.00-0 .50 Not Available [facility] (Lab) [address] [place], [address], 06/16/2022 17:03:00 06/17/1906/16/2022 CBC/C OMPLE TE BLD COUNT W/DIF F neutrophils, absolute count 5.99 x10'3 /uL 1.5-8. 0 Not Available [facility] (Lab) [address] [place], [address], 06/16/2022 17:03:00 06/17/19 23 06/16/2022 CBC/C OMPLE TE BLD COUNT W/DIF F lymphocytes, absolute count 2.98 x10'3 /uL 1.07-3 .43 Not Available [facility] (Lab) [address] [place], [address], 06/16/2022 17:03:00 06/17/19 23 06/16/2022 CBC/C OMPLE TE BLD COUNT W/DIF F monocytes, absolute count 0.70 x10'3 /uL 0.29-0 .99 Not Available [facility] (Lab) [address] [place], [address], 06/16/2022 17:03:00 06/17/19 23 06/16/2022 CBC/C OMPLE TE BLD COUNT W/DIF F eosinophils, absolute count 0.10 x10'3 /uL 0.02-0 .53 Not Available [facility] (Lab) [address] [place], [address], 06/16/2022 17:03:00 06/17/19 23 06/16/2022 CBC/C OMPLE TE BLD COUNT W/DIF F basophils, absolute count 0.06 x10'3 /uL 0.01-0 .08 Not Available [facility] (Lab) [address] [place], [address], 06/16/2022 17:03:00 06/17/19 23 06/16/2022 CBC/C OMPLE TE BLD COUNT W/DIF F immature granulocytes ,absolute 0.04 x10'3 /uL 0.00-0 .05 Not Available [facility] (Lab) [address] [place], [address], 06/16/2022 17:03:00 06/17/19 23 06/16/2022 CBC/C OMPLE TE BLD COUNT W/DIF F nucleated red blood cells 0.0 % -0 Not Available [facility] (Lab) [address] [place], [address], 06/16/2022 17:03:00 06/17/19 23 06/16/2022 CBC/C OMPLE TE BLD COUNT W/DIF F NRBC# 0.00 x10'3 /uL Not Available [facility] (Lab) [address] [place], [address], 06/16/2022 17:03:00 06/17/19 23 06/16/2022 COMPR EHENS MICHAEL METAB OLIC PANEL sodium 136 mmol/ L 137-14 5 low Not Available [facility] (Lab) [address] [place], [address], 06/16/2022 19:09:58 06/17/19 23 06/16/2022 COMPR EHENS MICHAEL METAB OLIC PANEL potassium 4.1 mmol/ L 3.5-5. 1 Not Available [facility] (Lab) [address] [place], [address], 06/16/2022 19:09:58 06/17/19 23 06/16/2022 COMPR EHENS MICHAEL METAB OLIC PANEL chloride 101 mmol/ L 98-107 Not Available [facility] (Lab) [address] [place], [address], 06/16/2022 19:09:58 06/17/19 23 06/16/2022 COMPR EHENS MICHAEL METAB OLIC PANEL carbon dioxide 26 mmol/ L 22-30 Not Available [facility] (Lab) [address] [place], [address], 06/16/2022 19:09:58 06/17/19 23 06/16/2022 COMPR EHENS MICHAEL METAB OLIC PANEL anion gap 13.1 mmol/ L 14-22 low Not Available [facility] (Lab) [address] [place], [address], 06/16/2022 19:09:58 06/17/19 23 06/16/2022 COMPR EHENS MICHAEL METAB OLIC PANEL glucose 82 mg/dL 70-99 Not Available [facility] (Lab) [address] [place], [address], 06/16/2022 19:09:58 06/17/19 23 06/16/2022 COMPR EHENS MICHAEL METAB OLIC PANEL BUN 7 mg/dL 8-19 low Not Available [facility] (Lab) [address] [place], [address], 06/16/2022 19:09:58 06/17/19 23 06/16/2022 COMPR EHENS MICHAEL METAB OLIC PANEL creatinine 0.88 mg/dL 0.66-1 .25 Not Available [facility] (Lab) [address] [place], [address], 06/16/2022 19:09:58 06/17/19 23 06/16/2022 COMPR EHENS MICHAEL METAB OLIC PANEL GFR >60 Refer ence Range : [place] ge GFR Healt hy Adult : >60 [...] or ethni c subgr oups, such as va nics. Outsi de the valid ated skye [...] calcu lator is avail able on the [facility] websi te: https :[email or web address] [email or web address] housery.o rg/pr ofess ional s/kdo qi/gf r_cal culat or Not Available [facility] (Lab) [address] [place], [address], 06/16/2022 19:09:58 06/17/19 23 06/16/2022 COMPR EHENS MICHAEL METAB OLIC PANEL alkaline phosphatase 49 U/L 38-[address] [facility] (Lab) [address] [place], [address], 06/16/2022 19:09:58 06/17/19 23 06/16/2022 COMPR EHENS MICHAEL METAB OLIC PANEL alanine aminotransfe rase 13 U/L 0-35 Not Available [facility] (Lab) [address] [place], [address], 06/16/2022 19:09:58 06/17/19 23 06/16/2022 COMPR EHENS MICHAEL METAB OLIC PANEL aspartate aminotransfe rase 20 U/L 15-37 Not Available [facility] (Lab) [address] [place], [address], 06/16/2022 19:09:58 06/17/19 23 06/16/2022 COMPR EHENS MICHAEL METAB OLIC PANEL bilirubin, total 0.30 mg/dL 0.20-1 .30 Not Available [facility] (Lab) [address] [place], [address], 06/16/2022 19:09:58 06/17/19 23 06/16/2022 COMPR EHENS MICHAEL METAB OLIC PANEL calcium 9.0 mg/dL 8.4-10 .2 Not Available [facility] (Lab) [address] [facility] [place], [address], 06/16/2022 19:09:58 06/17/19 23 06/16/2022 COMPR EHENS MICHAEL METAB OLIC PANEL total protein 7.4 g/dL 6.3-8. 2 Not Available [facility] (Lab) [address] [place], [address], 06/16/2022 19:09:58 06/17/19 23 06/16/2022 COMPR EHENS MICHAEL METAB OLIC PANEL albumin 4.0 g/dL 3.0-4. 4 Not Available [facility] (Lab) [address] [place], [address], 06/16/2022 19:09:58 06/17/19 23 06/16/2022 COMPR EHENS MICHAEL METAB OLIC PANEL globulin 3.4 g/dL 2.6-4. 2 Not Available [facility] (Lab) [address] [place], [address], 06/16/2022 19:09:58 06/17/19 23 06/16/2022 COMPR EHENS MICHAEL METAB OLIC PANEL A/G ratio 1.2 ratio 1.0-2. 0 Not Available [facility] (Lab) [address] [place], [address], 06/16/2022 19:09:58 06/17/19 23 06/16/2022 LIPID PANEL cholesterol 178 mg/dL 140-19 9 NIH LALIT NSUS RECOM MENDA TION FOR HELEN STERO L: ADULT CHILD LOW RISK: <200 <170 BORDE RLINE : <200- 239 ----- HIGH RISK: >240 >200 Not Available [facility] (Lab) [address] [place], [address], 06/16/2022 19:10:03 06/17/1906/16/2022 LIPID PANEL triglyceride s 71 mg/dL 0-150 NIH LALIT NSUS REPOR T RECOM MENDA TION FOR TRIGL YCERI CHEIKH: ADULT CHILD LOW RISK: <150 ----- BODER LINE: 150-1 99 ----- HIGH RISK: >200 ----- Not Available [facility] (Lab) [address] [place], [address], 06/16/2022 19:10:03 04/0306/16/2022 LIPID PANEL HDL cholesterol 63 mg/dL 40- Not Available [facility] (Lab) [address] [place], [address], 06/16/2022 19:10:03 06/17/19 23 06/16/2022 LIPID PANEL [...] WILL NOT BE REPOR PATSY. Not Available [facility] (Lab) [address] [place], [address], 06/16/2022 19:10:03 06/17/1906/16/2022 VITAM IN D 25-HY DROXY vd25oh 68.3 NG/mL 30-100 Vitam in D Statu s: Defic ient: <20 ng/mL Insuf ficie nt: 20-29 ng/mL Suffi cient : 30-10 0 ng/mL Not Available [facility] (Lab) [address] [place], [address], 06/16/2022 19:23:07 06/17/1906/16/2022 TSH W/REF SEGUNDO FT4 TSH with reflex free T4 2.010 uIU/m L 0.465- 4.680 Not Available [facility] (Lab) [address] [place], [address], 06/16/2022 19:23:22 02/11/20 23 02/10/2023 CBC/C OMPLE TE BLD COUNT W/DIF F white blood cells 12.6 x10'3 /uL 4.2-10 .8 high Not Available [facility] (Lab) [address] [place], [address], 02/10/2023 17:09:48 02/11/20 23 02/10/2023 CBC/C OMPLE TE BLD COUNT W/DIF F red blood cells 4.13 x10'6 /uL 3.80-5 .20 Not Available [facility] (Lab) [address] [place], [address], 02/10/2023 17:09:48 02/11/20 23 02/10/2023 CBC/C OMPLE TE BLD COUNT W/DIF F hemoglobin 13.3 g/dL 12.0-1 5.6 Not Available [facility] (Lab) [address] [place], [address], 02/10/2023 17:09:48 02/11/20 23 02/10/2023 CBC/C OMPLE TE BLD COUNT W/DIF F hematocrit 40.9 % 35.7-4 5.7 Not Available [facility] (Lab) [address] [place], [address], 02/10/2023 17:09:48 02/11/20 23 02/10/2023 CBC/C OMPLE TE BLD COUNT W/DIF F mean red cell volume 99.0 fL 82.0-9 9.0 Not Available [facility] (Lab) [address] [place], [address], 02/10/2023 17:09:48 02/11/20 23 02/10/2023 CBC/C OMPLE TE BLD COUNT W/DIF F mean red cell hemoglobin 32.2 pg 27.0-3 3.0 Not Available [facility] (Lab) [address] [place], [address], 02/10/2023 17:09:48 02/11/20 23 02/10/2023 CBC/C OMPLE TE BLD COUNT W/DIF F mean RBC HGB concentratio n 32.5 g/dL 31.0-3 6.0 Not Available [facility] (Lab) [address] [place], [address], 02/10/2023 17:09:48 02/11/20 23 02/10/2023 CBC/C OMPLE TE BLD COUNT W/DIF F red cell distribution width 13.2 % 11.8-1 5.5 Not Available [facility] (Lab) [address] [place], [address], 02/10/2023 17:09:48 02/11/20 23 02/10/2023 CBC/C OMPLE TE BLD COUNT W/DIF F platelets 437 x10'3 /uL 150-40 0 high Not Available [facility] (Lab) [address] [place], [address], 02/10/2023 17:09:48 02/11/20 23 02/10/2023 CBC/C OMPLE TE BLD COUNT W/DIF F mean platelet volume 9.4 fL 9.0-12 .4 Not Available [facility] (Lab) [address] [place], [address], 02/10/2023 17:09:48 02/11/20 23 02/10/2023 CBC/C OMPLE TE BLD COUNT W/DIF F neutrophils 69.3 % 39.0-7 2.0 Not Available [facility] (Lab) [address] [place], [address], 02/10/2023 17:09:48 02/11/20 23 02/10/2023 CBC/C OMPLE TE BLD COUNT W/DIF F lymphocytes 23.2 % 16.0-4 7.0 Not Available [facility] (Lab) [address] [place], [address], 02/10/2023 17:09:48 02/11/20 23 02/10/2023 CBC/C OMPLE TE BLD COUNT W/DIF F monocytes 5.9 % 5.0-12 .0 Not Available [facility] (Lab) [address] [place], [address], 02/10/2023 17:09:48 02/11/20 23 02/10/2023 CBC/C OMPLE TE BLD COUNT W/DIF F eosinophils 0.8 % 1.0-7. 0 low Not Available [facility] (Lab) [address] [place], [address], 02/10/2023 17:09:48 02/11/20 23 02/10/2023 CBC/C OMPLE TE BLD COUNT W/DIF F basophils 0.5 % 0.0-2. 0 Not Available [facility] (Lab) [address] [place], [address], 02/10/2023 17:09:48 02/11/20 23 02/10/2023 CBC/C OMPLE TE BLD COUNT W/DIF F immature granulocytes 0.3 % 0.00-0 .50 Not Available [facility] (Lab) [address] [place], [address], 02/10/2023 17:09:48 02/11/20 23 02/10/2023 CBC/C OMPLE TE BLD COUNT W/DIF F neutrophils, absolute count 8.74 x10'3 /uL 1.5-8. 0 high Not Available [facility] (Lab) [address] [place], [address], 02/10/2023 17:09:48 02/11/20 23 02/10/2023 CBC/C OMPLE TE BLD COUNT W/DIF F lymphocytes, absolute count 2.92 x10'3 /uL 1.07-3 .43 Not Available [facility] (Lab) [address] [place], [address], 02/10/2023 17:09:48 02/11/20 23 02/10/2023 CBC/C OMPLE TE BLD COUNT W/DIF F monocytes, absolute count 0.75 x10'3 /uL 0.29-0 .99 Not Available [facility] (Lab) [address] [place], [address], 02/10/2023 17:09:48 02/11/20 23 02/10/2023 CBC/C OMPLE TE BLD COUNT W/DIF F eosinophils, absolute count 0.10 x10'3 /uL 0.02-0 .53 Not Available [facility] (Lab) [address] [place], [address], 02/10/2023 17:09:48 02/11/20 23 02/10/2023 CBC/C OMPLE TE BLD COUNT W/DIF F basophils, absolute count 0.06 x10'3 /uL 0.01-0 .08 Not Available [facility] (Lab) [address] [place], [address], 02/10/2023 17:09:48 02/11/20 23 02/10/2023 CBC/C OMPLE TE BLD COUNT W/DIF F immature granulocytes ,absolute 0.04 x10'3 /uL 0.00-0 .05 Not Available [facility] (Lab) [address] [place], [address], 02/10/2023 17:09:48 02/11/20 23 02/10/2023 CBC/C OMPLE TE BLD COUNT W/DIF F nucleated red blood cells 0.0 % -0 Not Available [facility] (Lab) [address] [place], [address], 02/10/2023 17:09:48 02/11/20 23 02/10/2023 CBC/C OMPLE TE BLD COUNT W/DIF F NRBC# 0.00 x10'3 /uL Not Available [facility] (Lab) [address] [place], [address], 02/10/2023 17:09:48 02/11/20 23 02/10/2023 VITAM IN D 25-HY DROXY vd25oh 84.7 NG/mL 30-100 Vitam in D Statu s: Defic ient: <20 ng/mL Insuf ficie nt: 20-29 ng/mL Suffi cient : 30-10 0 ng/mL Not Available [facility] (Lab) [address] [place], [address], 02/10/2023 17:17:24 02/11/20 23 02/10/2023 COMPR EHENS MICHAEL METAB OLIC PANEL sodium 134 mmol/ L 137-14 5 low Not Available [facility] (Lab) [address] [place], [address], 02/10/2023 17:19:48 02/11/20 23 02/10/2023 COMPR EHENS MICHAEL METAB OLIC PANEL potassium 4.4 mmol/ L 3.5-5. 1 Not Available [facility] (Lab) [address] [place], [address], 02/10/2023 17:19:48 02/11/20 23 02/10/2023 COMPR EHENS MICHAEL METAB OLIC PANEL chloride 98 mmol/ L 98-107 Not Available [facility] (Lab) [address] [place], [address], 02/10/2023 17:19:48 02/11/20 23 02/10/2023 COMPR EHENS MICHAEL METAB OLIC PANEL carbon dioxide 28 mmol/ L 22-30 Not Available [facility] (Lab) [address] [place], [address], 02/10/2023 17:19:48 02/11/20 23 02/10/2023 COMPR EHENS MICHAEL METAB OLIC PANEL anion gap 12.4 mmol/ L 14-22 low Not Available [facility] (Lab) [address] [place], [address], 02/10/2023 17:19:48 11/2802/10/2023 COMPR EHENS MICHAEL METAB OLIC PANEL glucose 93 mg/dL 70-99 Not Available [facility] (Lab) [address] [place], [address], 02/10/2023 17:19:48 02/11/20 23 02/10/2023 COMPR EHENS MICHAEL METAB OLIC PANEL BUN 8 mg/dL 8-19 Not Available [facility] (Lab) [address] [place], [address], 02/10/2023 17:19:48 02/11/20 23 02/10/2023 COMPR EHENS MICHAEL METAB OLIC PANEL creatinine 0.83 mg/dL 0.66-1 .25 Not Available [facility] (Lab) [address] [place], [address], 02/10/2023 17:19:48 02/11/20 23 02/10/2023 COMPR EHENS MICHAEL METAB OLIC PANEL GFR >60 Refer ence Range : [place] ge GFR Healt hy Adult : >60 [...] or ethni c subgr oups, such as [facility] nics. Outsi de the valid ated skye [...] calcu lator is avail able on the [facility] websi te: [email or web address] :[email or web address] [email or web address] rg/pr ofess ional s/kdo qi/gf r_cal culat or Not Available [facility] (Lab) [address] [place], [address], 02/10/2023 17:19:48 02/11/20 23 02/10/2023 COMPR EHENS MICHAEL METAB OLIC PANEL alkaline phosphatase 52 U/L 38-[address] [facility] (Lab) [address] [place], [address], 02/10/2023 17:19:48 02/11/20 23 02/10/2023 COMPR EHENS MICHAEL METAB OLIC PANEL alanine aminotransfe rase 12 U/L 0-35 Not Available [facility] (Lab) [address] [place], [address], 02/10/2023 17:19:48 02/11/20 23 02/10/2023 COMPR EHENS MICHAEL METAB OLIC PANEL aspartate aminotransfe rase 21 U/L 15-37 Not Available [facility] (Lab) [address] [place], [address], 02/10/2023 17:19:48 02/11/20 23 02/10/2023 COMPR EHENS MICHAEL METAB OLIC PANEL bilirubin, total 0.40 mg/dL 0.20-1 .30 Not Available [facility] (Lab) [address] [place], [address], 02/10/2023 17:19:48 02/11/20 23 02/10/2023 COMPR EHENS MICHAEL METAB OLIC PANEL calcium 9.8 mg/dL 8.4-10 .2 Not Available [facility] (Lab) [address] [place], [address], 02/10/2023 17:19:48 02/11/20 23 02/10/2023 COMPR EHENS MICHAEL METAB OLIC PANEL total protein 8.1 g/dL 6.3-8. 2 Not Available [facility] (Lab) [address] [place], [address], 02/10/2023 17:19:48 02/11/20 23 02/10/2023 COMPR EHENS MICHAEL METAB OLIC PANEL albumin 4.2 g/dL 3.0-4. 4 Not Available [facility] (Lab) [address] [place], [address], 02/10/2023 17:19:48 02/11/20 23 02/10/2023 COMPR EHENS MICHAEL METAB OLIC PANEL globulin 3.9 g/dL 2.6-4. 2 Not Available [facility] (Lab) [address] [place], [address], 02/10/2023 17:19:48 02/11/20 23 02/10/2023 COMPR EHENS MICHAEL METAB OLIC PANEL A/G ratio 1.1 ratio 1.0-2. 0 Not Available [facility] (Lab) [address] [place], [address], 02/10/2023 17:19:48 02/11/20 23 02/10/2023 LIPID PANEL cholesterol 199 mg/dL 140-19 9 [facility] LALIT NSUS RECOM MENDA TION FOR HELEN STERO L: ADULT CHILD LOW RISK: <200 <170 BORDE RLINE : <200- 239 ----- HIGH RISK: >240 >200 Not Available [facility] (Lab) [address] [place], [address], 02/10/2023 17:19:58 02/11/2002/10/2023 LIPID PANEL triglyceride s 95 mg/dL 0-150 NIH LALIT NSUS REPOR T RECOM MENDA TION FOR TRIGL YCERI CHEIKH: ADULT CHILD LOW RISK: <150 ----- BODER LINE: 150-1 99 ----- HIGH RISK: >200 ----- Not Available [facility] (Lab) [address] [place], [address], 02/10/2023 17:19:58 02/11/20 23 02/10/2023 LIPID PANEL HDL cholesterol 69 mg/dL 40- Not Available [facility] (Lab) [address] [facility] [place], [address], 02/10/2023 17:19:58 02/11/20 23 02/10/2023 LIPID PANEL [...] WILL NOT BE REPOR PATSY. Not Available [facility] (Lab) [address] [place], [address], 02/10/2023 17:19:58 03/12/20 23 03/12/2023 CBC/C OMPLE TE BLD COUNT W/DIF F white blood cells 14.0 x10'3 /uL 4.2-10 .8 high Not Available [facility] (Lab) [address] [place], [address], 03/12/2023 15:55:00 03/12/20 23 03/12/2023 CBC/C OMPLE TE BLD COUNT W/DIF F red blood cells 4.07 x10'6 /uL 3.80-5 .20 Not Available [facility] (Lab) [address] [place], [address], 03/12/2023 15:55:00 03/12/20 23 03/12/2023 CBC/C OMPLE TE BLD COUNT W/DIF F hemoglobin 13.2 g/dL 12.0-1 5.6 Not Available [facility] (Lab) [address] [place], [address], 03/12/2023 15:55:00 03/12/20 23 03/12/2023 CBC/C OMPLE TE BLD COUNT W/DIF F hematocrit 40.5 % 35.7-4 5.7 Not Available [facility] (Lab) [address] [place], [address], 03/12/2023 15:55:00 03/12/20 23 03/12/2023 CBC/C OMPLE TE BLD COUNT W/DIF F mean red cell volume 99.5 fL 82.0-9 9.0 high Not Available [facility] (Lab) [address] [place], [address], 03/12/2023 15:55:00 03/12/20 23 03/12/2023 CBC/C OMPLE TE BLD COUNT W/DIF F mean red cell hemoglobin 32.4 pg 27.0-3 3.0 Not Available [facility] (Lab) [address] [place], [address], 03/12/2023 15:55:00 03/12/20 23 03/12/2023 CBC/C OMPLE TE BLD COUNT W/DIF F mean RBC HGB concentratio n 32.6 g/dL 31.0-3 6.0 Not Available [facility] (Lab) [address] [place], [address], 03/12/2023 15:55:00 03/12/20 23 03/12/2023 CBC/C OMPLE TE BLD COUNT W/DIF F red cell distribution width 13.5 % 11.8-1 5.5 Not Available [facility] (Lab) [address] [place], [address], 03/12/2023 15:55:00 03/12/20 23 03/12/2023 CBC/C OMPLE TE BLD COUNT W/DIF F platelets 415 x10'3 /uL 150-40 0 high Not Available [facility] (Lab) [address] [place], [address], 03/12/2023 15:55:00 03/12/20 23 03/12/2023 CBC/C OMPLE TE BLD COUNT W/DIF F mean platelet volume 9.5 fL 9.0-12 .4 Not Available [facility] (Lab) [address] [place], [address], 03/12/2023 15:55:00 03/12/20 23 03/12/2023 CBC/C OMPLE TE BLD COUNT W/DIF F neutrophils 72.6 % 39.0-7 2.0 high Not Available [facility] (Lab) [address] [place], [address], 03/12/2023 15:55:00 03/12/20 23 03/12/2023 CBC/C OMPLE TE BLD COUNT W/DIF F lymphocytes 19.1 % 16.0-4 7.0 Not Available [facility] (Lab) [address] [place], [address], 03/12/2023 15:55:00 03/12/20 23 03/12/2023 CBC/C OMPLE TE BLD COUNT W/DIF F monocytes 6.9 % 5.0-12 .0 Not Available [facility] (Lab) [address] [place], [address], 03/12/2023 15:55:00 03/12/20 23 03/12/2023 CBC/C OMPLE TE BLD COUNT W/DIF F eosinophils 0.6 % 1.0-7. 0 low Not Available [facility] (Lab) [address] [place], [address], 03/12/2023 15:55:00 03/12/20 23 03/12/2023 CBC/C OMPLE TE BLD COUNT W/DIF F basophils 0.4 % 0.0-2. 0 Not Available [facility] (Lab) [address] [place], [address], 03/12/2023 15:55:00 03/12/20 23 03/12/2023 CBC/C OMPLE TE BLD COUNT W/DIF F immature granulocytes 0.4 % 0.00-0 .50 Not Available [facility] (Lab) [address] [place], [address], 03/12/2023 15:55:00 03/12/20 23 03/12/2023 CBC/C OMPLE TE BLD COUNT W/DIF F neutrophils, absolute count 10.14 x10'3 /uL 1.5-8. 0 high Not Available [facility] (Lab) [address] [place], [address], 03/12/2023 15:55:00 03/12/20 23 03/12/2023 CBC/C OMPLE TE BLD COUNT W/DIF F lymphocytes, absolute count 2.67 x10'3 /uL 1.07-3 .43 Not Available [facility] (Lab) [address] [place], [address], 03/12/2023 15:55:00 03/12/20 23 03/12/2023 CBC/C OMPLE TE BLD COUNT W/DIF F monocytes, absolute count 0.97 x10'3 /uL 0.29-0 .99 Not Available [facility] (Lab) [address] [place], [address], 03/12/2023 15:55:00 03/12/20 23 03/12/2023 CBC/C OMPLE TE BLD COUNT W/DIF F eosinophils, absolute count 0.08 x10'3 /uL 0.02-0 .53 Not Available [facility] (Lab) [address] [place], [address], 03/12/2023 15:55:00 03/12/20 23 03/12/2023 CBC/C OMPLE TE BLD COUNT W/DIF F basophils, absolute count 0.05 x10'3 /uL 0.01-0 .08 Not Available [facility] (Lab) [address] [place], [address], 03/12/2023 15:55:00 03/12/20 23 03/12/2023 CBC/C OMPLE TE BLD COUNT W/DIF F immature granulocytes ,absolute 0.06 x10'3 /uL 0.00-0 .05 high Not Available [facility] (Lab) [address] [place], [address], 03/12/2023 15:55:00 03/12/20 23 03/12/2023 CBC/C OMPLE TE BLD COUNT W/DIF F nucleated red blood cells 0.0 % -0 Not Available [facility] (Lab) [address] [place], [address], 03/12/2023 15:55:00 03/12/20 23 03/12/2023 CBC/C OMPLE TE BLD COUNT W/DIF F NRBC# 0.00 x10'3 /uL Not Available [facility] (Lab) [address] [place], [address], 03/12/2023 15:55:00 09/06/19 23 09/05/2022 MAMMO , scree nithya, bilat eral No observ ation record ed. [email or web address] [facility] [address], [place], [address], 09/09/2022 10:56:10 Result Notes None recorded. Problems Name Problem SNOMED Code Status Onset Date Resolution Date Notes Provider Name and Address Organization Details Recorded Time Vitamin D deficiency 12735486 Active 2022 Not Available [facility] 4 04:10:23 Osteoporos is 18398343 Active 2022 Not Available [facility] 4 04:10:23 Nicotine dependence with current use 738879934 Active 2022 Not Available [facility] 4 04:10:23 Microscopi c hematuria 185827981 Active 2022 Not Available [facility] 4 04:10:23 Allergic rhinitis 27410070 Active 2022 Not Available [facility] 4 04:10:23 Sciatica 67621330 Active 2022 Not Available [facility] 4 04:10:23 Coronary atheroscle rosis 252209774 Active 2022 Not Available [facility] 4 04:10:23 Pain of bilateral hip joints 6343364920781 9100 Active 2022 Not Available [facility] 4 04:10:23 Nicotine dependence 62316828 Active 2022 Not Available [facility] 4 04:10:23 Sciatica 56686548 Active 2022 Not Available [facility] 4 04:10:23 Hemorrhoid s 34946841 Active 2022 Not Available [facility] 4 04:10:23 Leukocytos is 897869544 Active 2022 Not Available [facility] 4 04:10:23 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 Not Available [facility] 4 04:10:23 Anxiety disorder 770640126 Active Not Available [facility] 4 04:10:23 Low back pain 694847507 Active 2017 Not Available [facility] 4 04:10:23 Severe chronic obstructiv e pulmonary disease 002856952 Active 2019 Not Available [facility] 4 04:10:23 Hypoxia 896401776 Active 2019 Not Available [facility] 4 04:10:23 Osteoarthr itis 768547241 Active Not Available [facility] 4 04:10:23 Bronchioli tis 8744036 Active Not Available [facility] 4 04:10:23 Hyperlipid emia 99412919 Active Not Available [facility] 4 04:10:23 Dyspnea on exertion 23551377 Active 2021 Not Available [facility] 4 04:10:23 Otitis media 80315549 Active Not Available [facility] 4 04:10:23 Thrombocyt osis 1740769 Active Not Available [facility] 4 04:10:23 Rhinitis 93964537 Active 2017 Not Available [facility] 4 04:10:23 Posterior rhinorrhea 44905324 Active 2021 Not Available [facility] 4 04:10:23 Hyponatrem ia 44353162 Active Not Available [facility] 4 04:10:23 Eczema of external auditory canal 99290052 Active 2021 Not Available [facility] 4 04:10:23 Problem Notes None recorded. Procedures Surgical History Date Name Laterality Status Provider Name and Address Organization Details Recorded Time 10/15/19 23 Medicare Wellness CPT Code, subsequent completed Tere Zendejas, AUTOMOTIVE PRODUCT ENGINE[employer]-C [address] [facility], [facility] [address], [place], [address], [facility] [employer] [facility] 10/14/2022 14:23:51 02/03/20 20 Most Recent Bone Density completed Not Available [facility] 05/14/2022 04:41:58 03/30/19 19 Date of Last Colonoscopy completed Not Available [facility] 05/14/2022 04:41:58 Breast Biopsy completed Not Available [facility] 05/14/2022 04:42:01 procedure on facial bone completed Not Available [facility] 05/14/2022 04:42:01 Imaging Results None recorded. Procedure Notes None recorded. Medical Equipment None Reported. Allergies Allergen ID Allergen Name Allergen Category Reaction Reaction Severity Criticality Documentation Date Start Date Code Code System Note Provider Name and Address Organization Details Recorded Time 7945 Product containin g penicilli n (product) medicatio n Not available Not available Not available 05/14/2022 42582 8001 SNOMED Not Available [facility] 3 05:03:16 7946 ibuprofen medicatio n Not available Not available Not available 05/14/2022 5640 RxNorm Not Available [facility] 3 05:03:16 7947 codeine medicatio n Not available Not available Not available 05/14/2022 2670 RxNorm Not Available [facility] 3 05:03:16 7948 aspirin medicatio n Not available Not available Not available 05/14/2022 1191 RxNorm Not Available [facility] 3 05:03:16 7949 caffeine food,medi cation Not available Not available Not available 05/14/2022 1886 RxNorm Not Available [facility] 3 05:03:16 7950 Advil medicatio n Not available Not available Not available 05/14/2022 95881 0 RxNorm pt is unsur e if she has an aller gy to this Not Available [facility] 3 05:03:16 Medications Name Sig Start Date [...] Updated DateTime 3 157.48 cm 17 kg/m2 82425.0 9 g 97.9 [degF] 94 /min 96 % 96 % 114 mm[Hg] 72 mm[Hg] Kirsten Subramanian MA [facility] [employer] [facility] [employer] 3 14:04:48 Date Recorded Body height Body mass index (BMI) Body weight Heart rate Oxygen saturation Oxygen saturation in Arterial blood by Pulse oximetry Systolic blood pressure Diastolic blood pressure Provider Name and Address Organization Details Last Updated DateTime 3 157.48 cm 17.4 kg/m2 27317.2 8 g 91 /min 95 % 95 % 118 mm[Hg] 72 mm[Hg] Abimbola Montesinos [employer] [facility] [employer] 3 14:20:34 Date Recorded Body height Body mass index (BMI) Body weight Body temperature Heart rate Oxygen saturation Oxygen saturation in Arterial blood by Pulse oximetry Systolic blood pressure Diastolic blood pressure Provider Name and Address Organization Details Last Updated DateTime 3 157.48 cm 16.8 kg/m2 01774.5 g 97.9 [degF] 102 /min 96 % 96 % 116 mm[Hg] 72 mm[Hg] Kirsten Subramanian MA [facility] [employer] [facility] [employer] 3 13:57:41 Date Recorded Body height Body mass index (BMI) Body weight Body temperature Heart rate Oxygen saturation Oxygen saturation in Arterial blood by Pulse oximetry Systolic blood pressure Diastolic blood pressure Provider Name and Address Organization Details Last Updated DateTime 3 157.48 cm 16.6 kg/m2 24380.9 1 g 98.7 [degF] 104 /min 96 % 96 % 114 mm[Hg] 74 mm[Hg] Kirsten Subramanian MA [facility] [employer] [facility] [employer] [facility] 3 14:31:05 Date Recorded Body mass index (BMI) Body height Oxygen saturation Oxygen saturation in Arterial blood by Pulse oximetry Heart rate Body temperature Body weight Systolic blood pressure Diastolic blood pressure Provider Name and Address Organization Details Last Updated DateTime 2 17.7 kg/m2 157.48 cm 91 % 91 % 102 /min 96.7 [degF] 91368.4 6 g 120 mm[Hg] 70 mm[Hg] Not Available [facility] 3 04:44:33 Social History Question Answer Notes LastModified by Organization Details LastModified Time Tobacco Smoking Status Current Some Day Smoker Not Available [facility] 05/14/2022 04:19:36 Do You Have An Advance Directive? Yes MIGRATION.0301 [id number] Information not available 05/14/2022 Are You Blind Or Do You Have Difficulty Seeing? No MIGRATION.0301 035553 Information not available 05/14/2022 What Is Your Level Of Caffeine Consumption? None MIGRATION.0301 024427 Information not available 05/14/2022 How Much Tobacco Do You Chew? None MIGRATION.0301 173499 Information not available 05/14/2022 In The 14 Days Before Symptom Onset, Have You Had Close Contact With A Laboratory-confi rmed COVID-19 While That Case Was Ill? No MIGRATION.0301 380501 Information not available 05/14/2022 In The 14 Days Before Symptom Onset, Have You Had Close Contact With A Person Who Is Under Investigation For COVID-19 While That Person Was Ill? No MIGRATION.0301 064818 Information not available 05/14/2022 Are You Deaf Or Do You Have Serious Difficulty Hearing? No MIGRATION.0301 180041 Information not available 05/14/2022 What Type Of Diet Are You Following? REGULAR MIGRATION.0301 777126 Information not available 05/14/2022 Which Illicit Or Recreational Drugs Have You Used? None MIGRATION.0301 720981 Information not available 05/14/2022 Have There Been Any Changes To Your Family Or Social Situation? No MIGRATION.0301 600526 Information not available 05/14/2022 What Is The Fluoride Status Of Your Home? Unknown MIGRATION.0301 181100 Information not available 05/14/2022 Do You Use Insect Repellent Routinely? No MIGRATION.0301 999305 Information not available 05/14/2022 Where Do You Live? [place] MIGRATION.0301 800536 Information not available 05/14/2022 Do You Have A Medical Power Of Preschool Adviser? Yes MIGRATION.0301 775000 Information not available 05/14/2022 What Was The Date Of Your Most Recent Tobacco Screening? 02/10/2023 [email or web address] Information not available 02/10/2023 What Is Your Relationship Status? MIGRATION.0301 [id number] Information not available 05/14/2022 Do You Use Your Seat Belt Or Car Seat Routinely? Yes MIGRATION.0301 519364 Information not available 05/14/2022 Do You Have Smoke And Carbon Monoxide Detectors In Your Home? Yes MIGRATION.0301 246904 Information not available 05/14/2022 Are You Passively Exposed To Smoke? Yes MIGRATION.0301 906716 Information not available 05/14/2022 Are There Any Smokers In Your House? Yes MIGRATION.0301 784768 Information not available 05/14/2022 How Much Tobacco Do You Smoke? 1 PPD MIGRATION.0301 629272 Information not available 05/14/2022 Do You Use Sunscreen Routinely? No MIGRATION.0301 046133 Information not available 05/14/2022 Have You Recently Traveled Abroad? No MIGRATION.0301 352052 Information not available 05/14/2022 Do You Have Difficulty Walking Or Climbing Stairs? Yes Due To Hips MIGRATION.0301 594754 Information not available 05/14/2022 Do You Have Any Dietary Restrictions? No MIGRATION.0301 474523 Information not available 05/14/2022 Sex: Unknown Functional Status Question Answer Note LastModified by [employer] ion Details LastModified Time Do you use any illicit or recreational drugs? No MIGRATION.056290 1782 Information not available 05/14/2022 Do you or have you ever used any other forms of tobacco or nicotine? No MIGRATION.448384 6320 Information not available 05/14/2022 What is your level of alcohol consumption? None MIGRATION.794943 7997 Information not available 05/14/2022 Do you or have you ever used smokeless tobacco? Never used smokeless tobacco MIGRATION.686114 6387 Information not available 05/14/2022 Do you have transportation difficulties? No MIGRATION.944637 5348 Information not available 05/14/2022 Are you able to walk? YESWOREST MIGRATION.852327 6512 Information not available 05/14/2022 Do you have difficulty doing errands alone? No MIGRATION.087135 3162 Information not available 05/14/2022 Are you able to care for yourself? Yes MIGRATION.848716 8569 Information not available 05/14/2022 What is your occupation? retired MIGRATION.083393 1565 Information not available 05/14/2022 Do you have difficulty dressing or bathing? No MIGRATION.038448 3141 Information not available 05/14/2022 Do you or have you ever used e-cigarettes or vape? Never used electronic cigarettes MIGRATION.407620 1196 Information not available 05/14/2022 What is your exercise level? Occasional MIGRATION.895804 5886 Information not available 05/14/2022 Mental Status Question Answer Note LastModified by Organizat ion Details LastModified Time Do you feel stressed (tense, restless, nervous, or anxious, or unable to sleep at night)? [id number] MIGRATION.[id number] 26 Information not available 05/14/2022 Do you have difficulty concentrating, remembering or making decisions? No MIGRATION.40095234 26 Information not available 05/14/2022 Family History Relationship Description Onset Age of this Age Resolved Age Notes LastModified by Organization Details LastModified Time Mother Hyperlipidem ia MIGRATION.204 [id number] Not available 05/14/2022 04:42:05 Mother Diabetes mellitus MIGRATION.816 [id number] Not available 05/14/2022 04:42:05 Mother Hypertensive disorder MIGRATION.041 [id number] Not available 05/14/2022 04:42:05 Father Hypertensive disorder MIGRATION.333 6501642 Not available 05/14/2022 04:42:05 Father Malignant tumor of colon MIGRATION.994 4003789 Not available 05/14/2022 04:42:05 Father Heart disease MIGRATION.205 [id number] Not available 05/14/2022 04:42:05 Medical History Condition [...] ARTERY DISEASE (CAD) N ADDICTION CONCERNS N Impotence N ENDOMETRIOSIS N USE OF BLOOD THINNERS N SKIN [...] APNEA N CHICKENPOX N INFECTIOUS DISEASE N PROSTATE N HEART ARRHYTHMIA N INSOMNIA N HIGH CHOLESTEROL / HYPERLIPIDEMIA Y EYE PROBLEMS N HYPERTHYROIDISM N EDEMA N CHRONIC PAIN SYNDROME N [...] N ALZHEIMER'S DISEASE N Brain Problems N DEMENTIA N HERPES N SEIZURES/EPILEPSY N HEADACHES/MIGRAINES N VASCULAR DISEASE N PACEMAKER N Blood Disorder N DIZZINESS N HEART DISEASE/HEART PROBLEMS N KIDNEY DISEASE N MULTIPLE SCLEROSIS N CANCER: SPECIFY N CARDIAC ARRHYTHMIA N ATRIAL FIBRILLATION N Gall Stones N [...] virus, trivalent, preservative 3 completed Not Available [facility] 03/27/2023 04:10:24 Influenza, high-dose, trivalent, PF 9 completed Not Available [facility] 03/27/2023 04:10:24 Influenza, split virus, quadrivalent, preservative 9 completed Not Available [facility] 03/27/2023 04:10:23 COVID-19, mRNA, LNP-S, PF, 30 mcg/0.3 mL dose 1 completed Not Available [facility] 03/27/2023 04:10:23 Influenza, split virus, trivalent, preservative 1 completed Not Available [facility] 03/27/2023 04:10:24 COVID-19, mRNA, LNP-S, PF, 30 mcg/0.3 mL dose 1 completed Not Available [facility] 03/27/2023 04:10:23 COVID-19, mRNA, LNP-S, PF, 30 mcg/0.3 mL dose 1 completed Not Available [facility] 03/27/2023 04:10:23 Influenza, high-dose, quadrivalent, PF 0 completed Not Available [facility] 03/27/2023 04:10:23 Influenza, split virus, quadrivalent, preservative 0 completed Not Available [facility] 03/27/2023 04:10:23 pneumococcal polysaccharide PPV23 0 completed Not Available [facility] 03/27/2023 04:10:24 Pneumococcal conjugate PCV 13 9 completed Not Available [facility] 03/27/2023 04:10:24 Influenza, split virus, quadrivalent, preservative 8 completed Not Available [facility] 03/27/2023 04:10:23 influenza, unspecified formulation 7 completed Not Available [facility] 03/27/2023 04:10:24 Influenza, high-dose, trivalent, PF 6 completed Not Available [facility] 03/27/2023 04:10:24 Influenza, high-dose, quadrivalent, PF 2 completed Not Available [facility] 03/27/2023 04:10:23 Influenza, high-dose, trivalent, PF 6 completed Not Available [facility] 03/27/2023 04:10:24 Influenza, high-dose, trivalent, PF 4 completed Not Available [facility] 03/27/2023 04:10:24 Influenza, high-dose, quadrivalent, PF 3 completed EDUARDO [facility] 01/05/2023 14:18:16 Past Encounters Encounter ID Performer Location Encounter Start Date Encounter Closed Date Diagnosis/Indication Diagnosis SNOMED-CT Code Diagnosis ICD10 Code Diagnosis Note [id number] [facility] [place] [address] [place] [address] 09/07/2020 00:00:00 09/07/2020 16:32:12 [id number] Jose Luis bailey MD [facility] Internal Med [facility] [address] [facility], [facility] [address] [place] [address] 09/14/2020 00:00:00 09/14/2020 15:44:54 [id number] [facility] E[facility] [place] [address] [place] [address] 10/25/2020 00:00:00 10/25/2020 14:26:06 [id number] [facility] [place] [address] [place] [address] 01/18/2021 00:00:00 01/18/2021 15:43:37 [id number] Jose Luis bailey MD [facility] Internal Med [place] [address] [facility] [address] [place] [address] 01/25/2021 00:00:00 01/25/2021 16:04:32 [id number] [facility] [place] [address] [facility] [place] [address] 05/21/2021 00:00:00 05/21/2021 16:12:54 [id number] Jose Luis bailey MD [facility] [place] [address] [facility] [address] [place] [address] 07/16/2021 00:00:00 07/16/2021 17:24:17 [id number] [facility] [place] [address] [facility] [place] [address] 08/16/2021 00:00:00 08/16/2021 15:05:22 [id number] Jose Luis bailey MD [facility] Internal Med [place] [address] [facility] [address] [place] [address] 12/16/2021 00:00:00 12/16/2021 15:06:13 [id number] JANINA LangP- [facility] [place] [address] [place] [address] 02/12/2022 00:00:00 02/12/2022 16:55:21 [id number] Jose Luis bailey MD [facility] Internal Med [facility] [address] [facility] [address] [place] [address] 06/16/2022 13:56:21 06/16/2022 14:22:35 Hyperlipidemia 25866420 E78.5 no meds, lifestyle measuresch mendy labs Vitamin D deficiency 347 80797 E55.9 on OTC supplement Severe chr onic obstructive pulmonary disease 083310282 J44.9 follows pulmonolog y- Aydee [place] Anororefus es O2 Sciatica 99083939 M54.30 follows pain management on gabapentin Osteoporosis 95249690 M8 1.0 refuses meds, she is aware of risks of untreated osteoporos is including risk of fracture and deathweigh t bearing exercise recommende d, on OTC calcium and vitamin D3 Nicotine dependence 5629 4008 F17.200 1 min spent with patient discussing risks, cessation options. Patient encouraged to quit. Coronary atherosclerosis 883595833 I25.10 incidental finding on LDCT, she refuses cardiology referral Microscopic hematuria 19 1832976 R31.29 Follows urology- Dr. Chenqcyst oscopy was negative Pain of bi lateral hip joints [id number] 2516685 M25.551 M25.552 follows pain management as abovethey have recommende d injections - she declinessh e also declines PT Allergic rhinitis 732310 04 J30.9 on singulair, flonaseCal l office if any change in mood or behavior Screening mammography 24 992984 Z12.31 Hemorrhoids 04807375 K64 .9 On Anusol p.r.n. [id number] Aydee Patel, [facility] [place] [address] [place] [address] 08/13/2022 14:01:09 08/13/2022 14:41:23 Severe chronic obstructive pulmonary disease 486641215 J44.9 PFT testing December 2018 with severe obstructio n.FEV1:FVC ratio 47%.FEV1 30% pre BD.15% improvemen t post BD.TLC 125%.DLCO decreased. Alpha1 MM normalDecl brett any repeat testingNo oxygen needed per six minute walk testing 2019Contin ue Anoro and Albuterol. Instructed on Anoro use and techniqueD iscussed indication s for Albuterol useShe is aware of reportable signs and symptomsRT C in 6 months, PRN for concerns Traction bronchiectasis 45158343 J47.[address] chestStart flutter valve - [...] adenopathy Repeat due 12/2022 - ordered today [id number] Jose Luis bailey MD [facility] [address] [facility], [address] [place] [address] 10/14/2022 13:48:35 10/14/2022 14:28:53 Hyperlipidemia 57826017 E78.5 no meds, lifestyle measuresch mendy labs Vitamin D deficiency 347 24597 E55.9 on OTC supplement Severe chr onic obstructive pulmonary disease 586206102 J44.9 follows pulmonolog y- Aydee Cruz Anororefus es O2 Sciatica 06451397 M54.30 follows pain management on gabapentin Osteoporosis 90784106 M8 1.0 refuses meds, she is aware of risks of untreated osteoporos is including risk of fracture and deathweigh t bearing exercise recommende d, on OTC calcium and vitamin D3 Nicotine dependence 5629 4008 F17.200 1 min spent with patient discussing risks, cessation options. Patient encouraged to quit. Coronary atherosclerosis 279874440 I25.10 incidental finding on LDCT, she refuses cardiology referral Microscopic hematuria 19 6756598 R31.29 Follows urology- Dr. Chenqcyst oscopy was negative Pain of bi lateral hip joints [id number] 9880253 M25.551 M25.552 follows pain management as abovethey have recommende d injections - she declinessh e also declines PT Allergic rhinitis 506679 04 J30.9 on singulair, flonaseCal l office if any change in mood or behavior Hemorrhoids 42216942 K64 .9 On Anusol p.r.n. Adult heal th examination 260669472 Z00.00 Screening for disorder 842114777 Z13.9 [id number] Jose Luis bailey MD [facility] [address] [facility] [address] [place] [address] 02/10/2023 14:11:50 02/10/2023 14:53:11 Hyperlipidemia 09851919 E78.5 no meds, lifestyle measuresch mendy labs Vitamin D deficiency 347 23777 E55.9 on OTC supplement Severe chr onic obstructive pulmonary disease 428085954 J44.9 follows pulmonolog y- Aydee Jorgevania Anororefus es O2 Sciatica 46301460 M54.30 follows pain management on gabapentin Osteoporosis 20661308 M8 1.0 refuses meds, she is aware of risks of untreated osteoporos is including risk of fracture and deathweigh t bearing exercise recommende d, on OTC calcium and vitamin D3 Nicotine dependence 5629 4008 F17.200 1 min spent with patient discussing risks, cessation options. Patient encouraged to quit. Coronary atherosclerosis 239064963 I25.10 incidental finding on LDCT, she refuses cardiology referral Microscopic hematuria 19 7714594 R31.29 Follows urology- Dr. Chenqcyst oscopy was negative Pain of bi lateral hip joints 2867795825 0918489 M25.551 M25.552 follows pain management as abovethey have recommende d injections - she declinessh e also declines PT Allergic rhinitis 581566 04 J30.9 on singulair, flonaseCal l office if any change in mood or behavior Hemorrhoids 42712068 K64 .9 On Anusol p.r.n. Renewal of prescription 177049480 Z76.0 Health Concerns Section Related Observation LastModified by Organization Detai ls LastModified Time None Recorded Concern Status LastModified by Organization Details LastModified Time None Recorded Advance Directives Directive Y: Payers Encounter Date Sequence Insurance Name Policy Number Policy Paul Covered Member ID Paul Member ID Guarantor Name 06/16/2022 1 [place] Glendy Roblero [id number] Glendy Roblero 06/16/2022 2 [place] [id number] Glendy Roblero [id number] Glendy Roblero 08/13/2022 1 [place] Glendy Roblero [id number] Glendy Roblero 08/13/2022 2 [id number] Glendy Roblero [id number] Glendy Roblero 10/14/2022 1 [place] Glendy Roblero [id number] Glendy Roblero 10/14/2022 2 [id number] Glendy Roblero [id number] Glendy Roblero 02/10/2023 1 [place] Glendy Roblero [id number] Glendy Roblero 02/10/2023 2 [place] [id number] Glendy Roblero [id number] Glendy Roblero Notes Date Note Type [...] in he last 6 months. Aydee Patel, [employer]- [address], [address], [place], [address], [facility] 08/13/2022 16:09:58 10/14/2022 text/html Glendy presents to [facility] for follow up. She is also due [...] multivitamin, calcium, and vitamin-D. JAROD Osullivan [address], [facility] [address], [place], [address], [facility] 10/14/2022 15:30:54 02/10/2023 text/html Glendy presents to [facility] for follow-up. She has been following Aydee [...] at this time. JAROD Osullivan [address], [facility] [address], [place], [address], [facility] 02/10/2023 15:24:12 OBGyn Episode No OBEpisode recorded.
--- OUTSIDE RECORDS SUMMARY | 2024-08-18 01:34 | XMS_ITS | Data Portability ---
Author Organization [facility] Address [address] [place] [address] Care Team Providers Care Mine Supervisor Name Role Phone MARY GUDINO Primary Care Provider Unavailab le Assessment No assessment recorded. Plan of Treatment Reminders Order Date Submit Date Provider Last Modified By Organization Details Last Modified Time Details Appointments ANY 15 2024 01:00P M HARDIK Reilly Not available Not available Not available Lab TSH + free T4, serum 2024 025 [facility], [address], [place], [address], 07/19/2024 15:11:09 noninvasi ve colorecta l cancer DNA + occult blood screening , QL, stool 2024 025 [facility] ([facility]ard Orders Only), [address], [address], [place], [address], 07/31/2024 17:49:25 lipid panel, serum 2024 025 [facility], [address], [place], [address], 07/19/2024 15:11:08 hepatic function panel, serum 2024 025 [facility], [address], [place], [address], 07/19/2024 15:11:10 BMP, serum or plasma 2024 025 [facility], [address], [place], [address], 07/19/2024 15:11:11 lipid panel, serum [facility]23 [facility]24 [email or web address], [address], [place], [address], 04/01/2024 14:03:10 hepatic function panel, serum 2023 024 [email or web address], [address], [place], [address], 04/01/2024 14:03:09 BMP, serum or plasma 2023 024 [email or web address], [address], [place], [address], 04/01/2024 14:03:09 TSH + free T4, serum 2023 024 [email or web address], [address], [place], [address], 04/01/2024 14:03:10 Referral None recorded. Procedures None recorded. Surgeries None recorded. Imaging CT, abdomen + pelvis, w/ contrast 2024 025 [facility] ([facility]), [address], [place], [address], 07/28/2024 09:37:00 XR, thoracic spine, 2 view 2023 024 [facility], [address], [place], [address], 07/10/2023 07:26:35 XR, scapula [address] [facility], [address], [place], [address], 07/29/2023 13:55:35 MAMMO, screening , digital, bilateral 2023 024 [email or web address], [address], [place], [address], 03/08/2024 09:41:10 DEXA 2023 024 [email or web address], [address], [place], [address], 03/08/2024 09:41:04 Medication Orders hydrocort isone 2.5 % topical cream with perineal applicato r 2024 025 [id number], [address], [place], [place], [id number], 07/18/2024 14:17:32 Patient TargetsNo targets recorded. Patient InstructionsNo instructions recorded. Reason for Referral None Reported. Results Created Date Observation Date Name Description Value Unit Range Abnormal Flag Note LastModifiedBy Organization Detail LastModifiedTime 07/19/19 25 07/19/2024 LIPID PANEL W/ CHOL/ HDL RATIO cholesterol, total 179 mg/dL 100-19 9 Not Available [facility] ([facility]) [address] [place], [address], 07/19/2024 15:11:08 07/19/19 25 07/19/2024 LIPID PANEL W/ CHOL/ HDL RATIO triglyceride s 83 mg/dL 0-149 Not Available [facility] ([facility]) [address] [place], [address], 07/19/2024 15:11:08 07/19/19 25 07/19/2024 LIPID PANEL W/ CHOL/ HDL RATIO HDL cholesterol 73 mg/dL >39 Not Available [facility] ([facility]) [address] [place], [address], 07/19/2024 15:11:08 07/19/19 25 07/19/2024 LIPID PANEL W/ CHOL/ HDL RATIO VLDL cholesterol rubén 15 mg/dL 5-40 Not Available [facility] ([facility]) [address] [place], [address], 07/19/2024 15:11:08 07/19/19 25 07/19/2024 LIPID PANEL W/ CHOL/ HDL RATIO LDL chol calc ([facility]) 91 mg/dL 0-99 Not Available [facility] ([facility]) [address] [place], [address], 07/19/2024 15:11:08 07/19/19 25 07/19/2024 LIPID PANEL W/ CHOL/ HDL RATIO T. chol/HDL ratio 2.5 ratio 0.0-4. 4 T. Chol/ HDL Ratio Men Women 1/2 Avg.R isk 3.4 3.3 Avg.R isk 5.0 4.4 2X Avg.R isk 9.6 7.1 3X Avg.R isk 23.4 11.0 Not Available [facility] ([facility]) [address] [place], [address], 07/19/2024 15:11:08 07/19/19 25 07/19/2024 TSH+F REE T4 TSH 1.730 uIU/m L 0.450- 4.500 Not Available [facility] ([facility]) [address] [place], [address], 07/19/2024 15:11:09 07/19/19 25 07/19/2024 TSH+F REE T4 T4,free(dire ct) 1.07 NG/dL 0.82-1 .77 Not Available [facility] ([facility]) [address] [place], [address], 07/19/2024 15:11:09 07/19/19 25 07/19/2024 HEPAT IC FUNCT ION PANEL (7) protein, total 8.2 g/dL 6.0-8. 5 Not Available [facility] ([facility]) [address] [place], [address], 07/19/2024 15:11:10 07/19/19 25 07/19/2024 HEPAT IC FUNCT ION PANEL (7) albumin 4.4 g/dL 3.8-4. 8 Not Available [facility] ([facility]) [address] [facility] [place], [address], 07/19/2024 15:11:10 07/19/19 25 07/19/2024 HEPAT IC FUNCT ION PANEL (7) bilirubin, total 0.3 mg/dL 0.0-1. 2 Not Available [facility] ([facility]) [address] [facility] [place], [address], 07/19/2024 15:11:10 07/19/19 25 07/19/2024 HEPAT IC FUNCT ION PANEL (7) bilirubin, direct 0.12 mg/dL 0.00-0 .40 Not Available [facility] ([facility]) [address] [facility] [place], [address], 07/19/2024 15:11:10 07/19/19 25 07/19/2024 HEPAT IC FUNCT ION PANEL (7) alkaline phosphatase 59 IU/L 44-121 Not Available [facility] ([facility]) [address] [facility] [place], [address], 07/19/2024 15:11:10 07/19/19 25 07/19/2024 HEPAT IC FUNCT ION PANEL (7) AST (SGOT) 18 IU/L 0-40 Not Available [facility] ([facility]) [address] [facility] [place], [address], 07/19/2024 15:11:10 07/19/19 25 07/19/2024 HEPAT IC FUNCT ION PANEL (7) ALT (SGPT) 11 IU/L 0-32 Not Available [facility] ([facility]) [address] [place], [address], 07/19/2024 15:11:10 07/19/19 25 07/19/2024 BMP7+ EGFR glucose 107 mg/dL 70-99 above high normal Not Available [facility] ([facility]) [address] [place], [address], 07/19/2024 15:11:11 07/19/19 25 07/19/2024 BMP7+ EGFR BUN 9 mg/dL 8-27 Not Available [facility] ([facility]) [address] [place], [address], 07/19/2024 15:11:11 07/19/19 25 07/19/2024 BMP7+ EGFR creatinine 0.86 mg/dL 0.57-1 .00 Not Available [facility] ([facility]) [address] [facility] [place], [address], 07/19/2024 15:11:11 07/19/19 25 07/19/2024 BMP7+ EGFR eGFR 69 mL/mi n/1.7 3 >59 Not Available [facility] ([facility]) [address] [place], [address], 07/19/2024 15:11:11 07/19/19 25 07/19/2024 BMP7+ EGFR sodium 133 mmol/ L 134-14 4 below low normal Not Available [facility] ([facility]) [address] [place], [address], 07/19/2024 15:11:11 07/19/19 25 07/19/2024 BMP7+ EGFR potassium 5.1 mmol/ L 3.5-5. 2 Not Available [facility] ([facility]) [address] [place], [address], 07/19/2024 15:11:11 07/19/19 25 07/19/2024 BMP7+ EGFR chloride 94 mmol/ L 96-106 below low normal Not Available [facility] ([facility]) [address] [place], [address], 07/19/2024 15:11:11 07/19/19 25 07/19/2024 BMP7+ EGFR carbon dioxide, total 23 mmol/ L Not Available [facility] ([facility]) [address], [place], [address], 07/19/2024 15:11:11 07/26/19 25 07/25/2024 COLOG UARD cologuard result reportable POSITI VE negati ve abnormal The Colog uard Plus (TM) test was perfo rmed on this speci men. POSIT MICHAEL TEST RESUL T. A posit michael (abno rmal) Colog uard Plus resul t means the patie nt has a highe r-dank n-ave rage chanc e of havin g color ectal cance r (CRC) or preca ncer (poly ps or lesio ns that could becom e cance r). The perla l value (refe rence range ) for this assay is negat michael. A posit michael resul t shoul d be follo wed by a colon oscop y to locat e and confi rm the prese nce of cance r or preca ncer. A posit michael Colog uard Plus resul t is not a cance r diagn osis. The gera al thu nment now consi ders the colon oscop y follo wing a posit michael Colog uard Plus test resul t a cover ed preve ntive servi ce. Call [phone] for more infor matio n. A clini rubén valid ation study measu red the effec tiven ess of the Colog uard Plus test. Out of 100 patie nts testi ng posit michael: appro ximat jonas 3 patie nts will have CRC; 34 patie nts will have advan iwona preca ncer; 33 will have a non-a dvanc ed preca ncer; and 30 will have no cance r or preca ncer. TEST DESCR IPTIO N: The Colog uard Plus test is a multi -targ et stool DNA (mt-s DNA) test that salina zes DNA and hemog lobin bioma rkers in stool . It uses a propr ietar y algor ithm to quali tativ jonas detec t CRC and advan iwona preca ncer. It is FDA-a pprov ed and indic ated for use in adult s 45 years or older at avera ge risk for CRC. A posit michael (abno rmal) resul t shoul d be follo wed by a colon oscop y. Patie nts with a negat michael (norm al) resul t shoul d scree n again in 3 years . False posit michael and false negat michael resul ts may occur . The USPST F recom mends the Colog uard test as a CRC scree nithya optio n. Their model ing estim ates that scree nithya with the test every 3 years from ages 45-85 could preve nt up to 73% of CRC and avoid up to 85% of CRC s. A 1-pat ient clini rubén trial found the Colog uard Plus test effec tivel y detec ts CRC and preca ncer. The study found the test was 95% sensi tive for CRC, 43% sensi tive for advan iwona preca ncer, and had a 91% speci ficit y ([facility]ini dre Sullivan ure. Exact Scien rd Corpo ratio n. [place], [place] Visit [email or web address] dMetricscom /abou t/acc uracy -sens itivi ty-sp [facility] for more test infor matosiel n, refer avinash mann ngs, and preca ution s. Not Available [facility] (Cologuard Orders Only) [address], [place], [address], 07/31/2024 17:49:25 07/10/1907/09/2023 XR, thora cic spine , 2 view No observ ation record ed. [email or web address] [address], [place], [address], 07/14/2023 17:47:16 07/29/1907/28/2024 CT, abdom en + pelvi s, w/ contr ast No observ ation record ed. [facility] [address], [place], [address], 07/28/2024 09:37:00 Result Notes None recorded. Problems Name Problem SNOMED Code Status Onset Date Resolution Date Notes Provider Name and Address Organization Details Recorded Time Pain of bilateral hip joints 0535161042161 9100 Active 2023 HARDIK Reilly Attn: Rebeka xie,[address] [facility], [place], [address], [place] - [facility] 4 15:47:17 Chronic obstructive pulmonary disease 85554971 Active 2023 HARDIK Reilly Attn: Rebeka g,[address] [place], [address], [place] [facility] 4 15:47:18 Leukocytosi s 917182123 Active 2023 HARDIK Reilly Attn: Rebeka xie,[address] [place], [address], [place] [facility] 4 15:47:19 Hypoxemia 311882339 Active 2023 HARDIK Reilly Attn: Rebeka g,[address] [place], [address], [place] [facility] 4 15:47:22 Kyphosis deformity of spine 593199575 Active 2023 HARDIK Reilly Attn: Rebeka g,[address] [place], [address], [place] [facility] 4 15:47:24 Long-term drug therapy Active 2023 HARDIK Reilly Attn: Rebeka g,[address] [place], [address], [place] [facility] 4 15:47:30 Allergic rhinitis 68802583 Active 2023 Alison Reyna LPN null, [place] [facility] 4 10:04:29 Body mass index less than 16.5 339921007 Active 2024 EDUARDO Bauer, [place] - [facility] 5 13:58:55 Unintention al weight loss 714751240 Active 2024 HARDIK Reilly Attn: Accountin g,[address] [place], [address], [place] [facility] 5 19:31:44 External hemorrhoids 62212377 Active 2024 HARDIK Reilly Attn: Accountin g,[address] [place], [address], [place] [facility] 5 19:32:45 Problem Notes None recorded. Medical Equipment None Reported. Allergies Allergen ID Allergen Name Allergen Category Reaction Reaction Severity Criticality Documentation Date Start Date Code Code System Note Provider Name and Address Organization Details Recorded Time 777698 codeine medicatio n Not available Not available Not available 07/08/2023 2670 RxNorm EDUARDO Bauer, [place] - [facility] 4 15:25:38 228417 Product containin g penicilli n (product) medicatio n Not available Not available Not available 07/08/2023 77560 8001 SNOMED EDUARDO Bauer, [place] - [facility] 4 15:25:46 753329 ibuprofen medicatio n Not available Not available [...] Available No t Available Vitals Date Recorded Respiratory rate Oxygen saturation Oxygen saturation in Arterial blood by Pulse oximetry Systolic blood pressure Diastolic blood pressure Systolic blood pressure Diastolic blood pressure Provider Name and Address Organization Details Last Updated DateTime 4 18 /min 94 % 94 % 140 mm[Hg] 80 mm[Hg] 132 mm[Hg] 80 mm[Hg] HARDIK Reilly Attn: Rebeka xie,[address] [place], [address], [place] - [facility] 4 16:00:16 Date Recorded Body height Body mass index (BMI) Body weight Oxygen saturation Oxygen saturation in Arterial blood by Pulse oximetry Heart rate Systolic blood pressure Diastolic blood pressure Provider Name and Address Organization Details Last Updated DateTime 4 155.58 cm 16.7 kg/m2 82023.7 2 g 89 % 89 % 101 /min 130 mm[Hg] 72 mm[Hg] Kassy Roper MA [facility] 4 15:34:41 Date Recorded Body height Body mass index (BMI) Body weight Oxygen saturation Oxygen saturation in Arterial blood by Pulse oximetry Heart rate Respiratory rate Systolic blood pressure Diastolic blood pressure Provider Name and Address Organization Details Last Updated DateTime 5 155.58 cm 12.1 kg/m2 33193.4 3 g 96 % 96 % 76 /min 18 /min 122 mm[Hg] 80 mm[Hg] Kassy Roper MA [facility] 5 14:01:19 Date Recorded Body height Body mass index (BMI) Body weight Respiratory rate Oxygen saturation Oxygen saturation in Arterial blood by Pulse oximetry Heart rate Systolic blood pressure Diastolic blood pressure Provider Name and Address Organization Details Last Updated DateTime 155.58 cm 15.6 kg/m2 40110.3 5 g 18 /min 96 % 96 % 88 /min 138 mm[Hg] 88 mm[Hg] Kassy Roper MA [facility] S[facility] 15:27:13 Social History Question Answer Notes LastModified by Organizat ion Details LastModified Time Tobacco Smoking Status Current Every Day Smoker Kassy Roper MA null, [facility] 07/08/2023 15:29:20 Do You Have An Advance [...] anxious, or unable to sleep at night)? [id number] Information not available 07/08/2023 Family History Relationship Description Onset Age of this Age Resolved Age Notes LastModified by Organization Details LastModified Time Mother Hypertensive disorder [email or web address] Not available 2023 16:19:57 Mother Hypercholest erolemia [email or web address] Not available 2023 16:20:04 Mother Diabetes mellitus [email or web address] Not available 2023 16:20:10 Medical History Condition Response Coronary Artery Disease N Other N Atrial Fibrillation N High Blood Pressure N Thyroid Problems N Kidney or Bladder Problems N Depression N COPD Y Blood Clots N GI Problems N Skin Problems N Anemia N Heart Attack ([place]) N Diabetes N Anxiety Disorder N Muscle, Joint, or Bone Problems Y Seizures/Epilepsy N Acid Reflux (GERD) N Cancer Y Stroke N Allergies N Asthma N High Cholesterol N Hepatitis N Liver Disease N Headaches N Osteoporosis N Heart Failure N Gynecological History Statement/Question Response Menses Monthly N Current Control Method None Obstetrics History GPAL:G 0 P 0 0 0 0 Immunizations Vaccine Type Date Status Note Provider Nam e and Address Organization Details Recorded Time Influenza, split virus, quadrivalent, preservative 0 completed Kassy Roper [place], [place] [facility] 12/30/2023 13:59:53 Influenza, split virus, quadrivalent, preservative 8 completed Ksasy Roper [place] null, [place] [facility] 12/30/2023 [...] 13:59:53 Pneumococcal conjugate PCV 13 9 completed EDUARDO [place] [facility] 12/30/2023 13:59:53 Influenza, high-dose, trivalent, PF 4 completed [place]UARD[place] [facility] 12/30/2023 [...] PF 9 completed Kassy Roper [place] [facility] 12/30/2023 13:59:53 Influenza, high-dose, trivalent, PF 4 completed HARDIK Reilly Attn: Accounting,[address] [place], [address] 12/31/2023 14:28:21 Past Encounters Encounter ID Performer Location Encounter Start Date Encounter Closed Date Diagnosis/Indication Diagnosis SNOMED-CT Code Diagnosis ICD10 Code Diagnosis Note [id number] Alessio Patricio MD [facility] [address] [place] [address] 07/08/2023 15:05:31 07/08/2023 16:10:39 Chronic obstructive pulmonary disease 28045383 J44.9 Pulmonary is TANMAY Becerra and [facility]. Leukocytosis 725786175 D 72.[address] Brownlee and her WBC improved and she follows up in 6 months. Pain of bi lateral hip joints 4125417462 8288283 M25.551 M25.552 hx noted. sees pain management . Long-term drug therapy 519832978 Z79.899 will await records that she will bring us tomorrow. she thinks labs were done in the winter plus dr. Brownlee completed some recently. Kyphosis d eformity of spine 831998203 M40.209 check xray tspine and scapula with deformity noted on exam today Screening mammography 24 120657 Z12.31 annual mammogram due Screening for osteoporosis 087451084 Z13.820 due for DEXA screening. Hypoxemia 206585014 R09. 02 86% on room air after walking, up to 94% with rest. [id number] Alessio Patricio MD [facility] [address] [place] [address] 12/16/2023 14:38:45 12/24/2023 11:54:41 Chronic obstructive pulmonary disease 32804169 J44.9 Pulmonary is TANMAY Becerra and [facility]. Leukocytosis 380709065 D 72.[address] Brownlee and her WBC improved and she follows up in 6 months. Pain of bi lateral hip joints 7270789056 0583237 M25.551 M25.552 hx noted. sees pain management . Hypoxemia 571609353 R09. 02 86% on room air after walking, up to 94% with rest. Kyphosis d eformity of spine 974616390 M40.209 check xray tspine and scapula with deformity noted on exam today Long-term drug therapy 790356440 Z79.899 All routine labs were ordered for routine six-month evaluation Cholesterol screening 27 5904169 Z13.220 Body mass index less than 20 208418922 Z68.1 15.6 [id number] Alessio Patricio MD [facility] [place] [address] [place] [address] 12/31/2023 14:07:26 01/04/2024 15:07:00 Administration of influenza vaccine 18417459 Z23 [id number] Alessio Patricio MD [facility] [place] [address] [place] [address] 07/18/2024 13:38:14 07/18/2024 14:41:19 Body mass index less than 16.5 584186889 Z68.1 12.1 Chronic ob structive pulmonary disease 20120396 J44.9 Pulmonary is TANMAY Becerra and [facility]. Up-to-date on appoint t with him Leukocytosis 397317487 D 72.[address] Brownlee and her WBC improved and she follows up in 6 months. Pain of bi lateral hip joints 4795492932 3622332 M25.551 M25.552 hx noted. sees pain management . Kyphosis d eformity of spine 000232623 M40.209 Noted Long-term drug therapy 202707021 Z79.899 Liver and kidney function ordered Cholesterol screening 27 4049471 Z13.220 Cholestero l screening ordered External hemorrhoids 239 63656 K64.4 Patient needs a refill on her hydrocorti sone cream for p.r.n. use to the rectum for an external hemorrhoid Unintentio nal weight loss 182212785 R63.[address] of the abdomen and pelvis with contrast because she has already had a chest CT from her pulmonolog ist. We need to evaluate underlying cause for persistent weight loss. She also needs updated thyroid labs Screening for malignant neoplasm of colon 996461899 Z12.11 Patient does not want colonoscop y screening at her age of 79 but she does agree to a Cologuard screening Positive s creening for depression on PHQ-9 (Patient Health Questionnaire 9) 9748808129 72683 Z13.31 Patient scored a 5 on screening today. She is not currently on any medication for any mental health and does not feel that she has any concerns or complaints . Health Concerns Section Related Observation LastModified by Organization Detai ls LastModified Time None Recorded Concern Status LastModified by Organization Details LastModified Time None Recorded Advance Directives Directive Y: Payers Encounter Date Sequence Insurance Name Policy Number Policy Paul Covered Member ID Paul Member ID Guarantor Name 07/08/2023 1 [place] Glendy Roblero [id number] 2 Glendy Roblero 07/08/2023 2 [place] [id number] Glendy Roblero [id number] Glendy Roblero 12/16/2023 2 [id number] Glendy Roblero [id number] Glendy Roblero 12/16/2023 [place] [facility] Glendy Roblero [id number] 2 Glendy Roblero 12/31/2023 1 [place] Glendy Roblero [id number] 2 Glendy Roblero 12/31/2023 2 [place] [id number] Glendy Roblero [id number] Glendy Roblero 07/18/2024 1 [place] Glendy Roblero [id number] 2 Glendy Roblero 07/18/2024 2 [place] [id number] Glendy Roblero [id number] Glendy Roblero Notes Date Note Type Note Provider Name and Address Organization Details Recorded Time 07/08/2023 text/html COPDReported bypatient.Notes:bolivar ing Anoro Ellipta inhaler.Hip(s)Repor kevyn bypatient.Notes:arden at. hip arthritis. sees pain management and gets gabapentin 100mg daily. HARDIK Reilly Attn: Accounting[address] [place], [address], [facility] 07/15/2023 13:40:25 12/16/2023 text/html COPDReported bypatient.Notes:bolivar ing Anoro Ellipta inhaler. Patient follows with rotary pump operator for managementHip(s)Rep orted bypatient.Notes:arden at. hip arthritis. sees pain management and gets gabapentin 100mg daily. Patient has chronic leukocytosis and follows with oncology hematology for management and evaluation HARDIK Reilly Attn: Accounting[address] [facility], [place], [address], [facility] 01/04/2024 10:12:51 07/18/2024 text/html COPDReported bypatient.Notes:bolivar ing Anoro Ellipta inhaler. Patient follows with rotary pump operator for managementHip(s)Rep orted bypatient.Notes:arden at. hip arthritis. sees pain management and gets gabapentin 100mg daily. Patient has chronic leukocytosis and follows with oncology hematology for management and evaluation Patient continues to lose weight which she says is unintentional HARDIK Reilly Attn: Accounting[address] , [place], [address], [facility] 08/07/2024 19:34:15 OBGyn Episode No OBEpisode recorded.
--- OUTSIDE RECORDS SUMMARY | 2024-08-18 01:34 | XMS_ITS | Clinical Summary ---
Author Organization [facility] Care Team Providers Care Respiratory Manager Name Role Phone Unavailable Primary Care Provider [...]
[2024-08-18 06:42] VITALS: BP 160/79; PULSE 18; RESP 18; TEMP 36.1; O2SAT 92; BMI 12.9
[2024-08-18] MEDS: LACTATED RINGERS 1,000 ML 150 ML IV CONT (06:54)
--- NOTE | 2024-08-18 07:40 | P.PNAN_ITS ---
Anes - Initial Pre Proc Eval Procedure: Operation Date: 08/18/24 08:00 Proposed Procedures p Colonoscopy - Jose Manuel Hernandez MD Date/Time: 08/18/24 07:40 Surgeon: Jose Manuel Hernandez MD Pre Op Diagnosis: Other fecal abnormalities Patient Data Age: 79 Gender: F Height: 1.55 m Weight: 30.9 kg Last Vital Signs Temp 97 F L 08/18/24 06:42 Pulse 18 L 08/18/24 06:42 Resp 18 08/18/24 06:42 BP 160/79 H 08/18/24 06:42 Pulse Ox 92 08/18/24 06:42 O2 Del Method Room Air 08/18/24 06:42 Allergies Allergy/AdvReac Type Severity Reaction Status Date / Time Penicillins Allergy Intermediate Swelling Verified 08/18/24 06:40 aspirin AdvReac Intermediate tachycardia Verified 08/18/24 06:40 codeine AdvReac Intermediate Vomiting Verified 08/18/24 06:40 ibuprofen AdvReac Intermediate Vomiting Verified 08/18/24 06:40 Home Medications ?Medication ?Instructions ?Recorded ?Confirmed ?Type cholecalciferol (vitamin D3) 50 50 mcg PO DAILY 05/07/23 08/18/24 History mcg (2,000 unit) capsule (D3-2000) gabapentin 100 mg capsule 100 mg PO DAILY 05/07/23 08/18/24 History montelukast 10 mg tablet 10 mg PO DAILY #30 tabs 06/01/23 08/18/24 Rx albuterol sulfate 90 mcg/actuation 1 - 2 inh inhalation Q4-6H PRN 06/06/24 08/09/24 Rx aerosol inhaler (Ventolin HFA) shortness of breath or wheezing #8.5 grams Anoro Ellipta 62.5 mcg-25 1 inh inhalation DAILY #60 ea 07/08/24 08/18/24 Rx mcg/actuation powder for inhalation (umeclidinium-vilanterol) peg 3350-electrolytes 236 240 ml PO Q15M #4,000 mL 08/09/24 Rx gram-22.74 gram-6.74 gram-5.86 gram solution (Golytely) Patient hx anesthesia problems: none Family hx anesthesia problems: none Results Review: All pre-operative results and documents have been reviewed as part of the pre- operative evaluation. [facility] Past Medical History Medical History COPD (chronic obstructive pulmonary disease) Eczema of external auditory canal Hyponatremia Posterior rhinorrhea Thrombocytosis Otitis media Dyspnea on exertion Hyperlipidemia Bronchiolitis Hypoxia Vitamin D deficiency Family History Family History Mother Hyperlipidemia Hypertension Father Hypertension Heart disease Social History Social History Smoking packs per day: 1 Smoking cigarettes per day: 20.0 Years smoked: 25 Smoking pack-years: 25.00 Smoking status: Current every day smoker Tobacco type: cigarettes Second hand tobacco smoke exposure: Yes Alcohol intake: never Substance use: never Substance use type: does not use Living arrangements: with family Spiritual care concerns: No Anes - Eval Final PreProcedure Day of Procedure 08/18/24 07:40 Patient weight: cachectic and thin Lungs: normal air movement Airway: Mallampati scale class II and special considerations (Upper and lower dentures. ) Neurological: alert and oriented Last oral intake: >/= 8 hours ASA classification: III Emergent: no Anesthetic plan: proceed Anesthesia type and monitoring: general GIVS and standard monitoring Results Review: All pre-operative results and documents have been reviewed as part of the pre- operative evaluation. Cachectic female. COPD w current smoking and smoked at 6 am, severe OA/hip pain. Informed Consent: The patient's anesthetic plan and its attendant risks and benefits were discussed with the patient/family/POA. Questions were solicited and answers provided to the satisfaction of the patient/family/POA.
--- NOTE | 2024-08-18 07:54 | PM.IMHP ---
H&P: HPI History of Present Illness Date/Time: 08/18/24 07:54 Chief Complaint: weight loss Narrative: the patient has been referred for colonoscopy for the investigation of severe weight loss, Approximately 15 lb. her last colonoscopy was in 2018, reportedly normal. He denies abdominal pain, change in bowel habits rectal. Review of Systems Review of Systems: All systems reviewed & are unremarkable except as noted in HPI and below PMFSH Past Medical History Medical History COPD (chronic obstructive pulmonary disease) Eczema of external auditory canal Hyponatremia Posterior rhinorrhea Thrombocytosis Otitis media Dyspnea on exertion Hyperlipidemia Bronchiolitis Hypoxia Vitamin D deficiency Family History Family History Mother Hyperlipidemia Hypertension Father Hypertension Heart disease Social History Social History Smoking packs per day: 1 Smoking cigarettes per day: 20.0 Years smoked: 25 Smoking pack-years: 25.00 Smoking status: Current every day smoker Tobacco type: cigarettes Second hand tobacco smoke exposure: Yes Alcohol intake: never Substance use: never Substance use type: does not use Living arrangements: with family Spiritual care concerns: No Meds Home Medications and Allergies Home Medications ?Medication ?Instructions ?Recorded ?Confirmed ?Type cholecalciferol (vitamin D3) 50 50 mcg PO DAILY 05/07/23 08/18/24 History mcg (2,000 unit) capsule (D3-2000) gabapentin 100 mg capsule 100 mg PO DAILY 05/07/23 08/18/24 History montelukast 10 mg tablet 10 mg PO DAILY #30 tabs 06/01/23 08/18/24 Rx albuterol sulfate 90 mcg/actuation 1 - 2 inh inhalation Q4-6H PRN 06/06/24 08/09/24 Rx aerosol inhaler (Ventolin HFA) shortness of breath or wheezing #8.5 grams Anoro Ellipta 62.5 mcg-25 1 inh inhalation DAILY #60 ea 07/08/24 08/18/24 Rx mcg/actuation powder for inhalation (umeclidinium-vilanterol) peg 3350-electrolytes 236 240 ml PO Q15M #4,000 mL 08/09/24 Rx gram-22.74 gram-6.74 gram-5.86 gram solution (Golytely) Allergies Allergy/AdvReac Type Severity Reaction Status Date / Time Penicillins Allergy Intermediate Swelling Verified 08/18/24 06:40 aspirin AdvReac Intermediate tachycardia Verified 08/18/24 06:40 codeine AdvReac Intermediate Vomiting Verified 08/18/24 06:40 ibuprofen AdvReac Intermediate Vomiting Verified 08/18/24 06:40 Vital Signs Vital Signs - 24 hr 08/18/24 06:42 Temperature 97 F L Pulse Rate 18 L Respiratory Rate 18 Blood Pressure 160/79 H Pulse Oximetry 92 Oxygen Delivery Room Air Exam Narrative: Chronically-ill, almost cachectic. Rest of the exam within normal limits. Assessment and Plan Assessment and plan (1) Weight loss: Code(s): R63.4 - Abnormal weight loss Status: Acute Assessment and Plan: The patient is deemed a good candidate for the procedure. Consent signed. Will proceed.
[2024-08-18 08:23] VITALS: BP 159/82; PULSE 98; RESP 22; O2SAT 94
[2024-08-18 08:33] VITALS: BP 146/83; PULSE 99; RESP 19; O2SAT 93
--- NOTE | 2024-08-18 08:38 | S_PTH ---
PATIENT: Glendy Roblero LOC: [facility]#:[id number] AGE/SX: 79/F ROOM: RE08/18/[address]: Jose Manuel Hernandez MD : 1945 BED: DIS: 08/18/2024 SPEC #: [id number] RECD: 08/18/24 10:15 STATUS: LADY YUAN #: [id number] BABAR: 08/18/24 08:[address]: Jose Manuel Hernandez DEPT: [facility] Surgical RECD BY: Deysi Romo ENTERED: 08/18/24 10:16 SP TYPE: Surgical OTHR DR: Nolvia Correia, PA-C Tissues: A - Colon Polypectomy B - Colon Polypectomy Procedures: Hematoxylin and Eosin Stain Gross and Microscopic Level 4
[2024-08-18 08:43] VITALS: BP 142/83; PULSE 96; RESP 25; O2SAT 94
== END 2024-08-18 08:53 | disposition home or self-care (01) ==
PROVIDERS: PCP Physician Assistant; Referring Provider Physician Assistant; Visit Provider Internal Medicine Gastroenterology
PROC: 0DJD8ZZ Inspection of Lower Intestinal Tract, Via Natural or Artificial Opening Endoscopic (ICD-10-PCS; CPT 45378; principal; 2024-08-18 08:00)
DX: R63.4 Abnormal weight loss (principal); D12.3 Benign neoplasm of transverse colon; F17.210 Nicotine dependence, cigarettes, uncomplicated; Z68.1 Body mass index [BMI] 19.9 or less, adult
CPT/HCPCS: 45385; 88305; J2704; J7120

== ENCOUNTER 2024-09-30 11:37 | Outpatient (CLI) | payer MEDICARE, SELFPAY ==
--- OUTSIDE RECORDS SUMMARY | 2024-09-30 11:41 | XMS_ITS | Encounter Summary ---
Author Organization [facility] Address 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
--- OUTSIDE RECORDS SUMMARY | 2024-09-30 11:42 | XMS_ITS | Data Portability ---
Author Organization [facility] Zachary Prell, Main Office Address [address] [place] [address] Assessment Encounter Date Assessment Date Assessment LastModified by Organization Details LastModified Time 06/16/2022 06/16/2022 Cscope- 03/2018- [place] repeat 2023 Mammo- 06/2021 DEXA- osteoporosis, refuses meds LDCT- per pulm WWE- WELDER OPERATOR- Dr. Chan Call office if worse, ER if life threatening illness RTC 4 months She voices understanding of plan and agrees [email or web address] Not available 06/16/2022 15:06:29 10/14/2022 10/14/2022 Cscope- 03/2018- May repeat 2023 Mammo-08/2022 DEXA- osteoporosis, refuses meds LDCT- per pulmiguel BAINS- WELDER OPERATORJacey Chan Call office if worse, ER if life threatening illness RTC 4 months She voices understanding of plan and agrees [email or web address] Not available 10/14/2022 13:59:34 02/10/2023 02/10/2023 Cscope- 03/2018- [place] repeat 2023 Mammo-08/2022 DEXA- osteoporosis, refuses meds LDCT- per pulm GONZALESE- WELDER OPERATORJacey Chan Call office if worse, ER if life threatening illness RTC 4 months- plans to transfer to PCP out of [facility] system She voices understanding of plan and agrees [email or web address] Not available 02/10/2023 15:23:57 Plan of Treatment Reminders Order Date Submit Date Provider Last Modified By Organization Details Last Modified Time Details Appointments None recorded. Lab vitamin D, 25-hydroxy, total, serum 2022 023 [email or web address] [facility] ([facility]), [address] [place], [address], 4 15:46:33 CMP, serum or plasma 2022 023 [facility] (Lab), [address] [place], [address], 3 17:19:48 CBC w/ auto diff 2022 023 [facility] (Lab), [address] [place], [address], 3 17:09:49 lipid panel, serum 2022 023 [facility] (Lab), [address] [place], [address], 3 17:19:58 vitamin D, 25-hydroxy, total, serum [address] (Lab), [address] [place], [address], 3 09:18:51 CBC w/ auto diff 2022 023 [facility] (Lab), [address] [place], [address], 3 17:03:00 CMP, serum or plasma 2022 023 [facility] (Lab), [address] [place], [address], 3 19:09:58 lipid panel, serum 2022 023 [facility] (Lab), [address] [place], [address], 3 19:10:03 TSH, serum or plasma 2022 023 [facility] (Lab), [address] [place], [address], 19:23:22 Referral None recorded. Procedures None recorded. Surgeries None recorded. Imaging LDCT, chest, for lung cancer screening - DUE 12/2022 023 [email or web address], [address], [place], [address], 09:48:25 MAMMO, screening, bilateral 2022 023 [facility], [address], [place], [address], 17:20:24 Medication Orders montelukast 10 mg tablet 2022 023 [facility] #[id number], [address], [place], [place], [id number], 14:53:31 Anoro Ellipta 62.5 mcg-25 mcg/actuati on powder for inhalation 2022 023 [facility] #[id number], [address], [place], [place], [id number], 14:53:30 fluticasone propionate 50 mcg/actuati on nasal spray,suspe nsion 2022 023 [facility] #[id number], [address], [place], [place], [id number], 14:19:12 Anusol-HC 2.5 % topical cream with perineal applicator 2022 023 [facility] #[id number], [address], [place], [place], [id number], 14:19:12 Patient TargetsNo targets recorded. Patient Instructions Encounter Date Encounter Id Patient Instructions Last Modified By Organization Details Last Modified Time 10/14/2022 [id number] dementia rating scale-2* [email or web address] Not available 10/14/2022 14:27:15 depression screening* [email or web address] Not available 10/14/2022 15:30:28 multi-dimensiona l health assessment questionnaire* [email or web address] Not available 10/14/2022 14:27:15 Personalized Hea lt Plan and Screening Recommendations Advance Directives - [...] Cancer Screening with mammogram: Your next mammogram: 08/2023 Cervical/Uterine/Ov cristal Cancer Screening: No screening necessary Osteoporosis Screening: Recommended today, but you have declined Date Screening Last Performed: Colon Cancer Screening: Colonoscopy In: 2023 Date Screening Last Performed: Eye Disease Screening: Recommended today Dementia Risk: Low Depression Screening: Negative [email or web address] Not available 10/14/2022 14:28:51 Reason for Referral None Reported. Results Created Date Observation Date Name Description Value Unit Range Abnormal Flag Note LastModifiedBy Organization Detail LastModifiedTime 06/17/19 23 06/16/2022 CBC/C OMPLE TE BLD COUNT W/DIF F white blood cells 9.9 x10'3 /uL 4.2-10 .8 Not Available [facility] (Lab) [address] [place], [address], 06/16/2022 17:03:00 06/17/19 23 06/16/2022 CBC/C OMPLE TE BLD COUNT W/DIF F red blood cells 4.07 x10'6 /uL 3.80-5 .20 Not Available [facility] (Lab) [address] [place], [address], 06/16/2022 17:03:00 06/17/19 23 06/16/2022 CBC/C OMPLE TE BLD COUNT W/DIF F hemoglobin 12.6 g/dL 12.0-1 5.6 Not Available [facility] (Lab) [address] [place], [address], 06/16/2022 17:03:00 06/17/19 23 06/16/2022 CBC/C OMPLE TE BLD COUNT W/DIF F hematocrit 39.0 % 35.7-4 5.7 Not Available [facility] (Lab) [address] [place], [address], 06/16/2022 17:03:00 06/17/19 23 06/16/2022 CBC/C OMPLE TE BLD COUNT W/DIF F mean red cell volume 95.8 fL 82.0-9 9.0 Not Available [facility] (Lab) [address] [place], [address], 06/16/2022 17:03:00 06/17/19 23 06/16/2022 CBC/C OMPLE TE BLD COUNT W/DIF F mean red cell hemoglobin 31.0 pg 27.0-3 3.0 Not Available [facility] (Lab) [address] [place], [address], 06/16/2022 17:03:00 06/17/19 23 06/16/2022 CBC/C OMPLE TE BLD COUNT W/DIF F mean RBC HGB concentratio n 32.3 g/dL 31.0-3 6.0 Not Available [facility] (Lab) [address] [place], [address], 06/16/2022 17:03:00 06/17/19 23 06/16/2022 CBC/C OMPLE TE BLD COUNT W/DIF F red cell distribution width 13.1 % 11.8-1 5.5 Not Available [facility] (Lab) [address] [place], [address], 06/16/2022 17:03:00 06/17/1906/16/2022 CBC/C OMPLE TE BLD COUNT W/DIF F platelets 414 x10'3 /uL 150-40 0 high Not Available [facility] (Lab) [address] [place], [address], 06/16/2022 17:03:00 06/17/19 23 06/16/2022 CBC/C OMPLE TE BLD COUNT W/DIF F mean platelet volume 9.2 fL 9.0-12 .4 Not Available [facility] (Lab) [address] [place], [address], 06/16/2022 17:03:00 06/17/19 23 06/16/2022 CBC/C OMPLE TE BLD COUNT W/DIF F neutrophils 60.7 % 39.0-7 2.0 Not Available [facility] (Lab) [address] [place], [address], 06/16/2022 17:03:00 06/17/19 23 06/16/2022 CBC/C OMPLE TE BLD COUNT W/DIF F lymphocytes 30.2 % 16.0-4 7.0 Not Available [facility] (Lab) [address] [place], [address], 06/16/2022 17:03:00 06/17/19 23 06/16/2022 CBC/C OMPLE TE BLD COUNT W/DIF F monocytes 7.1 % 5.0-12 .0 Not Available [facility] (Lab) [address] [place], [address], 06/16/2022 17:03:00 06/17/19 23 06/16/2022 CBC/C OMPLE TE BLD COUNT W/DIF F eosinophils 1.0 % 1.0-7. 0 Not Available [facility] (Lab) [address] [place], [address], 06/16/2022 17:03:00 06/17/1906/16/2022 CBC/C OMPLE TE BLD COUNT W/DIF F basophils 0.6 % 0.0-2. 0 Not Available [facility] (Lab) [address] [place], [address], 06/16/2022 17:03:00 06/17/19 23 06/16/2022 CBC/C OMPLE TE BLD COUNT W/DIF F immature granulocytes 0.4 % 0.00-0 .50 Not Available [facility] (Lab) [address] [place], [address], 06/16/2022 17:03:00 06/17/19 23 06/16/2022 CBC/C OMPLE TE BLD COUNT W/DIF F neutrophils, absolute count 5.99 x10'3 /uL 1.5-8. 0 Not Available [facility] (Lab) [address] [place], [address], 06/16/2022 17:03:00 06/17/19 23 06/16/2022 CBC/C OMPLE TE BLD COUNT W/DIF F lymphocytes, absolute count 2.98 x10'3 /uL 1.07-3 .43 Not Available [facility] (Lab) [address] [place], [address], 06/16/2022 17:03:00 06/17/19 23 06/16/2022 CBC/C OMPLE TE BLD COUNT W/DIF F monocytes, absolute count 0.70 x10'3 /uL 0.29-0 .99 Not Available [facility] (Lab) [address] [place], [address], 06/16/2022 17:03:00 06/17/19 23 06/16/2022 CBC/C OMPLE TE BLD COUNT W/DIF F eosinophils, absolute count 0.10 x10'3 /uL 0.02-0 .53 Not Available [facility] (Lab) [address] [place], [address], 06/16/2022 17:03:00 06/17/19 23 06/16/2022 CBC/C OMPLE TE BLD COUNT W/DIF F basophils, absolute count 0.06 x10'3 /uL 0.01-0 .08 Not Available [facility] (Lab) [address] [place], [address], 06/16/2022 17:03:00 06/17/19 23 06/16/2022 CBC/C OMPLE TE BLD COUNT W/DIF F immature granulocytes ,absolute 0.04 x10'3 /uL 0.00-0 .05 Not Available [facility] (Lab) [address] [place], [address], 06/16/2022 17:03:00 06/17/19 23 06/16/2022 CBC/C OMPLE TE BLD COUNT W/DIF F nucleated red blood cells 0.0 % -0 Not Available [facility] (Lab) [address] [place], [address], 06/16/2022 17:03:00 06/17/19 23 06/16/2022 CBC/C OMPLE TE BLD COUNT W/DIF F NRBC# 0.00 x10'3 /uL Not Available [facility] (Lab) [address] [place], [address], 06/16/2022 17:03:00 06/17/19 23 06/16/2022 COMPR EHENS MICHAEL METAB OLIC PANEL sodium 136 mmol/ L 137-14 5 low Not Available [facility] (Lab) [address] [place], [address], 06/16/2022 19:09:58 06/17/19 23 06/16/2022 COMPR EHENS MICHAEL METAB OLIC PANEL potassium 4.1 mmol/ L 3.5-5. 1 Not Available [facility] (Lab) [address] [place], [address], 06/16/2022 19:09:58 06/17/19 23 06/16/2022 COMPR EHENS MICHAEL METAB OLIC PANEL chloride 101 mmol/ L 98-107 Not Available [facility] (Lab) [address] [place], [address], 06/16/2022 19:09:58 06/17/19 23 06/16/2022 COMPR EHENS MICHAEL METAB OLIC PANEL carbon dioxide 26 mmol/ L 22-30 Not Available [facility] (Lab) [address] [place], [address], 06/16/2022 19:09:58 06/17/19 23 06/16/2022 COMPR EHENS MICHAEL METAB OLIC PANEL anion gap 13.1 mmol/ L 14-22 low Not Available [facility] (Lab) [address] [place], [address], 06/16/2022 19:09:58 06/17/19 23 06/16/2022 COMPR EHENS MICHAEL METAB OLIC PANEL glucose 82 mg/dL 70-99 Not Available [facility] (Lab) [address] [place], [address], 06/16/2022 19:09:58 06/17/19 23 06/16/2022 COMPR EHENS MICHAEL METAB OLIC PANEL BUN 7 mg/dL 8-19 low Not Available [facility] (Lab) [address] [place], [address], 06/16/2022 19:09:58 06/17/1906/16/2022 COMPR EHENS MICHAEL METAB OLIC PANEL creatinine 0.88 mg/dL 0.66-1 .25 Not Available [facility] (Lab) [address] [place], [address], 06/16/2022 19:09:58 06/17/1906/16/2022 COMPR EHENS MICHAEL METAB OLIC PANEL GFR >60 Refer ence Range : [place] GFR Healt hy Adult : >60 [...] or ethni c subgr oups, such as id nics. Outsi de the valid ated skye [...] calcu lator is avail able on the NKF websi te: https ://gonzales velasquez.o rg/pr ofess ional s/kdo qi/gf r_cal culat or Not Available [facility] (Lab) [address] [place], [address], 06/16/2022 19:09:58 06/17/19 23 06/16/2022 COMPR EHENS MICHAEL METAB OLIC PANEL alkaline phosphatase 49 U/L 38-126 Not Available [facility] (Lab) [address] [place], [address], 06/16/2022 19:09:58 06/17/19 23 06/16/2022 COMPR EHENS MICHAEL METAB OLIC PANEL alanine aminotransfe rase 13 U/L 0-35 Not Available [facility] (Lab) [address] [place], [address], 06/16/2022 19:09:58 06/17/19 23 06/16/2022 COMPR EHENS MICHAEL METAB OLIC PANEL aspartate aminotransfe rase 20 U/L 15-37 Not Available [facility] (Lab) [address] [place], [address], 06/16/2022 19:09:58 06/17/19 23 06/16/2022 COMPR EHENS MICHAEL METAB OLIC PANEL bilirubin, total 0.30 mg/dL 0.20-1 .30 Not Available [facility] (Lab) [address] [place], [address], 06/16/2022 19:09:58 06/17/19 23 06/16/2022 COMPR EHENS MICHAEL METAB OLIC PANEL calcium 9.0 mg/dL 8.4-10 .2 Not Available [facility] (Lab) [address] [place], [address], 06/16/2022 19:09:58 06/17/19 23 06/16/2022 COMPR EHENS MICHAEL METAB OLIC PANEL total protein 7.4 g/dL 6.3-8. 2 Not Available [facility] (Lab) [address] [place], [address], 06/16/2022 19:09:58 06/17/19 23 06/16/2022 COMPR EHENS MICHAEL METAB OLIC PANEL albumin 4.0 g/dL 3.0-4. 4 Not Available [facility] (Lab) [address] [place], [address], 06/16/2022 19:09:58 06/17/19 23 06/16/2022 COMPR EHENS MICHAEL METAB OLIC PANEL globulin 3.4 g/dL 2.6-4. 2 Not Available [facility] (Lab) [address] [place], [address], 06/16/2022 19:09:58 06/17/19 23 06/16/2022 COMPR EHENS MICHAEL METAB OLIC PANEL A/G ratio 1.2 ratio 1.0-2. 0 Not Available [facility] (Lab) [address] [place], [address], 06/16/2022 19:09:58 06/17/19 23 06/16/2022 LIPID PANEL cholesterol 178 mg/dL 140-19 9 NIH LALIT NSUS RECOM MENDA TION FOR HELEN STERO L: ADULT CHILD LOW RISK: <200 <170 BORDE RLINE : <200- 239 ----- HIGH RISK: >240 >200 Not Available [facility] (Lab) [address] [place], [address], 06/16/2022 19:10:03 06/17/1906/16/2022 LIPID PANEL triglyceride s 71 mg/dL 0-150 NIH LALIT NSUS REPOR T RECOM MENDA TION FOR TRIGL YCERI CHEIKH: ADULT CHILD LOW RISK: <150 ----- BODER LINE: 150-1 99 ----- HIGH RISK: >200 ----- Not Available [facility] (Lab) [address] [place], [address], 06/16/2022 19:10:03 06/17/19 23 06/16/2022 LIPID PANEL HDL cholesterol 63 mg/dL 40- Not Available [facility] (Lab) [address] [place], [address], 06/16/2022 19:10:03 06/17/1906/16/2022 LIPID PANEL LDL cholesterol, calculated 101 mg/dL [...] WILL NOT BE REPOR PATSY. Not Available [facility] (Lab) [address] [place], [address], 06/16/2022 19:10:03 06/17/19 23 06/16/2022 VITAM IN D 25-HY DROXY [id number] 68.3 NG/mL 30-100 Vitam in D Statu s: Defic ient: <20 ng/mL Insuf ficie nt: 20-29 ng/mL Suffi cient : 30-10 0 ng/mL Not Available [facility] (Lab) [address] [place], [address], 06/16/2022 19:23:07 06/17/19 23 06/16/2022 TSH W/REF SEGUNDO FT4 TSH with reflex free T4 2.010 uIU/m L 0.465- 4.680 Not Available [facility] (Lab) [address] [place], [address], 06/16/2022 19:23:22 02/11/20 23 02/10/2023 CBC/C OMPLE TE BLD COUNT W/DIF F white blood cells 12.6 x10'3 /uL 4.2-10 .8 high Not Available [facility] (Lab) [address] [place], [address], 02/10/2023 17:09:48 02/11/20 23 02/10/2023 CBC/C OMPLE TE BLD COUNT W/DIF F red blood cells 4.13 x10'6 /uL 3.80-5 .20 Not Available [facility] (Lab) [address] [place], [address], 02/10/2023 17:09:48 02/11/20 23 02/10/2023 CBC/C OMPLE TE BLD COUNT W/DIF F hemoglobin 13.3 g/dL 12.0-1 5.6 Not Available [facility] (Lab) [address] [place], [address], 02/10/2023 17:09:48 02/11/20 23 02/10/2023 CBC/C OMPLE TE BLD COUNT W/DIF F hematocrit 40.9 % 35.7-4 5.7 Not Available [facility] (Lab) [address] [place], [address], 02/10/2023 17:09:48 02/11/20 23 02/10/2023 CBC/C OMPLE TE BLD COUNT W/DIF F mean red cell volume 99.0 fL 82.0-9 9.0 Not Available [facility] (Lab) [address] [place], [address], 02/10/2023 17:09:48 02/11/20 23 02/10/2023 CBC/C OMPLE TE BLD COUNT W/DIF F mean red cell hemoglobin 32.2 pg 27.0-3 3.0 Not Available [facility] (Lab) [address] [place], [address], 02/10/2023 17:09:48 02/11/20 23 02/10/2023 CBC/C OMPLE TE BLD COUNT W/DIF F mean RBC HGB concentratio n 32.5 g/dL 31.0-3 6.0 Not Available [facility] (Lab) [address] [place], [address], 02/10/2023 17:09:48 02/11/20 23 02/10/2023 CBC/C OMPLE TE BLD COUNT W/DIF F red cell distribution width 13.2 % 11.8-1 5.5 Not Available [facility] (Lab) [address] [place], [address], 02/10/2023 17:09:48 02/11/20 23 02/10/2023 CBC/C OMPLE TE BLD COUNT W/DIF F platelets 437 x10'3 /uL 150-40 0 high Not Available [facility] (Lab) [address] [place], [address], 02/10/2023 17:09:48 02/11/20 23 02/10/2023 CBC/C OMPLE TE BLD COUNT W/DIF F mean platelet volume 9.4 fL 9.0-12 .4 Not Available [facility] (Lab) [address] [place], [address], 02/10/2023 17:09:48 02/11/20 23 02/10/2023 CBC/C OMPLE TE BLD COUNT W/DIF F neutrophils 69.3 % 39.0-7 2.0 Not Available [facility] (Lab) [address] [place], [address], 02/10/2023 17:09:48 02/11/20 23 02/10/2023 CBC/C OMPLE TE BLD COUNT W/DIF F lymphocytes 23.2 % 16.0-4 7.0 Not Available [facility] (Lab) [address] [place], [address], 02/10/2023 17:09:48 02/11/20 23 02/10/2023 CBC/C OMPLE TE BLD COUNT W/DIF F monocytes 5.9 % 5.0-12 .0 Not Available [facility] (Lab) [address] [place], [address], 02/10/2023 17:09:48 02/11/20 23 02/10/2023 CBC/C OMPLE TE BLD COUNT W/DIF F eosinophils 0.8 % 1.0-7. 0 low Not Available [facility] (Lab) [address] [place], [address], 02/10/2023 17:09:48 02/11/20 23 02/10/2023 CBC/C OMPLE TE BLD COUNT W/DIF F basophils 0.5 % 0.0-2. 0 Not Available [facility] (Lab) [address] [place], [address], 02/10/2023 17:09:48 02/11/20 23 02/10/2023 CBC/C OMPLE TE BLD COUNT W/DIF F immature granulocytes 0.3 % 0.00-0 .50 Not Available [facility] (Lab) [address] [place], [address], 02/10/2023 17:09:48 02/11/20 23 02/10/2023 CBC/C OMPLE TE BLD COUNT W/DIF F neutrophils, absolute count 8.74 x10'3 /uL 1.5-8. 0 high Not Available [facility] (Lab) [address] [place], [address], 02/10/2023 17:09:48 02/11/20 23 02/10/2023 CBC/C OMPLE TE BLD COUNT W/DIF F lymphocytes, absolute count 2.92 x10'3 /uL 1.07-3 .43 Not Available [facility] (Lab) [address] [place], [address], 02/10/2023 17:09:48 02/11/20 23 02/10/2023 CBC/C OMPLE TE BLD COUNT W/DIF F monocytes, absolute count 0.75 x10'3 /uL 0.29-0 .99 Not Available [facility] (Lab) [address] [place], [address], 02/10/2023 17:09:48 02/11/20 23 02/10/2023 CBC/C OMPLE TE BLD COUNT W/DIF F eosinophils, absolute count 0.10 x10'3 /uL 0.02-0 .53 Not Available [facility] (Lab) [address] [place], [address], 02/10/2023 17:09:48 02/11/20 23 02/10/2023 CBC/C OMPLE TE BLD COUNT W/DIF F basophils, absolute count 0.06 x10'3 /uL 0.01-0 .08 Not Available [facility] (Lab) [address] [place], [address], 02/10/2023 17:09:48 02/11/20 23 02/10/2023 CBC/C OMPLE TE BLD COUNT W/DIF F immature granulocytes ,absolute 0.04 x10'3 /uL 0.00-0 .05 Not Available [facility] (Lab) [address] [place], [address], 02/10/2023 17:09:48 02/11/20 23 02/10/2023 CBC/C OMPLE TE BLD COUNT W/DIF F nucleated red blood cells 0.0 % -0 Not Available [facility] (Lab) [address] [place], [address], 02/10/2023 17:09:48 02/11/20 23 02/10/2023 CBC/C OMPLE TE BLD COUNT W/DIF F NRBC# 0.00 x10'3 /uL Not Available [facility] (Lab) [address] [place], [address], 02/10/2023 17:09:48 02/11/20 23 02/10/2023 VITAM IN D 25-HY DROXY [id number] 84.7 NG/mL 30-100 Vitam in D Statu s: Defic ient: <20 ng/mL Insuf ficie nt: 20-29 ng/mL Suffi cient : 30-10 0 ng/mL Not Available [facility] (Lab) [address] [place], [address], 02/10/2023 17:17:24 02/11/20 23 02/10/2023 COMPR EHENS MICHAEL METAB OLIC PANEL sodium 134 mmol/ L 137-14 5 low Not Available [facility] (Lab) [address] [place], [address], 02/10/2023 17:19:48 02/11/20 23 02/10/2023 COMPR EHENS MICHAEL METAB OLIC PANEL potassium 4.4 mmol/ L 3.5-5. 1 Not Available [facility] (Lab) [address] [place], [address], 02/10/2023 17:19:48 02/11/20 23 02/10/2023 COMPR EHENS MICHAEL METAB OLIC PANEL chloride 98 mmol/ L 98-107 Not Available [facility] (Lab) [address] [place], [address], 02/10/2023 17:19:48 02/11/20 23 02/10/2023 COMPR EHENS MICHAEL METAB OLIC PANEL carbon dioxide 28 mmol/ L 22-30 Not Available [facility] (Lab) [address] [place], [address], 02/10/2023 17:19:48 02/11/20 23 02/10/2023 COMPR EHENS MICHAEL METAB OLIC PANEL anion gap 12.4 mmol/ L 14-22 low Not Available [facility] (Lab) [address] [place], [address], 02/10/2023 17:19:48 02/11/20 23 02/10/2023 COMPR EHENS MICHAEL METAB OLIC PANEL glucose 93 mg/dL 70-99 Not Available [facility] (Lab) [address] [place], [address], 02/10/2023 17:19:48 02/11/20 23 02/10/2023 COMPR EHENS MICHAEL METAB OLIC PANEL BUN 8 mg/dL 8-19 Not Available [facility] (Lab) [address] [place], [address], 02/10/2023 17:19:48 02/11/20 23 02/10/2023 COMPR EHENS MICHAEL METAB OLIC PANEL creatinine 0.83 mg/dL 0.66-1 .25 Not Available [facility] (Lab) [address] [place], [address], 02/10/2023 17:19:48 02/11/20 23 02/10/2023 COMPR EHENS MICHAEL METAB OLIC PANEL GFR >60 Refer ence Range : [place] GFR Healt hy Adult : >60 [...] or ethni c subgr oups, such as Hisid nics. Outsi de the valid ated skye [...] calcu lator is avail able on the NK websi te: https :[email or web address] [email or web address].[email or web address] [email or web address] short/pr ofess ional s/kdo qi/gf r_cal culat or Not Available [facility] (Lab) [address] [place], [address], 02/10/2023 17:19:48 02/11/20 23 02/10/2023 COMPR EHENS MICHAEL METAB OLIC PANEL alkaline phosphatase 52 U/L 38-126 Not Available [facility] (Lab) [address] [place], [address], 02/10/2023 17:19:48 02/11/20 23 02/10/2023 COMPR EHENS MICHAEL METAB OLIC PANEL alanine aminotransfe rase 12 U/L 0-35 Not Available [facility] (Lab) [address] [place], [address], 02/10/2023 17:19:48 02/11/20 23 02/10/2023 COMPR EHENS MICHAEL METAB OLIC PANEL aspartate aminotransfe rase 21 U/L 15-37 Not Available [facility] (Lab) [address] [place], [address], 02/10/2023 17:19:48 02/11/20 23 02/10/2023 COMPR EHENS MICHAEL METAB OLIC PANEL bilirubin, total 0.40 mg/dL 0.20-1 .30 Not Available [facility] [place] (Lab) [address] [place], [address], 02/10/2023 17:19:48 02/11/20 23 02/10/2023 COMPR EHENS MICHAEL METAB OLIC PANEL calcium 9.8 mg/dL 8.4-10 .2 Not Available [facility] [place] (Lab) [address] [place], [address], 02/10/2023 17:19:48 02/11/20 23 02/10/2023 COMPR EHENS MICHAEL METAB OLIC PANEL total protein 8.1 g/dL 6.3-8. 2 Not Available [facility] (Lab) [address] [place], [address], 02/10/2023 17:19:48 02/11/2002/10/2023 COMPR EHENS MICHAEL METAB OLIC PANEL albumin 4.2 g/dL 3.0-4. 4 Not Available [facility] (Lab) [address] [place], [address], 02/10/2023 17:19:48 02/11/20 23 02/10/2023 COMPR EHENS MICHAEL METAB OLIC PANEL globulin 3.9 g/dL 2.6-4. 2 Not Available [facility] (Lab) [address] [place], [address], 02/10/2023 17:19:48 02/11/20 23 02/10/2023 COMPR EHENS MICHAEL METAB OLIC PANEL A/G ratio 1.1 ratio 1.0-2. 0 Not Available [facility] (Lab) [address] [place], [address], 02/10/2023 17:19:48 02/11/2002/10/2023 LIPID PANEL cholesterol 199 mg/dL 140-19 9 NIH LALIT NSUS RECOM MENDA TION FOR HELEN STERO L: ADULT CHILD LOW RISK: <200 <170 BORDE RLINE : <200- 239 ----- HIGH RISK: >240 >200 Not Available [facility] (Lab) [address] [place], [address], 02/10/2023 17:19:58 02/11/2002/10/2023 LIPID PANEL triglyceride s 95 mg/dL 0-150 NIH LALIT NSUS REPOR T RECOM MENDA TION FOR TRIGL YCERI CHEIKH: ADULT CHILD LOW RISK: <150 ----- BODER LINE: 150-1 99 ----- HIGH RISK: >200 ----- Not Available [facility] (Lab) [address] [place], [address], 02/10/2023 17:19:58 02/11/20 23 02/10/2023 LIPID PANEL HDL cholesterol 69 mg/dL 40- Not Available [facility] (Lab) [address] [place], [address], 02/10/2023 17:19:58 02/11/20 23 02/10/2023 LIPID PANEL [...] WILL NOT BE REPOR PATSY. Not Available [facility] (Lab) [address] [place], [address], 02/10/2023 17:19:58 03/12/20 23 03/12/2023 CBC/C OMPLE TE BLD COUNT W/DIF F white blood cells 14.0 x10'3 /uL 4.2-10 .8 high Not Available [facility] (Lab) [address] [place], [address], 03/12/2023 15:55:00 03/12/20 23 03/12/2023 CBC/C OMPLE TE BLD COUNT W/DIF F red blood cells 4.07 x10'6 /uL 3.80-5 .20 Not Available [facility] (Lab) [address] [place], [address], 03/12/2023 15:55:00 03/12/20 23 03/12/2023 CBC/C OMPLE TE BLD COUNT W/DIF F hemoglobin 13.2 g/dL 12.0-1 5.6 Not Available [facility] (Lab) [address] [place], [address], 03/12/2023 15:55:00 03/12/20 23 03/12/2023 CBC/C OMPLE TE BLD COUNT W/DIF F hematocrit 40.5 % 35.7-4 5.7 Not Available [facility] (Lab) [address] [place], [address], 03/12/2023 15:55:00 03/12/20 23 03/12/2023 CBC/C OMPLE TE BLD COUNT W/DIF F mean red cell volume 99.5 fL 82.0-9 9.0 high Not Available [facility] (Lab) [address] [place], [address], 03/12/2023 15:55:00 03/12/20 23 03/12/2023 CBC/C OMPLE TE BLD COUNT W/DIF F mean red cell hemoglobin 32.4 pg 27.0-3 3.0 Not Available [facility] (Lab) [address] [place], [address], 03/12/2023 15:55:00 03/12/20 23 03/12/2023 CBC/C OMPLE TE BLD COUNT W/DIF F mean RBC HGB concentratio n 32.6 g/dL 31.0-3 6.0 Not Available [facility] (Lab) [address] [place], [address], 03/12/2023 15:55:00 03/12/20 23 03/12/2023 CBC/C OMPLE TE BLD COUNT W/DIF F red cell distribution width 13.5 % 11.8-1 5.5 Not Available [facility] (Lab) [address] [place], [address], 03/12/2023 15:55:00 03/12/20 23 03/12/2023 CBC/C OMPLE TE BLD COUNT W/DIF F platelets 415 x10'3 /uL 150-40 0 high Not Available [facility] (Lab) [address] [place], [address], 03/12/2023 15:55:00 03/12/20 23 03/12/2023 CBC/C OMPLE TE BLD COUNT W/DIF F mean platelet volume 9.5 fL 9.0-12 .4 Not Available [facility] (Lab) [address] [place], [address], 03/12/2023 15:55:00 03/12/20 23 03/12/2023 CBC/C OMPLE TE BLD COUNT W/DIF F neutrophils 72.6 % 39.0-7 2.0 high Not Available [facility] (Lab) [address] [place], [address], 03/12/2023 15:55:00 03/12/20 23 03/12/2023 CBC/C OMPLE TE BLD COUNT W/DIF F lymphocytes 19.1 % 16.0-4 7.0 Not Available [facility] (Lab) [address] [place], [address], 03/12/2023 15:55:00 03/12/20 23 03/12/2023 CBC/C OMPLE TE BLD COUNT W/DIF F monocytes 6.9 % 5.0-12 .0 Not Available [facility] (Lab) [address] [place], [address], 03/12/2023 15:55:00 03/12/20 23 03/12/2023 CBC/C OMPLE TE BLD COUNT W/DIF F eosinophils 0.6 % 1.0-7. 0 low Not Available [facility] (Lab) [address] [place], [address], 03/12/2023 15:55:00 03/12/20 23 03/12/2023 CBC/C OMPLE TE BLD COUNT W/DIF F basophils 0.4 % 0.0-2. 0 Not Available [facility] (Lab) [address] [place], [address], 03/12/2023 15:55:00 03/12/20 23 03/12/2023 CBC/C OMPLE TE BLD COUNT W/DIF F immature granulocytes 0.4 % 0.00-0 .50 Not Available [facility] (Lab) [address] [place], [address], 03/12/2023 15:55:00 03/12/20 23 03/12/2023 CBC/C OMPLE TE BLD COUNT W/DIF F neutrophils, absolute count 10.14 x10'3 /uL 1.5-8. 0 high Not Available [facility] (Lab) [address] [place], [address], 03/12/2023 15:55:00 03/12/20 23 03/12/2023 CBC/C OMPLE TE BLD COUNT W/DIF F lymphocytes, absolute count 2.67 x10'3 /uL 1.07-3 .43 Not Available [facility] (Lab) [address] [place], [address], 03/12/2023 15:55:00 03/12/20 23 03/12/2023 CBC/C OMPLE TE BLD COUNT W/DIF F monocytes, absolute count 0.97 x10'3 /uL 0.29-0 .99 Not Available [facility] (Lab) [address] [place], [address], 03/12/2023 15:55:00 03/12/20 23 03/12/2023 CBC/C OMPLE TE BLD COUNT W/DIF F eosinophils, absolute count 0.08 x10'3 /uL 0.02-0 .53 Not Available [facility] (Lab) [address] [place], [address], 03/12/2023 15:55:00 03/12/20 23 03/12/2023 CBC/C OMPLE TE BLD COUNT W/DIF F basophils, absolute count 0.05 x10'3 /uL 0.01-0 .08 Not Available [facility] (Lab) [address] [place], [address], 03/12/2023 15:55:00 03/12/20 23 03/12/2023 CBC/C OMPLE TE BLD COUNT W/DIF F immature granulocytes ,absolute 0.06 x10'3 /uL 0.00-0 .05 high Not Available [facility] (Lab) [address] [place], [address], 03/12/2023 15:55:00 03/12/20 23 03/12/2023 CBC/C OMPLE TE BLD COUNT W/DIF F nucleated red blood cells 0.0 % -0 Not Available [facility] (Lab) [address] [place], [address], 03/12/2023 15:55:00 03/12/20 23 03/12/2023 CBC/C OMPLE TE BLD COUNT W/DIF F NRBC# 0.00 x10'3 /uL Not Available [facility] (Lab) [address] [place], [address], 03/12/2023 15:55:00 09/06/19 23 09/05/2022 MAMMO , scree nithya, bilat eral No observ ation record ed. [email or web address] [facility] [address] [facility] [place], [place], [address], 09/09/2022 10:56:10 Result Notes None recorded. Problems Name Problem SNOMED Code Status Onset Date Resolution Date Notes Provider Name and Address Organization Details Recorded Time Anxiety disorder 073352449 Active Not Available [facility] 4 04:10:23 Osteoarthr itis 381281746 Active Not Available [facility] 4 04:10:23 Bronchioli tis 2281923 Active Not Available [facility] 4 04:10:23 Hyperlipid emia 72307165 Active Not Available [facility] 4 04:10:23 Otitis media 02426784 Active Not Available [facility] 4 04:10:23 Thrombocyt osis 5792400 Active Not Available [facility] 4 04:10:23 Hyponatrem ia 48243830 Active Not Available [facility] 4 04:10:23 Low back pain 584372045 Active 2017 Not Available [facility] 4 04:10:23 Rhinitis 62011535 Active 2017 Not Available [facility] 4 04:10:23 Severe chronic obstructiv e pulmonary disease 999941256 Active 2019 Not Available [facility] 4 04:10:23 Hypoxia 522815481 Active 2019 Not Available [facility] 4 04:10:23 Posterior rhinorrhea 15192549 Active 2021 Not Available [facility] 4 04:10:23 Eczema of external auditory canal 28405033 Active 2021 Not Available [facility] 4 04:10:23 Dyspnea on exertion 63424099 Active 2021 Not Available [facility] 4 04:10:23 Traction bronchiect asis 52677177 Active 2021 Not Available [facility] 4 04:10:23 Vitamin D deficiency 20314726 Active 2022 Not Available [facility] 4 04:10:23 Osteoporos is 51834691 Active 2022 Not Available [facility] 4 04:10:23 Nicotine dependence with current use 878979333 Active 2022 Not Available [facility] 4 04:10:23 Microscopi c hematuria 596704522 Active 2022 Not Available [facility] 4 04:10:23 Allergic rhinitis 38217599 Active 2022 Not Available [facility] 4 04:10:23 Sciatica 29246562 Active 2022 Not Available [facility] 4 04:10:23 Coronary atheroscle rosis 697335023 Active 2022 Not Available [facility] 4 04:10:23 Pain of bilateral hip joints 7215984748603 9100 Active 2022 Not Available [facility] 4 04:10:23 Nicotine dependence 49496750 Active 2022 Not Available [facility] 4 04:10:23 Sciatica 08830004 Active 2022 Not Available [facility] 4 04:10:23 Hemorrhoid s 10093937 Active 2022 Not Available [facility] 4 04:10:23 Leukocytos is 193274757 Active 2022 Not Available [facility] 4 04:10:23 Problem Notes None recorded. Procedures Surgical History Date Name Laterality Status Provider Name and Address Organization Details Recorded Time 10/15/19 23 Medicare Wellness CPT Code, subsequent completed Tere Zendejas, [employer]ACH-[facility] [address] [facility], [facility] [address], [place], [address], [facility] Icera 10/14/2022 14:23:51 02/03/20 20 Most Recent Bone Density completed Not Available [facility] 05/14/2022 04:41:58 03/30/19 19 Date of Last Colonoscopy completed Not Available [facility] 05/14/2022 04:41:58 Breast Biopsy completed Not Available [facility] 05/14/2022 04:42:01 procedure on facial bone completed Not Available [facility] 05/14/2022 04:42:01 Imaging Results None recorded. Procedure Notes None recorded. Medical Equipment None Reported. Allergies Allergen ID Allergen Name Allergen Category Reaction Reaction Severity Criticality Documentation Date Start Date Code Code System Note Provider Name and Address Organization Details Recorded Time 7945 Product containin g penicilli n (product) medicatio n Not available Not available Not available 05/14/2022 32325 8001 SNOMED Not Available [facility] 3 05:03:16 7946 ibuprofen medicatio n Not available Not available Not available 05/14/2022 5640 RxNorm Not Available [facility] 3 05:03:16 7947 codeine medicatio n Not available Not available Not available 05/14/2022 2670 RxNorm Not Available [facility] 3 05:03:16 7948 aspirin medicatio n Not available Not available Not available 05/14/2022 1191 RxNorm Not Available [facility] 3 05:03:16 7949 caffeine food,medi cation Not available Not available Not available 05/14/2022 1886 RxNorm Not Available [facility] 3 05:03:16 7950 Advil medicatio n Not available Not available Not available 05/14/2022 48042 0 RxNorm pt is unsur e if she has an aller gy to this Not Available [facility] 3 05:03:16 Medications Name Sig Start [...] in Arterial blood by Pulse oximetry Systolic And Diastolic Provider Name and Address Organization Details Last Updated DateTime 3 157.48 cm 17 kg/m2 14095.0 9 g 97.9 [degF] 94 /min 96 % 96 % 114/72 mm[Hg] Kirsten Subramanian MA [facility] [employer] [facility] 3 14:04:48 Date Recorded Body height Body mass index (BMI) Body weight Heart rate Oxygen saturation Oxygen saturation in Arterial blood by Pulse oximetry Systolic And Diastolic Provider Name and Address Organization Details Last Updated DateTime 3 157.48 cm 17.4 kg/m2 00242.2 8 g 91 /min 95 % 95 % 118/72 mm[Hg] Abimbola Montesinos [facility] [employer] [facility] 3 14:20:34 Date Recorded Body height Body mass index (BMI) Body weight Body temperature Heart rate Oxygen saturation Oxygen saturation in Arterial blood by Pulse oximetry Systolic And Diastolic Provider Name and Address Organization Details Last Updated DateTime 3 157.48 cm 16.8 kg/m2 65240.5 g 97.9 [degF] 102 /min 96 % 96 % 116/72 mm[Hg] Kirsten Subramanian [facility]O [facility] [employer] [facility] 3 13:57:41 Date Recorded Body height Body mass index (BMI) Body weight Body temperature Heart rate Oxygen saturation Oxygen saturation in Arterial blood by Pulse oximetry Systolic And Diastolic Provider Name and Address Organization Details Last Updated DateTime 3 157.48 cm 16.6 kg/m2 10519.9 1 g 98.7 [degF] 104 /min 96 % 96 % 114/74 mm[Hg] Kirsten Subramanian [facility]O [facility] [employer] [facility] 3 14:31:05 Date Recorded Body mass index (BMI) Body height Oxygen saturation Oxygen saturation in Arterial blood by Pulse oximetry Heart rate Body temperature Body weight Systolic And Diastolic Provider Name and Address Organization Details Last Updated DateTime 2 17.7 kg/m2 157.48 cm 91 % 91 % 102 /min 96.7 [degF] 89773.4 6 g 120/70 mm[Hg] Not Available [facility] 3 04:44:33 Social History Question Answer Notes LastModified by Organization Details LastModified Time Tobacco Smoking Status Current Some Day Smoker Not Available [facility] 05/14/2022 04:19:36 Do You Have An Advance Directive? Yes MIGRATION.0301 [id number] Information not available 05/14/2022 Are You Blind Or Do You Have Difficulty Seeing? No MIGRATION.0301 257636 Information not available 05/14/2022 What Is Your Level Of Caffeine Consumption? None MIGRATION.0301 576296 Information not available 05/14/2022 How Much Tobacco Do You Chew? None MIGRATION.0301 408754 Information not available 05/14/2022 In The 14 Days Before Symptom Onset, Have You Had Close Contact With A Laboratory-confi rmed COVID-19 While That Case Was Ill? No MIGRATION.0301 836698 Information not available 05/14/2022 In The 14 Days Before Symptom Onset, Have You Had Close Contact With A Person Who Is Under Investigation For COVID-19 While That Person Was Ill? No MIGRATION.0301 601706 Information not available 05/14/2022 Are You Deaf Or Do You Have Serious Difficulty Hearing? No MIGRATION.0301 840279 Information not available 05/14/2022 What Type Of Diet Are You Following? REGULAR MIGRATION.0301 672691 Information not available 05/14/2022 Which Illicit Or Recreational Drugs Have You Used? None MIGRATION.0301 104734 Information not available 05/14/2022 Have There Been Any Changes To Your Family Or Social Situation? No MIGRATION.0301 745111 Information not available 05/14/2022 What Is The Fluoride Status Of Your Home? Unknown MIGRATION.0301 719839 Information not available 05/14/2022 Do You Use Insect Repellent Routinely? No MIGRATION.0301 365025 Information not available 05/14/2022 Where Do You Live? [place] MIGRATION.0301 540247 Information not available 05/14/2022 Do You Have A Medical Power Of Slurry Control Tender? Yes MIGRATION.0301 368696 Information not available 05/14/2022 What Was The Date Of Your Most Recent Tobacco Screening? 02/10/2023 [email or web address] Information not available 02/10/2023 What Is Your Relationship Status? MIGRATION.0301 447351 Information not available 05/14/2022 Do You Use Your Seat Belt Or Car Seat Routinely? Yes MIGRATION.0301 062907 Information not available 05/14/2022 Do You Have Smoke And Carbon Monoxide Detectors In Your Home? Yes MIGRATION.0301 973934 Information not available 05/14/2022 Are You Passively Exposed To Smoke? Yes MIGRATION.0301 401123 Information not available 05/14/2022 Are There Any Smokers In Your House? Yes MIGRATION.0301 582457 Information not available 05/14/2022 How Much Tobacco Do You Smoke? 1 PPD MIGRATION.0301 142920 Information not available 05/14/2022 Do You Use Sunscreen Routinely? No MIGRATION.0301 073090 Information not available 05/14/2022 Have You Recently Traveled Abroad? No MIGRATION.0301 256388 Information not available 05/14/2022 Do You Have Difficulty Walking Or Climbing Stairs? Yes Due To Hips MIGRATION.0301 476798 Information not available 05/14/2022 Do You Have Any Dietary Restrictions? No MIGRATION.0301 348412 Information not available 05/14/2022 Sex: Unknown Functional Status Question Answer Note LastModified by Organizat ion Details LastModified Time Do you use any illicit or recreational drugs? No MIGRATION.650472 0849 Information not available 05/14/2022 Do you or have you ever used any other forms of tobacco or nicotine? No MIGRATION.998413 4545 Information not available 05/14/2022 What is your level of alcohol consumption? None MIGRATION.367193 2489 Information not available 05/14/2022 Do you or have you ever used smokeless tobacco? Never used smokeless tobacco MIGRATION.177928 0347 Information not available 05/14/2022 Do you have transportation difficulties? No MIGRATION.405843 3630 Information not available 05/14/2022 Are you able to walk? YESWOREST MIGRATION.014570 8497 Information not available 05/14/2022 Do you have difficulty doing errands alone? No MIGRATION.407391 5463 Information not available 05/14/2022 Are you able to care for yourself? Yes MIGRATION.294416 1178 Information not available 05/14/2022 What is your occupation? retired MIGRATION.064039 4642 Information not available 05/14/2022 Do you have difficulty dressing or bathing? No MIGRATION.811127 7390 Information not available 05/14/2022 Do you or have you ever used e-cigarettes or vape? Never used electronic cigarettes MIGRATION.666693 8878 Information not available 05/14/2022 What is your exercise level? Occasional MIGRATION.743402 5732 Information not available 05/14/2022 Mental Status Question Answer Note LastModified by Organizat ion Details LastModified Time Do you feel stressed (tense, restless, nervous, or anxious, or unable to sleep at night)? [id number] MIGRATION.15370213 26 Information not available 05/14/2022 Do you have difficulty concentrating, remembering or making decisions? No MIGRATION.71770956 26 Information not available 05/14/2022 Family History Relationship Description Onset Age of this Age Resolved Age Notes LastModified by Organization Details LastModified Time Mother Hyperlipidem ia MIGRATION.389 [id number] Not available 05/14/2022 04:42:05 Mother Diabetes mellitus MIGRATION.947 [id number] Not available 05/14/2022 04:42:05 Mother Hypertensive disorder MIGRATION.850 [id number] Not available 05/14/2022 04:42:05 Father Hypertensive disorder MIGRATION.621 [id number] Not available 05/14/2022 04:42:05 Father Malignant tumor of colon MIGRATION.913 [id number] Not available 05/14/2022 04:42:05 Father Heart disease MIGRATION.251 2762019 Not available 05/14/2022 04:42:05 Medical History Condition Response BLINDNESS N NERVE DISEASE N RHEUMATIC FEVER N BLADDER PROBLEMS N KIDNEY STONES N MRSA N OTHER # 1 N POLIO N LUNG DISEASE/DISORDER N RADIATION / CHEMOTHERAPY N COPD Y Other # 2 N BLOOD DISEASES N EAR OR HEARING PROBLEMS N MUMPS N BOWEL PROBLEMS N DEPRESSION (INCLUDING POST ) N STROKE/TIA N ULCERS N BENIGN PROSTATIC [...] virus, trivalent, preservative 3 completed Not Available [facility] 03/27/2023 04:10:24 Influenza, high-dose, trivalent, PF 9 completed Not Available [facility] 03/27/2023 04:10:24 Influenza, split virus, quadrivalent, preservative 9 completed Not Available [facility] 03/27/2023 04:10:23 COVID-19, mRNA, LNP-S, PF, 30 mcg/0.3 mL dose 1 completed Not Available [facility] 03/27/2023 04:10:23 Influenza, split virus, trivalent, preservative 1 completed Not Available [facility] 03/27/2023 04:10:24 COVID-19, mRNA, LNP-S, PF, 30 mcg/0.3 mL dose 1 completed Not Available [facility] 03/27/2023 04:10:23 COVID-19, mRNA, LNP-S, PF, 30 mcg/0.3 mL dose 1 completed Not Available [facility] 03/27/2023 04:10:23 Influenza, high-dose, quadrivalent, PF 0 completed Not Available [facility] 03/27/2023 04:10:23 Influenza, split virus, quadrivalent, preservative 0 completed Not Available [facility] 03/27/2023 04:10:23 pneumococcal polysaccharide PPV23 0 completed Not Available [facility] 03/27/2023 04:10:24 Pneumococcal conjugate PCV 13 9 completed Not Available [facility] 03/27/2023 04:10:24 Influenza, split virus, quadrivalent, preservative 8 completed Not Available [facility] 03/27/2023 04:10:23 influenza, unspecified formulation 7 completed Not Available [facility] 03/27/2023 04:10:24 Influenza, high-dose, trivalent, PF 6 completed Not Available [facility] 03/27/2023 04:10:24 Influenza, high-dose, quadrivalent, PF 2 completed Not Available [facility] 03/27/2023 04:10:23 Influenza, high-dose, trivalent, PF 6 completed Not Available [facility] 03/27/2023 04:10:24 Influenza, high-dose, trivalent, PF 4 completed Not Available [facility] 03/27/2023 04:10:24 Influenza, high-dose, quadrivalent, PF 3 completed [facility] [place] [facility] 01/05/2023 14:18:16 Past Encounters Encounter ID Performer Location Encounter Start Date Encounter Closed Date Diagnosis/Indication Diagnosis SNOMED-CT Code Diagnosis ICD10 Code Diagnosis Note [id number] [facility] [place] [address] [place] [id number] 09/07/2020 00:00:00 09/07/2020 16:32:12 [id number] Jose Luis bailey MD [facility] Internal Med [facility] [address] [facility], [facility] [address] [place] [address] 09/14/2020 00:00:00 09/14/2020 15:44:54 [id number] [facility] [place] [address] [place] [address] 10/25/2020 00:00:00 10/25/2020 14:26:06 [id number] [facility] [place] [address] [place] [id number] 01/18/2021 00:00:00 01/18/2021 15:43:37 [id number] Jose Luis bailey MD [facility] Internal [facility] [place] [address] [place] [address] [place] [address] 01/25/2021 00:00:00 01/25/2021 16:04:32 [id number] [facility] [place] [address] [place] [id number] 05/21/2021 00:00:00 05/21/2021 16:12:54 [id number] Jose Luis bailey MD [facility] [place] [address] [place] [address] [place] [address] 07/16/2021 00:00:00 07/16/2021 17:24:17 [id number] [facility] [place] [address] [facility] [address] [place] [address] 08/16/2021 00:00:00 08/16/2021 15:05:22 [id number] Jose Luis bailey MD S_[facility] Internal Med [place] [address] [place] [address] 12/16/2021 00:00:00 12/16/2021 15:06:13 [id number] Aydee Patel [facility]- [facility] [place] [address] [place] [address] 02/12/2022 00:00:00 02/12/2022 16:55:21 [id number] MD CARLOS DrakeS_[facility] Internal Med [place] [address] [place] [address] 06/16/2022 13:56:21 06/16/2022 14:22:35 Hyperlipidemia 83226371 E78.5 no meds, lifestyle measuresch mendy labs Vitamin D deficiency 347 10098 E55.9 on OTC supplement Severe chr onic obstructive pulmonary disease 003045849 J44.9 follows pulmonolog y- Aydee Cruz Anororefus es O2 Sciatica 89438441 M54.30 follows pain management on gabapentin Osteoporosis 41076012 M8 1.0 refuses meds, she is aware of risks of untreated osteoporos is including risk of fracture and deathweigh t bearing exercise recommende d, on OTC calcium and vitamin D3 Nicotine dependence 5629 4008 F17.200 1 min spent with patient discussing risks, cessation options. Patient encouraged to quit. Coronary atherosclerosis 035630579 I25.10 incidental finding on LDCT, she refuses cardiology referral Microscopic hematuria 19 0384620 R31.29 Follows urology- Dr. Pelletier oscopy was negative Pain of bi lateral hip joints [id number] 4890252 M25.551 M25.552 follows pain management as abovethey have recommende d injections - she declinessh e also declines PT Allergic rhinitis 076825 04 J30.9 on singulair, flonaseCal l office if any change in mood or behavior Screening mammography 24 841299 Z12.31 Hemorrhoids 20829441 K64 .9 On Anusol p.r.n. [id number] Aydee Patel, [facility]- [facility] Pulmon[facility] [place] [address] [place] [address] 08/13/2022 14:01:09 08/13/2022 14:41:23 Severe chronic obstructive pulmonary disease 851849411 J44.9 PFT testing December 2018 with severe [...] 6 months, PRN for concerns Traction bronchiectasis 57035567 J47.[address] chestStart flutter valve - [...] adenopathy Repeat due 12/2022 - ordered today [id number] Jose Luis bailey MD [facility] Internal Med [place] [address] [facility], [address] [place] [address] 10/14/2022 13:48:35 10/14/2022 14:28:53 Hyperlipidemia 53747262 E78.5 no meds, lifestyle measuresch mendy labs Vitamin D deficiency 347 71082 E55.9 on OTC supplement Severe chr onic obstructive pulmonary disease 907761837 J44.9 follows pulmonolog y- Aydeeregla Cruz Anororefus es O2 Sciatica 03153913 M54.30 follows pain management on gabapentin Osteoporosis 30901237 M8 1.0 refuses meds, she is aware of risks of untreated osteoporos is including risk of fracture and deathweigh t bearing exercise recommende d, on OTC calcium and vitamin D3 Nicotine dependence 5629 4008 F17.200 1 min spent with patient discussing risks, cessation options. Patient encouraged to quit. Coronary atherosclerosis 988180927 I25.10 incidental finding on LDCT, she refuses cardiology referral Microscopic hematuria 19 2225393 R31.29 Follows urology- Dr. Pelletier oscopy was negative Pain of bi lateral hip joints 8921395086 6637369 M25.551 M25.552 follows pain management as abovethey have recommende d injections - she declinessh e also declines PT Allergic rhinitis 270072 04 J30.9 on singulair, flonaseCal l office if any change in mood or behavior Hemorrhoids 08574226 K64 .9 On Anusol p.r.n. Adult heal th examination 060734136 Z00.00 Screening for disorder 288461091 Z13.9 [id number] Jose Luis bailey MD [facility] Internal [facility] [place] [address] [facility], [address] [place] [address] 02/10/2023 14:11:50 02/10/2023 14:53:11 Hyperlipidemia 43215462 E78.5 no meds, lifestyle measuresch mendy labs Vitamin D deficiency 347 76591 E55.9 on OTC supplement Severe chr onic obstructive pulmonary disease 192912244 J44.9 follows pulmonolog y- Aydee Cruz Anororefus es O2 Sciatica 03186833 M54.30 follows pain management on gabapentin Osteoporosis 07551632 M8 1.0 refuses meds, she is aware of risks of untreated osteoporos is including risk of fracture and deathweigh t bearing exercise recommende d, on OTC calcium and vitamin D3 Nicotine dependence 5629 4008 F17.200 1 min spent with patient discussing risks, cessation options. Patient encouraged to quit. Coronary atherosclerosis 334394744 I25.10 incidental finding on LDCT, she refuses cardiology referral Microscopic hematuria 19 9960225 R31.29 Follows urology- Dr. Chenqcyst oscopy was negative Pain of bi lateral hip joints 2411779430 5464220 M25.551 M25.552 follows pain management as abovethey have recommende d injections - she declinessh e also declines PT Allergic rhinitis 745190 04 J30.9 on singulair, flonaseCal l office if any change in mood or behavior Hemorrhoids 43105011 K64 .9 On Anusol p.r.n. Renewal of prescription 516889830 Z76.0 Health Concerns Section Related Observation LastModified by Organization Detai ls LastModified Time None Recorded Concern Status LastModified by Organization Details LastModified Time None Recorded Advance Directives Directive Y: Payers Insurance Date Sequence Insurance Name Policy Number Policy Paul Covered Member ID Paul Member ID Guarantor Name 02/13/2023 1 [place] Glendy Roblero [id number] Glendy Roblero 02/13/2023 2 [facility]PPLEMENT[place] [id number] Glendy Roblero [id number] Glendy Roblero Notes Date Note Type [...] in he last 6 months. Aydee Patel, [employer] [address] [facility], [place], [address], [employer] 08/13/2022 16:09:58 10/14/2022 text/html Glendy presents to day for follow up. She is also due [...] is taking OTC multivitamin, calcium, and vitamin-D. Tere Zendejas, [employer]C [address] [facility], [place], [address], [employer] 10/14/2022 15:30:54 02/10/2023 text/html Glendy presents to day for follow-up. She has been following Aydee [...] not interested in cessation at this time. Tere Zendejas, CURRICULUM COACH-C [address] [facility], [facility] [address], [place], [address], [place] [facility] [place] [employer] [facility] 02/10/2023 15:24:12 OBGyn Episode No OBEpisode recorded.
--- OUTSIDE RECORDS SUMMARY | 2024-09-30 11:42 | XMS_ITS | Clinical Summary ---
Author Organization [facility] Cipriano mayen Giselle Address [address] [place] [address] Care Team Providers Care Tile Trimmer Name Role Phone Unavailable Primary Care [...] mouth. Active fluticasone propionate (FLONASE) 50 mcg/spray [place], Suspension nasal inhaler Administer 2 Sprays in each nostril daily. Active Active Problems No known active problems Encounters Date Type Department Care Team Description 09/29/2024 External Device Data [facility] ABSTRACTION Provider, Abstract 09/28/2024 External Device Data [facility] ABSTRACTION Provider, Abstract 08/31/2024 External Device Data [facility] ABSTRACTION Provider, Abstract 08/31/2024 External Device Data [facility] ABSTRACTION Provider, Abstract 08/09/2024 External Device Data [facility] ABSTRACTION Provider, Abstract 08/04/2024 External Device Data [facility] ABSTRACTION Provider, Abstract 08/03/2024 External Device Data STL ABSTRACTION Provider, Abstract 07/04/2024 Orders Only [facility] - [place] [address] [place] [address] Shaun Barlow MD from Last 3 [...] on file Legal Sex Female 11:50 AM CERTIFIED MEETING PROFESSIONAL Gender Identity Not on file Sexual Orientation [...] 154.9 cm (5' 1) 04/15/2023 3:03 PM CERTIFIED MEETING PROFESSIONAL Body Mass Index 15.87 04/15/2023 3:03 PM CERTIFIED MEETING PROFESSIONAL Plan of Treatment Upcoming Encounters Date Type Department Care Team (Late st Contact Info) Description 09/30/2024 12:30 PM CDT Office Visit [facility] - [place] [address] [facility] [address] [place] [address] Shaun Barlow MD [address] [facility] [address] [place] [address] Health Maintenance Due Date Last Done Comments DTAP/TDAP/TD VACCINES (1 - Tdap) 1965 Lung Cancer Screening 1996 ZOSTER VACCINE (1 of 2) 1996 RSV VACCINE (60+ or ) (1 - 1-dose 75+ series) 2021 INFLUENZA VACCINE (#1) 2024 3, 12/16/2021, 12/16/2020, Additional history exists OSTEOPOROSIS [...] Months Insurance MEDICARE PART A AND B [facility]
--- OUTSIDE RECORDS SUMMARY | 2024-09-30 11:42 | XMS_ITS | Continuity of Care Document ---
Author Organization [facility] Address [address] [place] [address] [place] [address] Phone Care Team Providers Care Logistics And Planning Manager Name Role Phone Gamal Recio Unavailable [...] Providers Copied on Encounter Office/outpat ient Visit, [facility], [address] [place] [address] [address], [place], [place], [id number], [place] tel:[phone] [facility] No Information 2-201 0 Hemal Yeung. Ar[address] [facility] [place] [facility] [address], [place], [address], [place]. tel:[phone] Referring Provider: Arlet Calderon [facility] [address], [place], [address]. tel:[phone] Office/outpat ient Visit, [facility], [address] [place] [address] [address], [place], [place], [id number], [place] tel:[phone] [facility] [place] No Information Mar-0 9-201 0 Valente Petel. [address], [place], [place], [facility], . tel:[phone] Office/outpat ient Visit, [facility], [address], [place], [place], [id number], [place] tel:[phone] [facility] No Information Oct-0 5-200 9 Doisy Edward. [address], [place], [place], [facility], [place]. tel:[phone] [facility]pat [facility], [facility], [address] [place] [address] [address], [place], [place], [id number], [place] tel:[phone] SEC [facility] No Information Sep-2 1-200 9 Doisy Edward. [address] , [address], [place], [place], [facility], [place]. tel:[phone] [facility], [address] [place] [address] [address], [place], [place], [id number], [place] tel:[phone] [facility] No Information Benton-3 1-200 9 Doisy Edward. [address] , [address], [place], [facility], [place]. tel:[phone] Office/outpat ient Visit, [facility], [address] [place] [address] [address], [place], [place], [id number], [place] tel:[phone] [facility] [place] No Information Robby-0 9-200 8 Doisy Edward. [address] , [address], [place], [facility], [place]. tel:[phone] Office/outpat ient Visit, [facility], [address], [place], [place], [id number], tel:[phone] [facility] No Information 200 7 Hemal Yeung. [address] [place] [address] , [address], [place], [place], [facility], . tel:[phone] Referring Provider: Arlet Calderon [facility] [address], [place], [place], [facility] tel:[phone] [facility], [address], [place], [place], [id number], tel:[phone] [facility] [place] No Information 7 Hemal Yeung. [address] [place] [address] , [address], [place], [facility], . tel:[phone] Referring Provider: Arlet Calderon [facility] [address], [place], [place], [facility] tel:[phone] Family History Family Member Type Diagnosis Age [...]
--- OUTSIDE RECORDS SUMMARY | 2024-09-30 11:42 | XMS_ITS | Encounter Summary ---
Author Organization [facility] Address [address] [place] [address] Care Team Providers Care Finishing Machine Tender Name Role Phone Unavailable Primary Care Provider Unavailabl e Encounter Details Date Type Department Care Team (Late st Contact Info) Description 09/28/2024 External Device Data [facility] ABSTRACTION Provider, Abstract NO ADDRESS ON FILE Social History Tobacco Use Types Packs/Day Years Used Date Smoking Tobacco: Every Day Cigarettes 1.5 25 Comments Unknown Sex and Gender Information Value Date Recorded Sex Assigned at Not on file Legal Sex Female 11:50 AM MANAGER PROGRESSIVE CARE Gender Identity Not on file Sexual Orientation Not on file documented as of this encounter Plan of Treatment Upcoming Encounters Date Type Department Care Team (Late st Contact Info) Description 09/30/2024 12:30 PM CDT Office Visit [facility] Oncology and Hematology - [place] [address] [place] [address] [facility] [address] [place] [address] Shaun Barlow MD [address] [facility] [address] [place] [address] documented as of this encounter Visit Diagnoses Not on filedocumented in this encounter
--- OUTSIDE RECORDS SUMMARY | 2024-09-30 11:42 | XMS_ITS | Data Portability ---
Author Organization [facility] Yao Morin Address [address] [place] [address] Care Team Providers Care Hard Tile Setter Name Role Phone MARY GUDINO Primary Care Provider Unavailab le Assessment No assessment recorded. Plan of Treatment Reminders Order Date Submit Date Provider Last Modified By Organization Details Last Modified Time Details Appointments ANY 15 2024 01:00P M HARDIK Reilly Not available Not available Not available Lab TSH + free T4, serum 2024 025 [place] [facility], [address], [place], [address], 07/19/2024 15:11:09 noninvasi ve colorecta l cancer DNA + occult blood screening , QL, stool 2024 025 [facility] (Colog[facility]ard Orders Only), [address], [address], [place], [address], 07/31/2024 17:49:25 lipid panel, serum 2024 025 [place] [facility], [address], [place], [address], 07/19/2024 15:11:08 hepatic function panel, serum 2024 025 [place] [facility], [address], [place], [address], 07/19/2024 15:11:10 BMP, serum or plasma 2024 025 [place] [facility], [address], [place], [address], 07/19/2024 15:11:11 lipid panel, serum 2023 024 [email or web address], [address], [place], [address], 04/01/2024 14:03:10 hepatic function panel, serum 2023 024 [email or web address], [address], [place], [address], 04/01/2024 14:03:09 BMP, serum or plasma [facility], [address], [place], [address], 04/01/2024 14:03:09 TSH + free T4, serum 2023 024 [email or web address], [address], [place], [address], 04/01/2024 14:03:10 Referral None recorded. Procedures None recorded. Surgeries None recorded. Imaging CT, abdomen + pelvis, w/ contrast 2024 025 [facility] ([facility]), [address], [place], [address], 07/28/2024 09:37:00 XR, thoracic spine, 2 view 2023 024 [facility], [address], [place], [address], 07/10/2023 07:26:35 XR, scapula [address] [facility], [address], [place], [address], 07/29/2023 13:55:35 MAMMO, screening , digital, bilateral 2023 024 [email or web address] [facility], [address], [place], [address], 03/08/2024 09:41:10 DEXA 2023 024 [email or web address] [facility], [address], [place], [address], 03/08/2024 09:41:04 Medication Orders hydrocort isone 2.5 % topical cream with perineal applicato r 2024 025 [id number], [address], [place], [place], [id number], 07/18/2024 14:17:32 Patient TargetsNo targets recorded. Patient InstructionsNo instructions recorded. Reason for Referral None Reported. Results Created Date Observation Date Name Description Value Unit Range Abnormal Flag Note LastModifiedBy Organization Detail LastModifiedTime 07/19/1907/19/2024 LIPID PANEL W/ CHOL/ HDL RATIO cholesterol, total 179 mg/dL 100-19 9 Not Available [facility] ([facility]) [address] [place], [address], 07/19/2024 15:11:08 07/19/19 25 07/19/2024 LIPID PANEL W/ CHOL/ HDL RATIO triglyceride s 83 mg/dL 0-149 Not Available [facility] ([facility]) [address] [place], [address], 07/19/2024 15:11:08 07/19/19 25 07/19/2024 LIPID PANEL W/ CHOL/ HDL RATIO HDL cholesterol 73 mg/dL >39 Not Available [facility] ([facility]) [address] [place], [address], 07/19/2024 15:11:08 07/19/19 25 07/19/2024 LIPID PANEL W/ CHOL/ HDL RATIO VLDL cholesterol rubén 15 mg/dL 5-40 Not Available [facility] ([facility]) [address] [place], [address], 07/19/2024 15:11:08 07/19/19 25 07/19/2024 LIPID PANEL W/ CHOL/ HDL RATIO LDL chol calc ([facility]) 91 mg/dL 0-99 Not Available [facility] ([facility]) [address] [place], [address], 07/19/2024 15:11:08 07/19/19 25 07/19/2024 LIPID PANEL W/ CHOL/ HDL RATIO T. chol/HDL ratio 2.5 ratio 0.0-4. 4 T. Chol/ HDL Ratio Men Women 1/2 Avg.R isk 3.4 3.3 Avg.R isk 5.0 4.4 2X Avg.R isk 9.6 7.1 3X Avg.R isk 23.4 11.0 Not Available [facility] ([facility]) [address] [place], [address], 07/19/2024 15:11:08 07/19/19 25 07/19/2024 TSH+F REE T4 TSH 1.730 uIU/m L 0.450- 4.500 Not Available [facility] ([facility]) [address] [place], [address], 07/19/2024 15:11:09 07/19/19 25 07/19/2024 TSH+F REE T4 T4,free(dire ct) 1.07 NG/dL 0.82-1 .77 Not Available [facility] ([facility]) [address] [place], [address], 07/19/2024 15:11:09 07/19/19 25 07/19/2024 HEPAT IC FUNCT ION PANEL (7) protein, total 8.2 g/dL 6.0-8. 5 Not Available [facility] ([facility]) [address] [place], [address], 07/19/2024 15:11:10 07/19/19 25 07/19/2024 HEPAT IC FUNCT ION PANEL (7) albumin 4.4 g/dL 3.8-4. 8 Not Available [facility] ([facility]) [address] [facility] [place], [address], 07/19/2024 15:11:10 07/19/19 25 07/19/2024 HEPAT IC FUNCT ION PANEL (7) bilirubin, total 0.3 mg/dL 0.0-1. 2 Not Available [facility] ([facility]) [address] [facility] [place], [address], 07/19/2024 15:11:10 07/19/19 25 07/19/2024 HEPAT IC FUNCT ION PANEL (7) bilirubin, direct 0.12 mg/dL 0.00-0 .40 Not Available [facility] ([facility]) [address] [facility] [place], [address], 07/19/2024 15:11:10 07/19/19 25 07/19/2024 HEPAT IC FUNCT ION PANEL (7) alkaline phosphatase 59 IU/L 44-121 Not Available [facility] ([facility]) [address] [facility] [place], [address], 07/19/2024 15:11:10 07/19/19 25 07/19/2024 HEPAT IC FUNCT ION PANEL (7) AST (SGOT) 18 IU/L 0-40 Not Available [facility] ([facility]) [address] [facility] [place], [address], 07/19/2024 15:11:10 07/19/19 25 07/19/2024 HEPAT IC FUNCT ION PANEL (7) ALT (SGPT) 11 IU/L 0-32 Not Available [facility] ([facility]) [address] [place], [address], 07/19/2024 15:11:10 07/19/19 25 07/19/2024 BMP7+ EGFR glucose 107 mg/dL 70-99 above high normal Not Available [facility] ([facility]) [address] [place], [address], 07/19/2024 15:11:11 07/19/19 25 07/19/2024 BMP7+ EGFR BUN 9 mg/dL 8-27 Not Available [facility] ([facility]) [address] [place], [address], 07/19/2024 15:11:11 07/19/19 25 07/19/2024 BMP7+ EGFR creatinine 0.86 mg/dL 0.57-1 .00 Not Available [facility] ([facility]) [address] [place], [address], 07/19/2024 15:11:11 07/19/19 25 07/19/2024 BMP7+ EGFR eGFR 69 mL/mi n/1.7 3 >59 Not Available [facility] ([facility]) [address] [place], [address], 07/19/2024 15:11:11 07/19/19 25 07/19/2024 BMP7+ EGFR sodium 133 mmol/ L 134-14 4 below low normal Not Available [facility] ([facility]) [address] [place], [address], 07/19/2024 15:11:11 07/19/19 25 07/19/2024 BMP7+ EGFR potassium 5.1 mmol/ L 3.5-5. 2 Not Available [facility] ([facility]) [address] [place], [address], 07/19/2024 15:11:11 07/19/19 25 07/19/2024 BMP7+ EGFR chloride 94 mmol/ L 96-106 below low normal Not Available [facility] ([facility]) [address] [facility], [address], 07/19/2024 15:11:11 07/19/19 25 07/19/2024 BMP7+ EGFR carbon dioxide, total 23 mmol/ L Not Available [facility] ([facility]) [address] [facility], [place], [address], 07/19/2024 15:11:11 07/26/19 25 07/25/2024 COLOG UARD [...] cover ed preve ntive servi ce. Call [phone] for more infor matio n. A clini [...] adult s 45 [facility]. A posit michael [...] and had a 91% speci ficit y ([facility] [place] ure. Exact Scien rd Corpo ratio n. [facility] on, [place] Visit www.[facility] [place] /abou t/acc uracy -sens itivi ty-sp [facility] for more test infor josie n, refer avinash mann ngs, and preca ution s. Not Available [facility] (Cologuard Orders Only) [address], [place], [address], 07/31/2024 17:49:25 07/10/19 24 07/09/2023 XR, thora cic spine , 2 view No observ ation record ed. [email or web address] [address], [place], [address], 07/14/2023 17:47:16 07/29/19 25 07/28/2024 CT, abdom en + pelvi s, w/ contr ast No observ ation record ed. [facility] [address], [place], [address], 08/22/2024 16:20:44 Result Notes None recorded. Problems Name Problem SNOMED Code Status Onset Date Resolution Date Notes Provider Name and Address Organization Details Recorded Time Pain of bilateral hip joints 3953672560490 9100 Active 2023 HARDIK Reilly Attn: Accountin g,[address] [facility], [place], [address], [place] [facility] 4 15:47:17 Chronic obstructive pulmonary disease 56705933 Active 2023 HARDIK Reilly Attn: Accountin g,[address] [facility], [place], [address], [place] [facility] 4 15:47:18 Leukocytosi s 905240557 Active 2023 HARDIK Reilly Attn: Accountin g,[address] [facility], [place], [address], [place] [facility] 4 15:47:19 Hypoxemia 306015988 Active 2023 HARDIK Reilly Attn: Accountin g,[address] [facility], [place], [address], [place] [facility] 4 15:47:22 Kyphosis deformity of spine 820848445 Active 2023 HARDIK Reilly Attn: Accountin g,[address] [facility], [place], [address], [place] [facility] 4 15:47:24 Long-term drug therapy Active 2023 HARDIK Reilly Attn: Accountin g,[address] [facility], [place], [address], [place] [facility] 4 15:47:30 Allergic rhinitis 80474495 Active 2023 Alison Reyna, TRUST MAIL CLERK null, [place] [facility] 4 10:04:29 Body mass index less than 16.5 265284363 Active 2024 Kassy Roper MA null, [place] [facility] 5 13:58:55 Unintention al weight loss 967743382 Active 2024 HARDIK Reilly Attn: Accountin g,[address] [facility], [place], [address], [place] [facility] 5 19:31:44 External hemorrhoids 18374408 Active 2024 HARDIK Reilly Attn: Accountin g,[address] [facility], [place], [address], [place] - [facility] 5 19:32:45 Problem Notes None recorded. Medical Equipment None Reported. Allergies Allergen ID Allergen Name Allergen Category Reaction Reaction Severity Criticality Documentation Date Start Date Code Code System Note Provider Name and Address Organization Details Recorded Time 143938 codeine medicatio n Not available Not available Not available 07/08/2023 2670 RxNorm Kassy Roper MA null, [place] - [facility] 4 15:25:38 906601 Product containin g penicilli n (product) medicatio n Not available Not available Not available 07/08/2023 65213 8001 SNOMED Kassy Roper MA null, [place] [facility] 4 15:25:46 194514 ibuprofen medicatio n Not available Not available Not available 07/08/2023 5640 RxNorm Kassy Roper MA null, [place] [facility] 4 15:25:51 Medications Name [...] Not Available Not Available No t Available famotidine 20 mg tablet TAKE 1 TABLET BY MOUTH TWICE DAILY FOR UPSET STOMACH active Not Available Not Available No t [...] Not Available Not Available No t Available GaviLyte-G 236 gram-22.74 gram-6.74 gram-5.86 gram oral solution DRINK 240ML EVERY 15 MINUTES DIRECTED BY YOUR PROVIDER active Not Available Not Available No t [...] blood by Pulse oximetry Systolic And Diastolic Systolic And Diastolic Provider Name and Address Organization Details Last Updated DateTime 4 18 /min 94 % 94 % 140/80 mm[Hg] 132/80 mm[Hg] HARDIK Reilly Attn: Rebeka xie,[address] [place], [address], [facility] 4 16:00:16 Date Recorded Body height Body mass index (BMI) Body weight Oxygen saturation Oxygen saturation in Arterial blood by Pulse oximetry Heart rate Systolic And Diastolic Provider Name and Address Organization Details Last Updated DateTime 4 155.58 cm 16.7 kg/m2 72653.7 2 g 89 % 89 % 101 /min 130/72 mm[Hg] Kassy Roper MA [facility] 4 15:34:41 Date Recorded Body height Body mass index (BMI) Body weight Oxygen saturation Oxygen saturation in Arterial blood by Pulse oximetry Heart rate Respiratory rate Systolic And Diastolic Provider Name and Address Organization Details Last Updated DateTime 5 155.58 cm 12.1 kg/m2 30915.4 3 g 96 % 96 % 76 /min 18 /min 122/80 mm[Hg] Kassy Roper MA [facility] 5 14:01:19 Date Recorded Body height Body mass index (BMI) Body weight Respiratory rate Oxygen saturation Oxygen saturation in Arterial blood by Pulse oximetry Heart rate Systolic And Diastolic Provider Name and Address Organization Details Last Updated DateTime 4 155.58 cm 15.6 kg/m2 22469.3 5 g 18 /min 96 % 96 % 88 /min 138/88 mm[Hg] Kassy Roper MA [facility] 4 15:27:13 Social History Question Answer Notes LastModified by Organizat ion Details LastModified Time Tobacco Smoking Status Current Every Day Smoker Kassy Roper MA null, [facility] 07/08/2023 15:29:20 Do You Have An Advance [...] anxious, or unable to sleep at night)? [id number] Information not available 07/08/2023 Family History Relationship [...] Skin Problems N Anemia N Heart Attack ([place]) N Anxiety Disorder N Diabetes N Muscle, Joint, or Bone Problems Y Seizures/Epilepsy N Acid Reflux (GERD) N Cancer Y Stroke N Asthma N Allergies N High Cholesterol N Hepatitis N Liver Disease N Headaches N Heart Failure N Osteoporosis N Gynecological [...] 4 completed HARDIK Reilly Attn: Accounting,[address] [facility], [place], [address], [facility] 12/31/2023 14:28:21 Past Encounters Encounter ID Performer Location Encounter Start Date Encounter Closed Date Diagnosis/Indication Diagnosis SNOMED-CT Code Diagnosis ICD10 Code Diagnosis Note [id number] Alessio Patricio MD [facility] [email or web address] [place] [address] 07/08/2023 15:05:31 07/08/2023 16:10:39 Chronic obstructive pulmonary disease 41005145 J44.9 Pulmonary is [facility]. Leukocytosis 187988688 D 72.[address] Brownlee and her WBC improved and she follows up in 6 months. Pain of bi lateral hip joints 3546372355 7196491 M25.551 M25.552 hx noted. sees pain management . Long-term drug therapy 344479539 Z79.899 will await records that she will bring us tomorrow. she thinks labs were done in the winter plus dr. Brownlee completed some recently. Kyphosis d eformity of spine 785636052 M40.209 check xray tspine and scapula with deformity noted on exam today Screening mammography 24 000565 Z12.31 annual mammogram due Screening for osteoporosis 546197942 Z13.820 due for DEXA screening. Hypoxemia 520607622 R09. 02 86% on room air after walking, up to 94% with rest. [id number] Alessio Patricio MD [facility] [email or web address] [place] [address] 12/16/2023 14:38:45 12/24/2023 11:54:41 Chronic obstructive pulmonary disease 07879123 J44.9 Pulmonary is [facility]. Leukocytosis 300106863 D 72.[address] Brownlee and her WBC improved and she follows up in 6 months. Pain of bi lateral hip joints 2290556558 8214513 M25.551 M25.552 hx noted. sees pain management . Hypoxemia 127490375 R09. 02 86% on room air after walking, up to 94% with rest. Kyphosis d eformity of spine 854894092 M40.209 check xray tspine and scapula with deformity noted on exam today Long-term drug therapy 617120403 Z79.899 All routine labs were ordered for routine six-month evaluation Cholesterol screening 27 0977094 Z13.220 Body mass index less than 20 105726076 Z68.1 15.6 [id number] Alessio Particio MD [facility] [address] [place] [address] 12/31/2023 14:07:26 01/04/2024 15:07:00 Administration of influenza vaccine 29772539 Z23 [id number] Alessio Patricio MD [facility] [address] [place] [address] 07/18/2024 13:38:14 07/18/2024 14:41:19 Body mass index less than 16.5 537721430 Z68.1 12.1 Chronic ob structive pulmonary disease 80645104 J44.9 Pulmonary is [facility]. Up-to-date on appointmen t with him Leukocytosis 964980573 D 72.[address] Brownlee and her WBC improved and she follows up in 6 months. Pain of bi lateral hip joints 9898474207 7100398 M25.551 M25.552 hx noted. sees pain management . Kyphosis d eformity of spine 392136874 M40.209 Noted Long-term drug therapy 715472614 Z79.899 Liver and kidney function ordered Cholesterol screening 27 7185459 Z13.220 Cholestero l screening ordered External hemorrhoids 239 99370 K64.4 Patient needs a refill on her hydrocorti sone cream for p.r.n. use to the rectum for an external hemorrhoid Unintentio nal weight loss 721417404 R63.[address] of the abdomen and pelvis with contrast because she has already had a chest CT from her pulmonolog ist. We need to evaluate underlying cause for persistent weight loss. She also needs updated thyroid labs Screening for malignant neoplasm of colon 253371921 Z12.11 Patient does not want colonoscop y screening at her age of 79 but she does agree to a Cologuard screening Positive s creening for depression on PHQ-9 (Patient Health Questionnaire 9) 3245610471 66496 Z13.31 Patient scored a 5 on screening [...] Member ID Paul Member ID Guarantor Name 07/18/2024 [place] [facility] - [facility] Glendy Roblero [id number] 2 Glendy Roblero 07/18/2024 1 [place] Glendy Roblero [id number] Glendy Roblero 08/09/2024 2 [place] [id number] Glendy Roblero [id number] Glendy Roblero Notes Date Note Type Note Provider Name and Address Organization Details Recorded Time 07/08/2023 text/html COPDReported bypatient.Notes:bolivar ing Anoro Ellipta inhaler.Hip(s)Repor kevyn bypatient.Notes:arden at. hip arthritis. sees pain management and gets gabapentin 100mg daily. HARDIK Reilly Attn: Accounting,[address] [place], [address], [facility] 07/15/2023 13:40:25 12/16/2023 text/html COPDReported bypatient.Notes:bolivar ing Anoro Ellipta inhaler. Patient follows with warp coiler for managementHip(s)Rep orted bypatient.Notes:arden at. hip arthritis. sees pain management and gets gabapentin 100mg daily. Patient has chronic leukocytosis and follows with oncology hematology for management and evaluation HRADIK Reilly Attn: Accounting,[address] [place], [address], [place] [facility] 01/04/2024 10:12:51 07/18/2024 text/html COPDReported bypatient.Notes:bolivar ing Anoro Ellipta inhaler. Patient follows with warp coiler for managementHip(s)Rep orted bypatient.Notes:arden at. hip arthritis. sees pain management and gets gabapentin 100mg daily. Patient has chronic leukocytosis and follows with oncology hematology for management and evaluation Patient continues to lose weight which she says is unintentional HARDIK Reilly Attn: Accounting,[address] [place], [address], [facility] 08/07/2024 19:34:15 OBGyn Episode No OBEpisode recorded.
--- OUTSIDE RECORDS SUMMARY | 2024-09-30 11:42 | XMS_ITS | Clinical Summary ---
Author Organization [facility] Care Team Providers Care Drawbench Operator Helper Name Role Phone Unavailable Primary Care [...]
[2024-09-30 11:57] LABS: Hematocrit 38.9 % (37.0-47.0); Hemoglobin 12.9 g/dL (12.0-15.0); Immature Granulocyte Percent A 0.4 % (0-0.5); Lymphocytes Absolute Auto 2.20 K/mm3 (0.9-3.2); Mean Corpuscular HGB Conc 33.2 g/dl (32-36); Mean Corpuscular Hemoglobin 33.1 pg (26-34); Mean Corpuscular Volume 99.7 fl (80-100); Nucleated Red Blood Cells Absolute Auto 0.000 K/mm3 (0.0-0.012); Nucleated Red Blood Cells Perc 0.0 % (0.0-0.2); Platelet Count Result 398 k/mm3 (150-375); Red Blood Count 3.90 M/mm3 (4.2-5.4); White Blood Count 13.5 K/mm3 (4.5-10.0)
[2024-09-30 12:03] LABS: Blood Urea Nitrogen 7 mg/dL (8-26); Carbon Dioxide 25 mmol/L (22-30); Chloride 95 mmol/L (98-109); Estimated Glomerular Filt Rate > 60; Glucose 121 mg/dL (70-105); Ionized Calcium (POC) 1.19 mmol/L (1.11-1.31); Potassium 4.1 mmol/L (3.5-4.9); Sodium 132 mmol/L (138-146)
== END 2024-09-30 11:38 | disposition home or self-care (01) ==
LOC: ANHLAB 11:38
PROVIDERS: PCP Physician Assistant; Visit Provider Internal Medicine Hematology & Oncology
DX: D72.829 Elevated white blood cell count, unspecified (principal)
CPT/HCPCS: 36415; 80047; 85025

== ENCOUNTER 2024-11-10 00:28 | Day surgery (SDC) | payer MEDICARE, SELFPAY ==
--- OUTSIDE RECORDS SUMMARY | 2009-09-14 04:30 | XMS_ITS | Continuity of Care Document ---
Author Organization [facility] Address [address] [place] [address] [place] [address] Phone Care Team Providers Care Escrow Manager Name Role Phone Gamal Recio Unavailable Unavailable Procedures Procedure Date Office/outpatient Visit, Est Office/outpatient Visit, Est Office/outpatient Visit, Est Office/outpatient Visit, Est Eye Exam & Treatment Refraction Office/outpatient Visit, Est Office/outpatient Visit, Est Eye Exam Established Pt Revise Eyelashes Advance Directives Directive Yes / No Effective Date File Name No Information Encounters Encounter Description Practice Location Reason(s) For Visit Diagnoses Date Provider Providers Copied on Encounter Office/outpat ient Visit, [facility], [address] [place] [address] [address], [place], [place], [id number], [place] tel:[phone] [facility] No Information 2-201 0 Hemal Yeung. Arlet [facility] [address], [place], [address], [place]. tel:[phone] Referring Provider: Ar[facility] [address], [place], [address]. tel:[phone] Office/outpat ient Visit, [facility], [address] [place] [address] [address], [place], [place], [id number], [place] tel:[phone] [facility] [place] No Information Mar-0 9-201 0 Valente Petel. [address], [place], [place], [facility], . tel:[phone] Office/outpat ient Visit, [facility], [address], [place], [place], [id number], [place] tel:[phone] [facility] No Information Oct-0 5-200 9 Doisy Edward. [address], [place], [facility], [place]. tel:[phone] [facility]pat [facility], [address] [place] [address] [address], [place], [place], [id number], [place] tel:[phone] [facility] No Information Sep-2 1-200 9 Doisy Edward. [address] , [address], [place], [facility], [place]. tel:[phone] [facility], [address] [place] [address] [address], [place], [place], [id number], [place] tel:[phone] [facility] No Information Benton-3 1-200 9 Doisy Edward. [address], [place], [facility], [place]. tel:[phone] Office/outpat ient Visit, [facility], [address] [place] [address] [address], [place], [place], [id number], [place] tel:[phone] [facility] No Information Robby-0 9-200 8 Doisy Edward. [address], [place], [facility], [place]. tel:[phone] Office/outpat ient [facility], [facility], [address], [place], [place], [id number], tel:[phone] [facility] No Information 200 7 Hemal Yeung. [address] [place] [address] , [address], [place], [facility], . tel:[phone] Referring Provider: Arlet Calderon [facility] [address], [place], [facility]. tel:[phone] [facility], [address], [place], [place], [id number], tel:[phone] [facility] [place] No Information 7 Hemal Yeung. [address] [place] [address] , [address], [place], [facility], . tel:[phone] Referring Provider: Arlet Calderon [facility] [address], [place], [facility]. tel:[phone] Family History Family Member Type Diagnosis Age At Onset No Information Payers Payer name Insurance type Covered green party ID Authoriza tion(s) No Information Social History Type Description Quantity Date Captured Comments Sex Female Smoking Status No Information Chief Complaint And Reason For Visit No Information Reason For Referral Reason For Referral No Information History Of Present Illness Encounter Date Complaint History Of Prese nt Illness No Information Functional Status Date Functional Assessmen t No Information Instructions Date Instruction Additional Infor mation No Information Assessments Type Assessment Date No Information Patient Care Teams Name Effective Dates (start - stop) Status Members No Information
[2024-10-26 12:36] VITALS: BMI 12.4
--- OUTSIDE RECORDS SUMMARY | 2024-11-10 00:32 | XMS_ITS | Clinical Summary ---
Author Organization [facility] Care Team Providers Care Tape Rules Printing Machine Operator Name Role Phone Unavailable Primary Care Provider [...]
[2024-11-10 06:59] VITALS: BP 194/80; PULSE 93; RESP 16; TEMP 37.1; O2SAT 93
[2024-11-10] MEDS: SIMETHICONE ORAL SUSPENSION 20 MG/0.3 ML 30 ML BOTTLE 1.8 ML PO (07:12)
--- NOTE | 2024-11-10 07:15 | WPDANESEPPF ---
Anes - Initial Pre Proc Eval Procedure: Operation Date: 11/10/24 08:00 Proposed Procedures p Esophagogastroduodenoscopy - Jose Manuel Hernandez MD Date/Time: 11/10/24 07:15 Surgeon: Jose Manuel Hernandez MD Pre Op Diagnosis: Epigastric pain Patient Data Age: 79 Gender: F Height: 1.55 m Weight: 29.4 kg Last Vital Signs Temp 37.1 C 11/10/24 06:59 Pulse 93 11/10/24 06:59 Resp 16 11/10/24 06:59 BP 194/80 H 11/10/24 06:59 Pulse Ox 93 11/10/24 06:59 O2 Del Method Room Air 11/10/24 06:59 Allergies Allergy/AdvReac Type Severity Reaction Status Date / Time Penicillins Allergy Intermediate Swelling Verified 11/10/24 06:57 aspirin AdvReac Intermediate tachycardia Verified 11/10/24 06:57 codeine AdvReac Intermediate Vomiting Verified 11/10/24 06:57 ibuprofen AdvReac Intermediate Vomiting Verified 11/10/24 06:57 Home Medications ?Medication ?Instructions ?Recorded ?Confirmed ?Type cholecalciferol (vitamin D3) 50 50 mcg PO DAILY 05/07/23 11/10/24 History mcg (2,000 unit) capsule (D3-2000) gabapentin 100 mg capsule 100 mg PO DAILY 05/07/23 11/10/24 History montelukast 10 mg tablet 10 mg PO DAILY #30 tabs 06/01/23 11/10/24 Rx albuterol sulfate 90 mcg/actuation 1 - 2 inh inhalation Q4-6H PRN 06/06/24 10/26/24 Rx aerosol inhaler (Ventolin HFA) shortness of breath or wheezing #8.5 grams Anoro Ellipta 62.5 mcg-25 1 inh inhalation DAILY #60 ea 07/08/24 11/10/24 Rx mcg/actuation powder for inhalation (umeclidinium-vilanterol) Patient hx anesthesia problems: none Family hx anesthesia problems: none Results Review: All pre-operative results and documents have been reviewed as part of the pre-operative evaluation. [facility] Past Medical History Medical History COPD (chronic obstructive pulmonary disease) Eczema of external auditory canal Hyponatremia Posterior rhinorrhea Thrombocytosis Otitis media Dyspnea on exertion Hyperlipidemia Bronchiolitis Hypoxia Vitamin D deficiency Family History Family History Mother Hyperlipidemia Hypertension Father Hypertension Heart disease Social History Social History Smoking packs per day: 1 Smoking cigarettes per day: 20.0 Years smoked: 25 Smoking pack-years: 25.00 Smoking status: Current every day smoker Tobacco type: cigarettes Second hand tobacco smoke exposure: Yes Alcohol intake: never Substance use: never Substance use type: does not use Living arrangements: with family Spiritual care concerns: No Anes - Eval Final PreProcedure Day of Procedure 11/10/24 07:15 Patient weight: cachectic Heart: regular rate and rhythm Lungs: clear to auscultation and normal air movement Airway: Mallampati scale class II Neurological: alert and oriented Last oral intake: >/= 8 hours ASA classification: III Emergent: no Anesthetic plan: proceed Anesthesia type and monitoring: general GIVS and standard monitoring Results Review: All pre-operative results and documents have been reviewed as part of the pre-operative evaluation. Informed Consent: The patient's anesthetic plan and its attendant risks and benefits were discussed with the patient/family/POA. Questions were solicited and answers provided to the satisfaction of the patient/family/POA.
[2024-11-10] MEDS: LACTATED RINGERS 1,000 ML 150 ML IV CONT (07:21)
--- NOTE | 2024-11-10 07:51 | PM.IMHP ---
H&P: HPI History of Present Illness Date/Time: 11/10/24 07:51 Chief Complaint: Weight loss Narrative: patient being investigated for severe weight loss, currently with a BMI of 12.2. Two months ago a colonoscopy revealed tubular adenomas but no neoplasm. A CT scan done in July this year was normal. She is now here for EGD. Review of Systems Review of Systems: All systems reviewed & are unremarkable except as noted in HPI and below PMFSH Past Medical History Medical History COPD (chronic obstructive pulmonary disease) Eczema of external auditory canal Hyponatremia Posterior rhinorrhea Thrombocytosis Otitis media Dyspnea on exertion Hyperlipidemia Bronchiolitis Hypoxia Vitamin D deficiency Family History Family History Mother Hyperlipidemia Hypertension Father Hypertension Heart disease Social History Social History Smoking packs per day: 1 Smoking cigarettes per day: 20.0 Years smoked: 25 Smoking pack-years: 25.00 Smoking status: Current every day smoker Tobacco type: cigarettes Second hand tobacco smoke exposure: Yes Alcohol intake: never Substance use: never Substance use type: does not use Living arrangements: with family Spiritual care concerns: No Meds Home Medications and Allergies Home Medications ?Medication ?Instructions ?Recorded ?Confirmed ?Type cholecalciferol (vitamin D3) 50 50 mcg PO DAILY 05/07/23 11/10/24 History mcg (2,000 unit) capsule (D3-2000) gabapentin 100 mg capsule 100 mg PO DAILY 05/07/23 11/10/24 History montelukast 10 mg tablet 10 mg PO DAILY #30 tabs 06/01/23 11/10/24 Rx albuterol sulfate 90 mcg/actuation 1 - 2 inh inhalation Q4-6H PRN 06/06/24 10/26/24 Rx aerosol inhaler (Ventolin HFA) shortness of breath or wheezing #8.5 grams Anoro Ellipta 62.5 mcg-25 1 inh inhalation DAILY #60 ea 07/08/24 11/10/24 Rx mcg/actuation powder for inhalation (umeclidinium-vilanterol) Allergies Allergy/AdvReac Type Severity Reaction Status Date / Time Penicillins Allergy Intermediate Swelling Verified 11/10/24 06:57 aspirin AdvReac Intermediate tachycardia Verified 11/10/24 06:57 codeine AdvReac Intermediate Vomiting Verified 11/10/24 06:57 ibuprofen AdvReac Intermediate Vomiting Verified 11/10/24 06:57 Vital Signs Vital Signs - 24 hr 11/10/24 06:59 Temperature 98.8 F Pulse Rate 93 Respiratory Rate 16 Blood Pressure 194/80 H Pulse Oximetry 93 Oxygen Delivery Room Air Exam Const: General: cooperative and healthy appearing Resp: Effort & Inspection: normal respiratory effort and able to speak in complete sentences Auscultation: clear to auscultation bilaterally Cardio: Rate: regular rate Rhythm: regular rhythm GI: Inspection: normal to inspection GI Palp: No No hepatosplenomegaly present Auscultation: normal bowel sounds Rectal Exam: deferred Skin: General skin exam: normal color Psych: Appearance: grossly normal Mental Status: mental status grossly normal Assessment and Plan Assessment and plan (1) Weight loss: Code(s): R63.4 - Abnormal weight loss Status: Acute Assessment and Plan: The patient is deemed a good candidate for the procedure. Consent signed. Will proceed.
--- NOTE | 2024-11-10 08:06 | S_PTH ---
PATIENT: Glendy Roblero LOC: [facility]#:[id number] AGE/SX: 79/F ROOM: RE11/10/[address]: Jose Manuel Hernandez MD : 1945 BED: DIS: 11/10/2024 SPEC #: [id number] RECD: 11/10/24 10:17 STATUS: LADY REKimi #: [id number] BABAR: 11/10/24 08:[address]: Jose Manuel Hernandez DEPT: [facility] Surgical RECD BY: Deysi Romo ENTERED: 11/10/24 10:18 SP TYPE: Surgical OTHR DR: Nolvia Correia, PA-C Tissues: A - Gastric Biopsy B - Gastric Biopsy Procedures: Hematoxylin and Eosin Stain Gross and Microscopic Level 4
[2024-11-10 08:10] VITALS: BP 125/64; PULSE 87; RESP 20; O2SAT 100
[2024-11-10 08:20] VITALS: BP 127/81; PULSE 92; RESP 25; O2SAT 100
[2024-11-10 08:30] VITALS: BP 149/90; PULSE 97; RESP 23; O2SAT 100
== END 2024-11-10 08:40 | disposition home or self-care (01) ==
PROVIDERS: PCP Physician Assistant; Referring Provider Physician Assistant; Visit Provider Internal Medicine Gastroenterology
PROC: 0DJ08ZZ Inspection of Upper Intestinal Tract, Via Natural or Artificial Opening Endoscopic (ICD-10-PCS; CPT 43239; principal; 2024-11-10 08:00)
DX: K29.51 Unspecified chronic gastritis with bleeding (principal); R63.4 Abnormal weight loss; F17.210 Nicotine dependence, cigarettes, uncomplicated; Z68.1 Body mass index [BMI] 19.9 or less, adult
CPT/HCPCS: 43239; 88305; J2003; J2704; J7120

== ENCOUNTER 2025-01-31 15:15 | Outpatient (CLI) | payer MEDICARE, SELFPAY ==
--- NOTE | ~2025-01-31 | XR_ITS ---
EXAMINATION: XR hip BI wo pelvis, 01/31/2025 15:26 DIABETOLOGIST HISTORY: Pain in right hip COMPARISON: No comparisons available. Findings: No acute fracture or malalignment. No significant degenerative changes. Soft tissues unremarkable. Impression: No acute fracture or malalignment. Reviewed, dictated and finalized at location P. ETOLOGIST Impression: No acute fracture or malalignment.
--- NOTE | ~2025-01-31 | XR_ITS ---
EXAMINATION: XR sacroiliac joints min 3V, 01/31/2025 15:26 MANAGER RECRUITING HISTORY: Sacrolilitis COMPARISON: No comparisons available. Findings: No acute fracture or malalignment. Sclerosis of the sacroiliac joints however there is no bridging osteophyte formation or erosion identified Soft tissues unremarkable. Impression: No acute fracture or malalignment. Reviewed, dictated and finalized at location P. GER RECRUITING Impression: No acute fracture or malalignment.
== END 2025-01-31 15:16 | disposition home or self-care (01) ==
LOC: MICIMG 15:17
PROVIDERS: PCP Physician Assistant; Visit Provider Nurse Practitioner Family
DX: M46.1 Sacroiliitis, not elsewhere classified (principal); M25.551 Pain in right hip; M25.552 Pain in left hip
CPT/HCPCS: 72202; 73521